=== PATIENT | female | born 1955 | race Caucasian/White ===

== ENCOUNTER → 2016-10-18 | Outpatient (CLI) | payer OTHER, MEDICARE ==
--- NOTE | 2016-10-18 14:19 | REPMRS ---
Patient History The patient states she had a clinical breast exam in 09/2016. Family history of breast cancer in 2 maternal aunts, colorectal cancer in 4 other maternal aunts at age 50 or over, and colorectal cancer in 2 maternal uncles at age 50 or over. Benign cyst aspiration of the left breast, 2015. Digital Woman Screen Mammo: October 18, 2016 - Exam #: [id number] Bilateral CC and MLO view(s) were taken. Technologist: Tania Verma, Technologist Prior study comparison: October 18, 2015, digital woman screen mammo performed at [facility]. September 29, 2014, digital woman screen mammo performed at [facility]. September 28, 2013, digital woman screen mammo performed at [facility]. FINDINGS: There are scattered fibroglandular densities. There has been no change in the appearance of the mammogram from the prior studies. There is a mild amount of residual fibroglandular tissue which is fairly symmetric. There is no interval development of dominant mass, architectural distortion, or clustered microcalcification suggestive of malignancy. There is a benign appearing intramammary node in the upper outer quadrant of the right breast. Scattered lymph nodes are seen in the axillae. No significant changes when compared with prior studies. ASSESSMENT: BI-RADS/ACR category 2 mammogram. Benign finding(s). Recommendation Routine screening mammogram in 1 year (for women over age 40). This mammogram was interpreted with the aid of an FDA-approved computer-aided dectection system. A. Negative x-ray reports should not delay biopsy if a dominant or clinically suspicious mass is present. B. Four to eight percent of cancers are not identified by mammography. C. Adenosis and dense breast may obscure an underlying neoplasm. Electronically Signed By: Rachid Jung MD 10/18/16 7820
== END ==
LOC: M WHC 13:07
PROVIDERS: ATTEND Nurse Practitioner Family
DX: Z12.31 Encounter for screening mammogram for malignant neoplasm of breast (principal); Z92.89 Personal history of other medical treatment

== ENCOUNTER → 2016-10-22 | Outpatient (CLI) | payer BC ==
--- NOTE | 2016-10-22 13:22 | REP ---
PELVIC ULTRASOUND: Real-time sonographic evaluation of the pelvis performed utilizing transabdominal and endovaginal technique. Bladder measures 6.8 x 8.8 x 5.0 cm. Patient has had a hysterectomy in 1994. Ovaries could not be seen. No mass or free fluid is seen in the pelvis. IMPRESSION: Negative pelvic ultrasound status post hysterectomy.
== END ==
LOC: M WHC 11:26
PROVIDERS: ATTEND Nurse Practitioner Family
DX: R10.31 Right lower quadrant pain (principal); Z90.710 Acquired absence of both cervix and uterus

== ENCOUNTER → 2017-11-04 | Outpatient (CLI) | payer MEDICARE, BC | LOC: M RAD 10:40 | DX: D24.1 Benign neoplasm of right breast (principal); N60.31 Fibrosclerosis of right breast | CPT/HCPCS: 77066 ==

== ENCOUNTER → 2017-12-24 | Outpatient (REF) | payer MEDICARE, BC | LOC: M LAB REF 09:16 | DX: C50.911 Malignant neoplasm of unspecified site of right female breast (principal) | CPT/HCPCS: 88305 ==

== ENCOUNTER → 2018-10-30 | Outpatient (CLI) | payer MEDICARE, BC | LOC: M WHC 10:50 | PROVIDERS: ATTEND Nurse Practitioner Family | DX: Z12.31 Encounter for screening mammogram for malignant neoplasm of breast (principal); Z53.8 Procedure and treatment not carried out for other reasons ==

== ENCOUNTER → 2020-01-11 | Outpatient (CLI) | payer MEDICARE, BC ==
--- NOTE | 2020-01-11 13:17 | REPMRS ---
Patient History The patient states she had a clinical breast exam in December 2019. Family history of breast cancer at age 50 or over in maternal aunt, colorectal cancer at age 50 or over in maternal aunt, colorectal cancer at age 50 or over in maternal aunt, colorectal cancer at age 50 or over in maternal aunt, colorectal cancer at age 50 or over in maternal aunt, colorectal cancer at age 50 or over in maternal uncle, colorectal cancer at age 50 or over in maternal uncle, breast cancer in maternal aunt. Benign core biopsy of the right breast, December 24, 2017. Benign cyst aspiration of the left breast, 2016. Benign lumpectomy of the left breast, 2016. 3D TOMOSYNTHESIS WAS PERFORMED. [facility] lifetime risk for breast cancer is 9.7%. VOLPARA DENSITY B. Digital Woman Screen Mammo: January 11, 2020 - Exam #: [id number] Bilateral CC and MLO view(s) were taken. Technologist: Viola Mayfield, Technologist Prior study comparison: November 05, 2018, digital mammo diagnostic bilateral, performed at [facility]. November 04, 2017, digital mammo diagnostic bilateral, performed at [facility]. FINDINGS: There are scattered fibroglandular densities. There has been no change in the appearance of the mammogram from the prior studies. There is a mild amount of residual fibroglandular tissue which is fairly symmetric. There is no interval development of dominant mass, architectural distortion, or clustered microcalcification suggestive of malignancy. Assessment: BI-RADS/ACR category 1 mammogram. Negative Mammogram. Recommendation Routine screening mammogram in 1 year (for women over age 40). This mammogram was interpreted with the aid of an FDA-approved computer-aided dectection system. Electronically Signed By: Wes Valencia MD 01/11/20 0523
== END ==
LOC: M WHC 11:13
PROVIDERS: ATTEND Nurse Practitioner Family
DX: Z01.419 Encounter for gynecological examination (general) (routine) without abnormal findings (principal); Z12.31 Encounter for screening mammogram for malignant neoplasm of breast; Z86.018 Personal history of other benign neoplasm
CPT/HCPCS: 77063; 77067; G0101

== ENCOUNTER 2020-09-08 12:34 | Emergency (ER) | payer MEDICARE, BC ==
[~2020-09-08] VITALS: Ht 157.5 cm; Wt 76.4 kg
--- OUTSIDE RECORDS SUMMARY | 2020-09-08 12:40 | CCD | Clinical Summary ---
Author Author RecoveredPersonRecord_000001 Lucy MD Organization Unknown Address [address] [place] [address] Phone Unavailable Care Team Providers Care [employer] Name Role Phone Stacie GRANADOS, Dr. Tarun Kong MD Unavailable [phone] Jacqueline, Nurse Practitioner, Jennifer Unavailable Unava ilable Social History Code Name Start Date Stop Date Never Smoker 07/11/2011 Sex: Female Problems SNOMED Problem Status Date Discovered Last Modifie d Date Other fatigue Active 07/07/2020 07/07/2020 Other chest pain Active 07/06/2020 07/06/2020 Familial hypercholesterolemia Active 06/14/2020 07/06/2020 Chronic rhinitis Active 06/26/2020 06/26/2020 Gastro-esophageal reflux disease without esophagitis A ctive 05/17/2009 06/26/2020 Nonalcoholic steatohepatitis (ARIAS) Active 06/2506/26/2020 Fatty (change of) liver, not elsewhere classified Reso lved 08/04/2017 06/25/2020 Obstructive sleep apnea, CPAP complaint Active 1 09/17/2014 06/26/2020 Mild intermittent asthma with (acute) exacerbation Act laura 07/15/2007 06/26/2020 Type 2 diabetes mellitus without complications Active 07/15/2007 06/26/2020 Migraine with aura, not intractable, without sta tus migrainosus Active 09/04/2016 03/09/2020 Low back pain Active 02/01/2020 02/01/2020 Body mass index (BMI) 32.0-32.9, adult Active 12/08/2019 Right upper quadrant pain Active 11/09/2018 [id number] Syncope Active 01/20/2018 01/20/2018 Liver steatosis, stage 2 Active 08/04/201702/2018 Body Mass Index 33.0-33.9, adult Active 07/07/20 17 07/07/2017 [id number] Migraine with aura, without mention of intractable migraine without mention of status migrainosus Active 09/04/2016 09/04/2016 [id number] Obstructive sleep apnea, CPAP compliant Active 1 09/17/2014 10/20/2017 [id number] Obstructive sleep apnea (adult) (pediatric) Active 07/17/2015 10/20/2017 Chronic maxillary sinusitis Active 06/13/2014 Nervousness Active 11/15/2013 Family history of colon cancer Active 04/19/2013 Vitamin B12 deficiency Active 11/02/2012 Fibrocystic disease of breasts Active 07/11/2011 Vitamin D deficiency Active 07/23/2010 [id number] Type II diabetes Active 07/15/2007 04/27/2018 [id number] Asthma Active 07/15/2007 04/27/2018 GERD Active 05/17/2009 04/27/2018 13632375 Hypercholesterolemia Active 11/21/2009 018 57172025 Meniere's disease, NOS Active 07/15/200704/27 Medications Brand Strength Dose/Route/Frequency RxNorm Code Date Started Date Discontinued Status Vitamin E 400 unit oral capsule Take 1 capsule(s) by mouth daily 933038 07/15/2007 Current MVI* pill 1 po qd 0 07/15/2007 Current Vitamin B6/Vitamin B12/Folic Acid/Calcium Carbonate 75mg/12m cg/1mg/200mg Tablet Take 1 tablet(s) by mouth daily 0 07/15/2007 Current alcohol swabs* swabs as directed 0 07/18/2009 C urrent Vitamin D3 1,000 unit (25 mcg) oral tablet 2 tabs po qd 783160 01/2011 Current meclizine 25 mg oral tablet 1 po TID prn 492214 08/23/2009 Current Vitamin B-12 100 mcg oral tablet Take 1 tablet(s) by mouth daily 9595 11/02/2012 Current Biotin* No Entry No Entry 0 05/28/2016 Current Endur-C with khurram hips No Entry No Entry 0 05/28/2016 Current ipratropium-albuteroL 0.5 mg-3 mg(2.5 mg base)/3 m L Inhalation Solution for Nebulization INHALE THE CONTENTS OF ONE VIAL VIA NEBU LIZER EVERY FOUR HOURS NEEDED [id number] 07/15/2007 Current Xopenex 1.25 mg/3 mL Inhalation Solution for Neb ulization INHALE ONE VIAL VIA NEBULIZER THREE TIMES A DAY (EVERY SIX TO EIGHT HOURS APART) (JOANNA) 584019 07/15/2007 Current Noritate 1 % Topical Cream Apply thin film to affected area carey ly 314412 07/15/2007 Current triamcinolone acetonide 55 mcg Intranasal Aerosol, Alba 1 s pray(s) in each nostril daily 6704369 07/15/2007 Current EPINEPHrine 0.3 mg/0.3 mL injection Auto-Injector IN JECT DIRECTED NEEDED WITH NEXT BEE STING 7015635 10/20/2017 Current Mylanta Double Strength 400mg/400mg/40mg Chewable Tablet Chew 1 tablet(s) prn 0 07/15/2007 Current Proventil HFA 90 mcg/actuation Inhalation HFA Aerosol Inhaler Inhale 2 puff(s) by mouth q 4 to 6 hr 738424 07/15/2007 Current triamterene-hydrochlorothiazid 37.5-25 mg oral capsule TAKE ONE CAPSULE BY MOUTH DAILY 875394 07/15/2007 Current Clarinex 5 mg oral tablet Take 1 tablet(s) by mouth daily 191407 1 09/15/2006 Current Farxiga 10 mg oral tablet Take 1 tablet(s) by mouth daily 0830040 02/13/2016 Current OneTouch Ultra Blue Test Strip No Entry TEST THREE TIMES A DAY 0 10/21/2014 Current Crestor 10 mg oral tablet Take 1 tablet(s) by mouth daily 767117 07/15/2007 Current Advair Diskus 500-50 mcg/dose Inhalation Blister, With Inhalation Device Inhale 1 puff(s) bid 979976 07/15/2007 Current metFORMIN 500 mg oral tablet TAKE ONE TABLET THREE TIMES A DAY 8 93076 04/17/2010 Current Differin 0.1 % Topical Cream Apply thin film to a ffected area daily at nighttime 616137 05/17/2009 Current miscellaneous medical supply miscellaneous Miscellaneous Neb kit for nebulizer machine daily 0 06/26/2020 06/27/2020 Stopped omeprazole 40 mg oral capsule,delayed release (ente antelmo coated) take 1 capsule (40 mg) by oral route 1 times per day before a meal 2002082903/09/2020 Current Astelin 137 mcg (0.1 %) Intranasal Aerosol, Alba 1 spray qd 64698 76 07/15/2007 Current Singulair 10 mg oral tablet 1 po qd 025432 07/15/2007 Current miscellaneous medical supply miscellaneous Miscellaneous Neb kit for nebulizer machine daily 0 06/26/2020 06/27/2020 Stopped miscellaneous medical supply miscellaneous Miscellaneous Neb kit for nebulizer machine daily 0 06/26/2020 Current * No Code - miscellaneous medical supply miscellaneous Miscellaneous * No Code - miscellaneous medical supply miscellaneous Miscellaneous Allergies Date Identified Type Cause Reaction Severity Status Code System Co de 07/15/2007 Allergy to substance Sulfas Low Active 07/15/2007 Allergy to substance Penicillins Low Active 07/15/2007 Allergy to substance Macrolides Low Active 07/15/2007 Allergy to substance Codeine Low Active RXNORM 2670 07/15/2007 Allergy to substance Ceclor Low Active RXNORM 087607 07/15/2007 Allergy to substance Hycomine Low Active 07/15/2007 Allergy to substance Doxycycline Low Active RXN ORM 3640 07/15/2007 Allergy to substance Vioxx Low Active RXNORM 354111 07/15/2007 Allergy to substance Vicodin Low Active RXNORM 392713 07/15/2007 Allergy to substance Aspirin Low Active RXNORM 1191 07/11/2011 Allergy to substance Valium Low Active RXNORM 730535 Procedures Code System Code Description Date Ordered Status CPT 46716 Ultrasound, abdominal, real time with image documentation; complete 06/26/2020 completed CPT 3074F Most recent systolic blood pressure < 130 mm Hg (DM) (HTN) 06/26/2020 completed CPT 3078F Most recent diastolic blood pres sure <80 mm Hg (HTN)1 (DM)4 06/26/2020 completed Immunizations Date Vaccine Status CVX 12/08/2019 Influenza, injectable, MDCK, quadrivalent, prese rvative Completed 186 11/25/2012 Td adult Completed 09 06/12/2015 Afluria Completed 141 06/19/2017 Afluria Completed 141 06/15/2018 Fluarix Quadrivalent pf Completed 150 06/03/2007 Flulaval Completed 141 05/24/2008 Flulaval Completed 141 05/24/2014 Flulaval Completed 141 06/10/2012 Fluvirin (4 + years dose) Completed 141 06/06/2010 Influenza Virus Vaccine, unspecified formulation Completed 88 05/30/2009 PNEUMOVAX 23 (Pneumococcal PPV23) Completed 33 03/11/2014 PNEUMOVAX 23 (Pneumococcal PPV23) Completed 33 11/22/2012 Adacel (Tdap) Completed 115 Vital Signs Date PulseOx Height Weight BMI Temp Respiration Heart Rate Blood P ressure IO2C 07/07/2020 97% 157.48cm 79.88kg 32.21kg/m2 36.11Cel 96/min 124/ 74mm[Hg] 06/26/2020 98% 157.48cm 80.29kg 32.38kg/m2 36.17Cel 100/min 118 /68mm[Hg] Assessment * E78.01 Familial hypercholesterolemia * R07.89 Other chest pain * R53.83 Other fatigue Plan of Treatment * Familial hypercholesterolemia* Orders: 39046 - Office/outpatient visit; established patient, level 4 * Other chest pain* Orders: 05321 - Fibrin degradation products, D-dimer; quantitative * Other fatigue* Orders: 77368 - Thyroid stimulating hormone (TSH) Referrals No referral reasons listed. Functional Status No Functional Status Listed Mental Status No Mental Status Listed Goals No Goals listed. Health Concerns No Health Concerns listed. Health Status Evaluations/Outcomes No Evaluations/Outcomes listed. Interventions No Interventions listed. Lab Test & Results Date Performed Test Result Status 06/26/2020 CANCELLED TEST: Hemoglobin (Hgb) A1c 7.2 UNK 06/26/2020 HgbA1c: Hemoglobin (Hgb) A1c 7.2 UNK 07/05/2020 COMPLETE BLOOD COUNT: LWBC 7.00 x10E3/uL compl eted 07/05/2020 COMPLETE BLOOD COUNT: LRBC 4.78 x10E6/uL compl eted 07/05/2020 COMPLETE BLOOD COUNT: LHGB 14.5 g/dL compl eted 07/05/2020 COMPLETE BLOOD COUNT: LHCT 43.7 % compl eted 07/05/2020 COMPLETE BLOOD COUNT: LMCV 91.4 fL compl eted 07/05/2020 COMPLETE BLOOD COUNT: LMCH 30.3 pg compl eted 07/05/2020 COMPLETE BLOOD COUNT: LMCHC 33.2 g/dL comp leted 07/05/2020 COMPLETE BLOOD COUNT: LRDW 12.2 % compl eted 07/05/2020 COMPLETE BLOOD COUNT: LPLT 310 x10E3/uL compl eted 07/05/2020 COMPLETE BLOOD COUNT: LMPV 8.9 fl compl eted 07/05/2020 COMPLETE BLOOD COUNT: ADRIANA% 68.6 % comp leted 07/05/2020 COMPLETE BLOOD COUNT: FAY% 21.9 % comp leted 07/05/2020 COMPLETE BLOOD COUNT: LMONO% 6.6 % com pleted 07/05/2020 COMPLETE BLOOD COUNT: LEOSIN% 1.4 % co mpleted 07/05/2020 COMPLETE BLOOD COUNT: LBASO% 0.4 % com pleted 07/05/2020 COMPLETE BLOOD COUNT: LIG% 1.1 % compl eted 07/05/2020 COMPLETE BLOOD COUNT: ADRIANA# 4.80 x10E3/uL comp leted 07/05/2020 COMPLETE BLOOD COUNT: FAY# 1.53 x10E3/uL comp leted 07/05/2020 COMPLETE BLOOD COUNT: LMONO# 0.46 x10E3/uL com pleted 07/05/2020 COMPLETE BLOOD COUNT: LEOSIN# 0.10 x10E3/uL co mpleted 07/05/2020 COMPLETE BLOOD COUNT: LBASO# 0.03 x10E3/uL com pleted 07/05/2020 COMPLETE BLOOD COUNT: LIG# 0.08 x10E3/uL compl eted 07/05/2020 COMPLETE BLOOD COUNT: LANRBC% 0 % co mpleted 07/05/2020 CHEST SINGLE VIEW: Radiology Report Exam Number: [id number] completed 07/05/2020 CHEST SINGLE VIEW: Radiology Report completed 07/05/2020 CHEST SINGLE VIEW: Radiology Report ATE OF EXAMINATION: 07/05/2020 14:14 EST completed 07/05/2020 CHEST SINGLE VIEW: Radiology Report completed 07/05/2020 CHEST SINGLE VIEW: Radiology Report CHEST SINGLE VIEW completed 07/05/2020 CHEST SINGLE VIEW: Radiology Report completed 07/05/2020 CHEST SINGLE VIEW: Radiology Report HISTORY: Janie st pain completed 07/05/2020 CHEST SINGLE VIEW: Radiology Report completed 07/05/2020 CHEST SINGLE VIEW: Radiology Report TECH NIQUE: Single frontal radiograph of chest completed 07/05/2020 CHEST SINGLE VIEW: Radiology Report completed 07/05/2020 CHEST SINGLE VIEW: Radiology Report COMPARISON: 03/25/2014 completed 07/05/2020 CHEST SINGLE VIEW: Radiology Report completed 07/05/2020 CHEST SINGLE VIEW: Radiology Report FINDINGS: completed 07/05/2020 CHEST SINGLE VIEW: Radiology Report completed 07/05/2020 CHEST SINGLE VIEW: Radiology Report No e vidence of focal consolidation, pneumothorax or large pleural completed 07/05/2020 CHEST SINGLE VIEW: Radiology Report effu trevor. Lungs are clear. Mediastinal structures are unremarkable. No completed 07/05/2020 CHEST SINGLE VIEW: Radiology Report aggressive o sseous lesions. completed 07/05/2020 CHEST SINGLE VIEW: Radiology Report completed 07/05/2020 CHEST SINGLE VIEW: Radiology Report IMPRESSION: completed 07/05/2020 CHEST SINGLE VIEW: Radiology Report completed 07/05/2020 CHEST SINGLE VIEW: Radiology Report No focal con solidation. completed 07/05/2020 CHEST SINGLE VIEW: Radiology Report completed 07/05/2020 CHEST SINGLE VIEW: Radiology Report Elec tronically signed in PS360 by: John Santos M.D. 07/05/2020 completed 07/05/2020 CHEST SINGLE VIEW: Radiology Report 14:49 EST completed 07/05/2020 CHEST SINGLE VIEW: Radiology Report completed 07/05/2020 CHEST SINGLE VIEW: Radiology Report completed 07/05/2020 CHEST SINGLE VIEW: Radiology Report Reported By: - Nilda SANTOS M.D. completed 07/05/2020 CHEST SINGLE VIEW: Radiology Report Signed By: Nilda SANTOS M.D. completed 07/05/2020 CHEST SINGLE VIEW: Radiology Report completed 07/05/2020 COMPREHENSIVE METABOLIC PROF: LGLU 168 mg/dL completed 07/05/2020 COMPREHENSIVE METABOLIC PROF: LBUN 16 mg/dL completed 07/05/2020 COMPREHENSIVE METABOLIC PROF: LCRE 0.444 mg/dL completed 07/05/2020 COMPREHENSIVE METABOLIC PROF: LGFR > 60 mL/min completed 07/05/2020 COMPREHENSIVE METABOLIC PROF: LCL 105 mmol/L completed 07/05/2020 COMPREHENSIVE METABOLIC PROF: RECYCLING TECHNICIAN 139 mmol/L completed 07/05/2020 COMPREHENSIVE METABOLIC PROF: LK 3.5 mmol/L completed 07/05/2020 COMPREHENSIVE METABOLIC PROF: LTCO2 28 mmol/L completed 07/05/2020 COMPREHENSIVE METABOLIC PROF: LAG 9.5 completed 07/05/2020 COMPREHENSIVE METABOLIC PROF: LCA 8.8 mg/dL completed 07/05/2020 COMPREHENSIVE METABOLIC PROF: LALP 65 U/L completed 07/05/2020 COMPREHENSIVE METABOLIC PROF: LTP 7.8 g/dL completed 07/05/2020 COMPREHENSIVE METABOLIC PROF: LALB 4.2 g/dL completed 07/05/2020 COMPREHENSIVE METABOLIC PROF: LGL 3.6 g/dL completed 07/05/2020 COMPREHENSIVE METABOLIC PROF: LA/G 1.2 completed 07/05/2020 COMPREHENSIVE METABOLIC PROF: LTBILI 0.4 mg/dL completed 07/05/2020 COMPREHENSIVE METABOLIC PROF: LALTI 39 U/L completed 07/05/2020 COMPREHENSIVE METABOLIC PROF: LAST 20 U/L completed 07/05/2020 TROPONIN I: LTROPI < 0.015 ng/mL completed 07/05/2020 TROPONIN I: LTROPI < 0.015 ng/mL completed 07/07/2020 D-DIMER: LDDIMER < 0.19 mg/L completed 07/07/2020 ULTRASENSITVE TSH: LTSH 2.33 uIU/mL complete d Test Code Code System Panel Description Date Ordered Note 70319 CPT Thyroid stimulating hormone (TSH) 020 Signed off by Dilan Quinones on 07-07-2020 04732 CPT Fibrin degradation products, D-dimer; sagrario ntitative 07/07/2020 Signed off by Dilan Quinones on 07-07-2020 39075 CPT Hemoglobin; glycosylated (A1C) 06/26/2020 Signed off by Dilan Quinones on 06-26-2020 Encounter Diagnosis * Familial hypercholesterolemia this is an ER follow upshe awoke ith sharp left anterior chest pain, hurt to pre ss on her chestlasted 6 hours or sowent to ER [facility] , work up neg for cardiacpai n has not recurredshe did not have calf pain but has had DVT in pastexam is NI t hink this was costochondritis, or pleuritis, will do a D dimer to be sureshe wou ld like a TSH as wellif D Dimer pos will do CTA lungs D dimer is neg 1415 hours Patient to be evaluated for familial hypercholesterolemia. She cannot recall wh en the diagnosis of hypercholesterolemia was made. Current treatment includes C restor and diet. Compliance with treatment has been good; she takes her medicat ion as directed, maintains her low cholesterol diet, and follows up as directed. She denies experiencing any hypercholesterolemia related symptoms. Most recen t lab tests include LDL: 89 (mg/dL) (03/09/2020), HDL: 42 (mg/dL) (03/09/2020) , Total Cholesterol: 149 (mg/dL) (03/09/2020), Triglycerides: 188 (mg/dL) (). * Other chest pain Other chest pain details; the discomfort is located primarily in the left anteri or chest. There is no radiation. The pain initially began two days ago. Typic ally, individual episodes of chest pain 6 hours. She characterizes the pain as moderate to severe in intensity and sharp. It seems to be worse with deep breat adrian. She has not found anything that alleviates the pain. She denies associat ed clammy sensation, cough, numbness, tingling, a sense of impending doom, nause a, vomiting, rapid heart beat, palpitations, dyspnea, diaphoresis, heartburn, be lching and fever. * Other fatigue
--- OUTSIDE RECORDS SUMMARY | 2020-09-08 12:40 | CCD ---
Continuity of Care Document (CCD) Created on: 06/22/2020 ThadLucy mendoza External Reference #: [id number] : [id number] Sex: Female Author Lucy Koroma M.D. Organization Unknown Address [address], [address], [place] [address] Phone [phone] Problems Active Problems Provider Date Moderate persistent asthma Onset: 2018 Allergic rhinitis caused by mold Onset: 10/06/2018 Note: On IT. 4+ reaction to mold spores on intradermal test completed in 2013. Allergic rhinitis due to animal hair and dander Onset: 10/06/2018 Note: On IT. 4+ positive reaction to cat dander on intradermal test completed in 2013. Allergic rhinitis due to house dust mite Onset: 10/06/2018 Note: On IT. 4+ reaction to dust mites o n intradermal test completed in 2013. Allergic rhinitis due to pollen Onset: 0 10/06/2018 Note: On IT. 4+ reaction to ragweed poll en with a 3+ reaction to various grass pollens on scratch test and a 3+ reaction to five weed mix on intradermal test completed in 2013. Immunodeficiency disorder Onset: 014 Allergic rhinitis Onset: Social History Type Date Description Comments Sex Unknown Tobacco Use Reviewed: 06/22/20 Patient has never smoked Smoking Status Reviewed: 06/22/20 Patient has never smoked Allergies, Adverse Reactions, Alerts Active Allergies Reaction Severity Comments Date Biaxin anaphylaxis 03/13/2019 Ceclor anaphylaxis 03/13/2019 Amoxicillin anaphylaxis 03/13/2019 Codeine Sulfate anaphylaxis 03/13/2019 Azithromycin anaphylaxis 03/13/2019 Aspirin stomach issues 03/13/2019 Rofecoxib Anaphylaxis 05/17/2019 Midazolam Facial swelling 05/17/2019 Sulfa Drugs Facial swelling 05/17/2019 Valium Facial swelling 06/22/2020 Medications Active Medications SIG Qnty Indications Ordering Provide r Date Singulair 10mg Tablets take 1 tablet (10 mg) by oral route once daily in the evening for 30 days 30tabs Yobani Troncoso M.D. 04/20/2018 Dyazide 37.5-25mg Capsules take 1 capsule by oral route once daily Unknown Epipen 2-Devonte 0.3mg/0 .3ML Solution Auto-Inject inject 0.3 milliliter (0.3 mg) by intram uscular route once as needed for anaphylaxis Unknown Crestor 10mg Tablets take 1 tablet (10 mg) by oral route once daily Unknown Differin 0.1% Cream apply to the affected area(s) by topical route once daily at bedtime U nknown Noritate 1% Cream apply a thin layer to the affected area(s) by topical route once daily Unknown Meclizine HCL 25mg Tablets take 1 tablet (25 mg) by oral route 3 times per day as needed Unknown Metformin HCL 500mg Tablets take 1 tablet (500 mg) by oral route 3 times per day with morning and evening meals Unknown Ipratropium [place]/Albuterol Sulfate 0.5-2.5(3)mg/3ML Solution inhale 3 milliliters by nebulization route as needed Unknown Farxiga 5mg Tablets take 1 tablet (5 mg) by oral route once daily in the morning Unknown Levalbuterol HCL 1.25mg/3ML Nebuli zer Take 3ml via nebulizer every 4 hours as needed Unknow n Advair Diskus 500-50mcg/Dose Aerosol Unknown Clarinex 5mg Tablets Take 1 tablet once daily Unknown Azelastine HCL (Nasal) 137mcg/[place] Solution 1 spray each nostril every day every night Unknown Nasacort Allergy 24HR 55mcg/Act Ae rosol administer 2 sprays per nostril once daily. Unkn own Medications Administered in Office Medication SIG Qnty Indications Ordering Provider Date Allergy Injection 2 Or More Injection Yobani Troncoso M.D. 06/02/2020 Allergy Injection 2 Or More Injection Yobani Troncoso M.D. 05/12/2020 Allergy Injection 2 Or More Injection GRACE Butler 04/19/2020 Allergy Injection 2 Or More Injection Yobani Troncoso M.D. 04/19/2020 Allergy Injection 2 Or More Injection Yobani Troncoso M.D. 03/30/2020 Allergy Injection 2 Or More Injection Yobani Troncoso M.D. 03/06/2020 Allergy Injection 2 Or More Injection Yobani Troncoso M.D. 02/15/2020 Allergy Injection 2 Or More Injection Yobani Troncoso M.D. 01/18/2020 Allergy Injection 2 Or More Injection Yobani Troncoso M.D. 12/23/2019 Allergy Injection 2 Or More Injection Yobani Troncoso M.D. 12/01/2019 Allergy Injection 2 Or More Injection Yobani Troncoso M.D. 11/10/2019 Allergy Injection 2 Or More Injection Yobani Troncoso M.D. 10/21/2019 Allergy Injection 2 Or More Injection Yobani Troncoso M.D. 09/30/2019 Allergy Injection 2 Or More Injection Yobani Troncoso M.D. 09/10/2019 Allergy Injection 2 Or More Injection Yobani Troncoso M.D. 08/19/2019 Allergy Injection 2 Or More Injection Yobani Troncoso M.D. 07/27/2019 Allergy Injection 2 Or More Injection Yobani Troncoso M.D. 07/06/2019 Allergy Injection 2 Or More Injection Yobani Troncoso M.D. 06/15/2019 Allergy Injection 2 Or More Injection Yobani Troncoso M.D. 05/26/2019 Allergy Injection 2 Or More Injection Yobani Troncoso M.D. 05/06/2019 Allergy Injection 2 Or More Injection KENROY Forrest 04/15/2019 Allergy Injection 2 Or More Injection Yobani Troncoso M.D. 04/15/2019 Allergy Injection 2 Or More Injection Yobani Troncoso M.D. 03/25/2019 Immunizations Description No Information Available Vital Signs Date Vital Result Comment 06/22/2020 3:11pm Weight 176.12 lb Height 62 inches 5'2" Heart Rate 87 /min Respiratory Rate 16 /min BP Systolic 117 mmHg BP Diastolic 74 mmHg BMI (Body Mass Index) 32.2 kg/m2 05/17/2019 2:33pm Weight 176.25 lb Height 62 inches 5'2" Heart Rate 99 /min Respiratory Rate 18 /min BP Systolic 113 mmHg BP Diastolic 67 mmHg BMI (Body Mass Index) 32.2 kg/m2 Results Description No Information Available Procedures Date Code Description Status 06/02/2020 55681 Allergy Injection 2 Or More Comp leted 05/18/2020 12418 Allergy Antigens Single Or Multi ple Completed 05/12/2020 52297 Allergy Injection 2 Or More Comp leted 04/19/2020 90793 Allergy Injection 2 Or More Comp leted 04/19/2020 63820 Allergy Injection 2 Or More Comp leted 03/30/2020 98388 Allergy Injection 2 Or More Comp leted 03/06/2020 06765 Allergy Injection 2 Or More Comp leted 02/15/2020 49817 Allergy Injection 2 Or More Comp leted 01/18/2020 14544 Allergy Injection 2 Or More Comp leted 12/23/2019 04246 Allergy Injection 2 Or More Comp leted Medical Devices Description No Information Available Encounters Type Date Location Provider Dx Diagnosis Office Visit 06/22/2020 3:00p Main Office Yobani Troncoso M.D. J30.1 Allergic rhinitis due to pollen J30.81 Allergic rhinitis due to ani mal (cat) (dog) hair and dander J30.89 Other allergic rhinitis J45.40 Moderate persistent asthma, uncomplicated Assessments Date Code Description Provider 06/22/2020 J30.1 Allergic rhinitis due to pollen Yobani Troncoso M.D. 06/22/2020 J30.81 Allergic rhinitis due to animal (cat) hair and dander Yobani Troncoso M.D. 06/22/2020 J30.89 Allergic rhinitis due to dust mi m[place] and mold spores. Yobani Troncoso M.D. 06/22/2020 J45.40 Moderate persistent asthma, unco mplicated Yobani Troncoso M.D. Plan of Treatment Future Appointment(s):* 06/21/2021 1:30 pm - Yobani Troncoso M.D. at Main Office * 06/23/2020 8:50 am - Allergy Injection at Main Office 06/22/2020 - Yobani Troncoso M.D.* J30.1 Allergic rhinitis due to pollen* Recommendations:* Effective allergen avoidance measures reviewed and recommended. The patient should stay on immunotherapy as per protocol. She is not a candidate to stop IT because of significant increase in symptoms after discontinuation in the past. Risks and benefits associated with allergy injections were reviewed. She should continue taking Nasacort nasal spray every night. The spray should be used on a consistent, daily basis to be effective. The patient should continue using azelastine nasal spray twice daily on days her symptoms are worse. She should use oral antihistamine prn itching and sneezing and on days she gets her allergy injections. * J30.81 Allergic rhinitis due to animal (cat) hair and dander* Recommendations: * Effective allergy avoidance measures reviewed and recommended. See additional recommendations above. * J30.89 Allergic rhinitis due to dust mites and mold spores.* Recommendations: * Effective allergy avoidance measures were reviewed and recommended. See additional recommendations above. * J45.40 Moderate persistent asthma, uncomplicated* Recommendations:* The patient should stay on current asthma regimen as directed. Should follow up with Pulmonology as planned. * All * Follow up:* 12 months. Sooner if needed. Functional Status Description No Information Available Mental Status Description No Information Available Referrals Description No Information Available
--- OUTSIDE RECORDS SUMMARY | 2020-09-08 12:40 | CCD | Continuity of Care Document ---
Author Author Lucy PHAM M.D. Organization Unknown Address [address], [address], [place] [address] Phone [phone] Problems Active Problems Provider Date Moderate persistent [...] Immunodeficiency disorder Onset: 014 Allergic rhinitis Onset: Obstructive sleep apnea syndrome Yobani Pham M.D. O nset: 06/22/2020 Social History Type Date Description Comments Sex [...] the evening for 30 days 30tabs Yobani Pham M.D. 04/20/2018 Dyazide 37.5-25mg Capsules take 1 [...] with morning and evening meals Unknown Ipratropium [place]/Albuterol Sulfate 0.5-2.5(3)mg/3ML Solution inhale 3 milliliters by nebulization route as needed Unknown Farxiga 5mg Tablets take 1 tablet (5 mg) by oral route once daily in the morning Unknown Levalbuterol HCL 1.25mg/3ML Nebuli zer Take 3ml via nebulizer every 4 hours as needed Unknow n Advair Diskus 500-50mcg/Dose Aerosol Unknown Clarinex 5mg Tablets Take 1 tablet once daily Unknown Azelastine HCL (Nasal) 137mcg/[place] Solution 1 spray each nostril every day every night Unknown Nasacort Allergy 24HR 55mcg/Act Ae rosol administer 2 sprays per nostril once daily. Unkn own Medications Administered in Office Medication SIG Qnty Indications Ordering Provider Date Allergy Injection 2 Or More Injection Yobani Pham M.D. 07/12/2020 Allergy Injection 2 Or More Injection Yobani Pham M.D. 06/23/2020 Allergy Injection 2 Or More Injection Yobani Pham M.D. 06/02/2020 Allergy Injection 2 Or More Injection Masoud Hayden.DOj 05/12/2020 Allergy Injection 2 Or More Injection GRACE Butler 04/19/2020 Allergy Injection 2 Or More Injection Chandler HaydenDOj 04/19/2020 Allergy Injection 2 Or More Injection Masoud Hayden.DOj 03/30/2020 Allergy Injection 2 Or More Injection Yobani Pham M.D. 03/06/2020 Allergy Injection 2 Or More Injection Yobani Pham M.D. 02/15/2020 Allergy Injection 2 Or More Injection Yobani Pham M.D. 01/18/2020 Allergy Injection 2 Or More Injection Yobani Pham M.D. 12/23/2019 Allergy Injection 2 Or More Injection Yobani Pham M.D. 12/01/2019 Allergy Injection 2 Or More Injection Masoud Hayden.DOj 11/10/2019 Allergy Injection 2 Or More Injection Yobani Pham M.D. 10/21/2019 Allergy Injection 2 Or More Injection Masoud Hayden.DOj 09/30/2019 Allergy Injection 2 Or More Injection Masoud Hayden.DOj 09/10/2019 Allergy Injection 2 Or More Injection Yobani Pham M.D. 08/19/2019 Allergy Injection 2 Or More Injection Masoud Hayden.DOj 07/27/2019 Allergy Injection 2 Or More Injection Masoud Hayden.DOj 07/06/2019 Allergy Injection 2 Or More Injection Masoud Hayden.DOj 06/15/2019 Allergy Injection 2 Or More Injection Masoud Hayden.DOj 05/26/2019 Allergy Injection 2 Or More Injection Masoud Hayden.DOj 05/06/2019 Allergy Injection 2 Or More Injection KENROY Forrest 04/15/2019 Allergy Injection 2 Or More Injection Yobanijason Pham M.D. 04/15/2019 Allergy Injection 2 Or More Injection Yobani Pham M.D. 03/25/2019 Immunizations Description No Information Available [...] Information Available Procedures Date Code Description Status 07/12/2020 10657 Allergy Injection 2 Or More Comp leted 06/23/2020 78908 Allergy Injection 2 Or More Comp leted 06/02/2020 50515 Allergy Injection 2 Or More Comp leted 05/18/2020 29908 Allergy Antigens Single Or Multi ple Completed 05/12/2020 22684 Allergy Injection 2 Or More Comp leted 04/19/2020 72688 Allergy Injection 2 Or More Comp leted 04/19/2020 67126 Allergy Injection 2 Or More Comp leted 03/30/2020 68231 Allergy Injection 2 Or More Comp leted 03/06/2020 47177 Allergy Injection 2 Or More Comp leted 02/15/2020 18252 Allergy Injection 2 Or More Comp leted 01/18/2020 29467 Allergy Injection 2 Or More Comp leted Medical Devices Description No Information Available Encounters Type Date Location Provider Dx Diagnosis Office Visit 06/22/2020 3:00p Main Office Yobani Pham M.D. J30.1 Allergic rhinitis due to pollen J30.81 Allergic rhinitis due to ani mal (cat) (dog) hair and dander J30.89 Other allergic rhinitis J45.40 Moderate persistent asthma, uncomplicated G47.33 Obstructive sleep apnea (salo lt) (pediatric) Assessments Date Code Description Provider 07/12/2020 J30.1 Allergic rhinitis due to pollen Yobani Pham M.D. 07/12/2020 J30.81 Allergic rhinitis due to animal (cat) (dog) hair and dander Yobani Pham M.D. 07/12/2020 J30.89 Other allergic rhinitis Yobani Pham M.D. Plan of Treatment Future Appointment(s):* 08/02/2020 9:10 am - Allergy Injection at Main Office * 06/21/2021 1:30 pm - Yobani Pham M.D. at Main Office 06/22/2020 - Yobani Pham M.D.* J30.1 Allergic rhinitis due to pollen* [...] days her symptoms are worse. She should continue taking Singulair daily as directed. She should use oral antihistamine prn itching and sneezing and on days she gets her allergy injections. The risks and benefits associated with these medications were reviewed and discussed with patient in office today. * J30.81 Allergic rhinitis due to animal (cat) hair and dander* Recommendations: * Effective allergy avoidance measures reviewed and recommended. See additional recommendations above. * J30.89 Allergic rhinitis due to dust mites and mold spores.* Recommendations: * Effective allergy avoidance measures were reviewed and recommended. See additional recommendations above. * J45.40 Moderate persistent asthma, uncomplicated* Recommendations:* Continue on present regimen as recommended by pulmonology. Follow-up with their office as scheduled. * G47.33 Obstructive sleep apnea (adult)* Recommendations:* Continue on present regimen as recommended by pulmonology. Follow-up with their office as scheduled. * All * Follow up:* 12 months. Sooner if needed. Functional Status Description No Information Available Mental Status Description No Information Available Referrals Description No Information Available
--- OUTSIDE RECORDS SUMMARY | 2020-09-08 12:40 | CCD | Clinical Summary ---
Author Author RecoveredPersonRecord_[id number] Lucy MD Organization Unknown Address [address] [place] [address] Phone Unavailable Care Team Providers Care Quality Control Operator Name Role Phone Stacie GRANADOS, Dr. Tarun Kong MD Unavailable [phone] Penny Goetz Unavailable Unavailable Social History Code Name Start Date Stop Date Never Smoker 07/11/2011 Sex: Female Problems SNOMED Problem Status Date Discovered Last Modifie d Date Bronchitis, not specified as acute or chronic Active 08/15/2020 08/15/2020 Unspecified abdominal pain Active 08/15/2020 0 08/15/2020 Type 2 diabetes mellitus without complications Active 07/15/2007 07/30/2020 COVID-19 Resolved 07/26/2020 07/26/2020 Other fatigue Active 07/07/2020 07/07/2020 Other chest pain Active 07/06/2020 07/06/2020 Familial hypercholesterolemia Active 06/14/2020 07/06/2020 Chronic rhinitis Active 06/26/2020 06/26/2020 Gastro-esophageal reflux disease without esophagitis A ctive 05/17/2009 06/26/2020 Nonalcoholic steatohepatitis (ARIAS) Active 06/2506/26/2020 Obstructive sleep apnea, CPAP complaint Active 1 09/17/2014 06/26/2020 Mild intermittent asthma with (acute) exacerbation Act laura 07/15/2007 06/26/2020 Migraine with aura, not intractable, without sta tus migrainosus Active 09/04/2016 03/09/2020 Low back pain Active 02/01/2020 02/01/2020 Body mass index (BMI) 32.0-32.9, adult Active 12/08/2019 Right upper quadrant pain Active 11/09/2018 248422167 Syncope Active 01/20/2018 01/20/2018 Liver steatosis, stage 2 Active 08/04/201702/2018 Body Mass Index 33.0-33.9, adult Active 07/07/20 17 07/07/2017 5135803 Migraine with aura, without mention of intractable migraine without mention of status migrainosus Active 09/04/2016 09/04/2016 [id number] Obstructive sleep apnea, CPAP compliant Active 1 09/17/2014 10/20/2017 [id number] Obstructive sleep apnea (adult) (pediatric) Active 07/17/2015 10/20/2017 Chronic maxillary sinusitis Active 06/13/2014 Nervousness Active 11/15/2013 Family history of colon cancer Active 04/19/2013 Vitamin B12 deficiency Active 11/02/2012 Fibrocystic disease of breasts Active 07/11/2011 Vitamin D deficiency Active 07/23/2010 83844429 Type II diabetes Active 07/15/2007 04/27/2018 253752406 Asthma Active 07/15/2007 04/27/2018 GERD Active 05/17/2009 04/27/2018 95430563 Hypercholesterolemia Active 11/21/2009 018 27466146 Meniere's disease, NOS Active 07/15/200704/27 Medications Brand Strength Dose/Route/Frequency RxNorm Code Date Started Date Discontinued Status Vitamin E 400 unit oral capsule Take 1 capsule(s) by mouth daily 388501 07/15/2007 Current MVI* pill 1 po qd 0 07/15/2007 Current Vitamin B6/Vitamin B12/Folic Acid/Calcium Carbonate 75mg/12m cg/1mg/200mg Tablet Take 1 tablet(s) by mouth daily 0 07/15/2007 Current alcohol swabs* swabs as directed 0 07/18/2009 C urrent Vitamin D3 1,000 unit (25 mcg) oral tablet 2 tabs po qd 572603 01/2011 Current meclizine 25 mg oral tablet 1 po TID prn 657170 08/23/2009 Current Vitamin B-12 100 mcg oral tablet Take 1 tablet(s) by mouth daily 30 9595 11/02/2012 Current Biotin* No Entry No Entry 0 05/28/2016 Current Endur-C with khurram hips No Entry No Entry 0 05/28/2016 Current ipratropium-albuteroL 0.5 mg-3 mg(2.5 mg base)/3 m L Inhalation Solution for Nebulization INHALE THE CONTENTS OF ONE VIAL VIA NEBU LIZER EVERY FOUR HOURS NEEDED 1427927 07/15/2007 Current triamcinolone acetonide 55 mcg Intranasal Aerosol, [place] 1 s pray(s) in each nostril daily 1267432 07/15/2007 Current Mylanta Double Strength 400mg/400mg/40mg Chewable Tablet Chew 1 tablet(s) prn 0 07/15/2007 Current Proventil HFA 90 mcg/actuation Inhalation HFA Aerosol Inhaler Inhale 2 puff(s) by mouth q 4 to 6 hr 575492 07/15/2007 Current Clarinex 5 mg oral tablet Take 1 tablet(s) by mouth daily 606580 1 09/15/2006 Current OneTouch Ultra Blue Test Strip No Entry TEST THREE TIMES A DAY 0 10/21/2014 Current Crestor 10 mg oral tablet Take 1 tablet(s) by mouth daily 921246 07/15/2007 Current Advair Diskus 500-50 mcg/dose Inhalation Blister, With Inhalation Device Inhale 1 puff(s) bid 319831 07/15/2007 Current metFORMIN 500 mg oral tablet TAKE ONE TABLET THREE TIMES A DAY 8 16438 04/17/2010 Current Differin 0.1 % Topical Cream Apply thin film to a ffected area daily at nighttime 042929 05/17/2009 Current omeprazole 40 mg oral capsule,delayed release (ente antelmo coated) take 1 capsule (40 mg) by oral route 1 times per day before a meal 489857 03/09/2020 Current Astelin 137 mcg (0.1 %) Intranasal Aerosol, [place] 1 spray qd 09388 76 07/15/2007 Current Singulair 10 mg oral tablet 1 po qd 415637 07/15/2007 Current miscellaneous medical supply miscellaneous Miscellaneous Neb kit for nebulizer machine daily 0 06/26/2020 Current EPINEPHrine 0.3 mg/0.3 mL injection Auto-Injector IN JECT DIRECTED NEEDED WITH NEXT BEE STING 9567721 10/20/2017 Current Farxiga 10 mg oral tablet Take 1 tablet(s) by mouth daily 2969882 02/13/2016 Current triamterene-hydrochlorothiazid 37.5-25 mg oral capsule TAKE ONE CAPSULE BY MOUTH DAILY 080106 07/15/2007 Current Xopenex 1.25 mg/3 mL Inhalation Solution for Neb ulization INHALE ONE VIAL VIA NEBULIZER THREE TIMES A DAY (EVERY SIX TO EIGHT HOURS APART) (JOANNA) 481379 07/15/2007 Current Noritate 1 % Topical Cream Apply thin film to affected area carey ly 123307 07/15/2007 Current predniSONE 20 mg oral tablet take 2 tablets (40 m g) by oral route once daily for 5 days 929136 07/26/2020 Current ciprofloxacin HCl 500 mg oral tablet take 1 tablet (500 m g) by oral route 2 times per day 039594 08/15/2020 Current Allergies Date Identified Type Cause Reaction Severity Status Code System Co de 07/15/2007 Allergy to substance Sulfas Low Active 07/15/2007 Allergy to substance Penicillins Low Active 07/15/2007 Allergy to substance Macrolides Low Active 07/15/2007 Allergy to substance Codeine Low Active RXNORM 2670 07/15/2007 Allergy to substance Ceclor Low Active RXNORM 463941 07/15/2007 Allergy to substance Hycomine Low Active 07/15/2007 Allergy to substance Doxycycline Low Active RXN ORM 3640 07/15/2007 Allergy to substance Vioxx Low Active RXNORM 531465 07/15/2007 Allergy to substance Vicodin Low Active RXNORM 786014 07/15/2007 Allergy to substance Aspirin Low Active RXNORM 1191 07/11/2011 Allergy to substance Valium Low Active RXNORM 851825 Procedures / Labs No procedures listed. Immunizations Date Vaccine Status CVX 12/08/2019 Influenza, [...] Respiration Heart Rate Blood P ressure IO2C 08/15/2020 97% 157.48cm 76.2kg 30.73kg/m2 36.39Cel 99/min 122/5 4mm[Hg] Assessment * R10.9 Unspecified abdominal pain * J40 Bronchitis, not specified as acute or chronic Plan of Treatment * Unspecified abdominal pain* Orders: [id number] - Established patient outpatient visit, 20-29 minutes 69932 - Urinalysis, automated, with microscopy 91552 - Culture, bacterial; with isolation and presumptive identification of eac h isolate, urine * Bronchitis, not specified as acute or chronic* Prescriptions: [New Rx] ciprofloxacin HCl 500 mg oral tablet [take 1 tablet (500 mg) by oral ro [place] 2 times per day], #14 (fourteen) tablets, Refills: 0 (zero) Referrals No referral reasons listed. Functional Status No Functional Status Listed Mental Status No Mental Status Listed Goals No Goals listed. Health Concerns No Health Concerns listed. Health Status Evaluations/Outcomes No Evaluations/Outcomes listed. Interventions No Interventions listed. Lab Results No lab results listed. Encounter Diagnosis * Unspecified abdominal pain 1 week of LBP both flanks no dysuria, no blood , no NVDcoughing a lot , especial ly after a duoneb, yellow phlegmexam reveals tender muscles to low back, I doubt this is renal, this is muscular from coughing so muchwill have her continue duo nebs and will do cipro for bronchitis ( no other choices with her allergies) jorge l send urine for completeness * Bronchitis, not specified as acute or chronic
--- OUTSIDE RECORDS SUMMARY | 2020-09-08 12:40 | CCD | Continuity of Care Document ---
Author Lucy Koroma M.D. Organization Unknown Address [address], [address], [place] [address] Phone [phone] Problems Active Problems Provider Date Moderate persistent [...] rhinitis Onset: Obstructive sleep apnea syndrome Yobani Troncoso M.D. O nset: 06/22/2020 Social History Type [...] with morning and evening meals Unknown Ipratropium [place]/Albuterol Sulfate 0.5-2.5(3)mg/3ML Solution inhale 3 milliliters by nebulization route as needed Unknown Farxiga 5mg Tablets take 1 tablet (5 mg) by oral route once daily in the morning Unknown Levalbuterol HCL 1.25mg/3ML Nebuli zer Take 3ml via nebulizer every 4 hours as needed Unknow n Advair Diskus 500-50mcg/Dose Aerosol Unknown Clarinex 5mg Tablets Take 1 tablet once daily Unknown Azelastine HCL (Nasal) 137mcg/[place] Solution 1 spray each nostril every day every night Unknown Nasacort Allergy 24HR 55mcg/Act Ae rosol administer 2 sprays per nostril once daily. Unkn own Medications Administered in Office Medication SIG Qnty Indications Ordering Provider Date Allergy Injection 2 Or More Injection Yobani Troncoso M.D. 08/01/2020 Allergy Injection 2 Or More Injection Yobani Troncoso M.D. 07/12/2020 Allergy Injection 2 Or More Injection Yobani Troncoso M.D. 06/23/2020 Allergy Injection 2 Or More [...] 09/10/2019 Allergy Injection 2 Or More Injection Chandler HaydenDOj 08/19/2019 Allergy Injection 2 Or More Injection [...] Information Available Procedures Date Code Description Status 08/01/2020 45364 Allergy Injection 2 Or More Comp leted 07/12/2020 56035 Allergy Injection 2 Or More Comp leted 06/23/2020 44803 Allergy Injection 2 Or More Comp leted 06/02/2020 72112 Allergy Injection 2 Or More Comp leted 05/18/2020 88500 Allergy Antigens Single Or Multi ple Completed 05/12/2020 77904 Allergy Injection 2 Or More Comp leted 04/19/2020 44173 Allergy Injection 2 Or More Comp leted 04/19/2020 75693 Allergy Injection 2 Or More Comp leted 03/30/2020 48519 Allergy Injection 2 Or More Comp leted 03/06/2020 07483 Allergy Injection 2 Or More Comp leted 02/15/2020 80738 Allergy Injection 2 Or More Comp leted [...] lt) (pediatric) Assessments Date Code Description Provider 08/01/2020 J30.1 Allergic rhinitis due to pollen Yobani Troncoso M.D. 08/01/2020 J30.81 Allergic rhinitis due to animal (cat) (dog) hair and dander Yobani Troncoso M.D. 08/01/2020 J30.89 Other allergic rhinitis Yobani Troncoso M.D. Plan of Treatment Future Appointment(s):* 08/22/2020 9:40 am - Allergy Injection at Main Office * 06/21/2021 1:30 pm - Yobani Troncoso M.D. at Main Office 06/22/2020 - Yobani Troncoso [...]
--- OUTSIDE RECORDS SUMMARY | 2020-09-08 12:40 | CCD | Clinical Summary ---
Author Author RecoveredPersonRecord_000001 Lucy MD Organization Unknown Address [address] [facility] [address] [place] [address] Phone Unavailable Care Team Providers Care Student Financial Aid Manager Name Role Phone Mimi ShermanA. Unavailable Tori Campo MA Unavailable Unavailable Social History Code Name Start Date Stop Date Never Smoker 07/11/2011 Sex: Female Problems SNOMED Problem Status Date Discovered Last Modifie d Date Type 2 diabetes mellitus without complications Active 07/15/2007 07/30/2020 COVID-19 Active 07/26/2020 07/26/2020 Other fatigue Active 07/07/2020 07/07/2020 [...] 12/08/2019 Right upper quadrant pain Active 11/09/2018 [id number] Syncope Active 01/20/2018 01/20/2018 Liver steatosis, stage 2 Active 08/04/201702/2018 Body Mass Index 33.0-33.9, adult Active 07/07/20 17 07/07/2017 6084739 Migraine with aura, without mention of intractable migraine without mention of status migrainosus Active 09/04/2016 09/04/2016 [id number] Obstructive sleep apnea, CPAP compliant Active 1 09/17/2014 10/20/2017 [id number] Obstructive sleep apnea (adult) (pediatric) Active 07/17/2015 10/20/2017 Chronic maxillary sinusitis Active 06/13/2014 Nervousness Active 11/15/2013 Family history of colon cancer Active 04/19/2013 Vitamin B12 deficiency Active 11/02/2012 Fibrocystic disease of breasts Active 07/11/2011 Vitamin D deficiency Active 07/23/2010 84635457 Type II diabetes Active 07/15/2007 04/27/2018 [id number] Asthma Active 07/15/2007 04/27/2018 GERD Active 05/17/2009 04/27/2018 36445875 Hypercholesterolemia Active 11/21/2009 018 09416444 Meniere's disease, NOS Active 07/15/200704/27 Medications Brand Strength Dose/Route/Frequency RxNorm Code Date Started Date Discontinued Status Vitamin E 400 unit oral capsule Take 1 capsule(s) by mouth daily 297010 07/15/2007 Current MVI* pill 1 po qd 0 07/15/2007 Current Vitamin B6/Vitamin B12/Folic Acid/Calcium Carbonate 75mg/12m cg/1mg/200mg Tablet Take 1 tablet(s) by mouth daily 0 07/15/2007 Current alcohol swabs* swabs as directed 0 07/18/2009 C urrent Vitamin D3 1,000 unit (25 mcg) oral tablet 2 tabs po qd 344305 01/2011 Current meclizine 25 mg oral tablet 1 po TID prn 980428 08/23/2009 Current Vitamin B-12 100 mcg oral tablet Take 1 tablet(s) by mouth daily 30 9595 11/02/2012 Current Biotin* No Entry No Entry 0 05/28/2016 Current Endur-C with khurram hips No Entry No Entry 0 05/28/2016 Current ipratropium-albuteroL 0.5 mg-3 mg(2.5 mg base)/3 m L Inhalation Solution for Nebulization INHALE THE CONTENTS OF ONE VIAL VIA NEBU LIZER EVERY FOUR HOURS NEEDED [id number] 07/15/2007 Current triamcinolone acetonide 55 mcg Intranasal Aerosol, [place] 1 s pray(s) in each nostril daily 1535900 07/15/2007 Current Mylanta Double Strength 400mg/400mg/40mg Chewable Tablet Chew 1 tablet(s) prn 0 07/15/2007 Current Proventil HFA 90 mcg/actuation Inhalation HFA Aerosol Inhaler Inhale 2 puff(s) by mouth q 4 to 6 hr 488009 07/15/2007 Current Clarinex 5 mg oral tablet Take 1 tablet(s) by mouth daily 848959 1 09/15/2006 Current SPARQCode Ultra Blue Test Strip No Entry TEST THREE TIMES A DAY 0 10/21/2014 Current Crestor 10 mg oral tablet Take 1 tablet(s) by mouth daily 700163 07/15/2007 Current Advair Diskus 500-50 mcg/dose Inhalation Blister, With Inhalation Device Inhale 1 puff(s) bid 458614 07/15/2007 Current metFORMIN 500 mg oral tablet TAKE ONE TABLET THREE TIMES A DAY 8 34365 04/17/2010 Current Differin 0.1 % Topical Cream Apply thin film to a ffected area daily at nighttime 852037 05/17/2009 Current omeprazole 40 mg oral capsule,delayed release (ente antelmo coated) take 1 capsule (40 mg) by oral route 1 times per day before a meal 2002082903/09/2020 Current Astelin 137 mcg (0.1 %) Intranasal Aerosol, [place] 1 spray qd 30591 76 07/15/2007 Current Singulair 10 mg oral tablet 1 po qd 463827 07/15/2007 Current miscellaneous medical supply miscellaneous Miscellaneous Neb kit for nebulizer machine daily 0 06/26/2020 Current EPINEPHrine 0.3 mg/0.3 mL injection Auto-Injector IN JECT DIRECTED NEEDED WITH NEXT BEE STING 1875823 10/20/2017 Current Farxiga 10 mg oral tablet Take 1 tablet(s) by mouth daily 6071575 02/13/2016 Current triamterene-hydrochlorothiazid 37.5-25 mg oral capsule TAKE ONE CAPSULE BY MOUTH DAILY 396665 07/15/2007 Current Xopenex 1.25 mg/3 mL Inhalation Solution for Neb ulization INHALE ONE VIAL VIA NEBULIZER THREE TIMES A DAY (EVERY SIX TO EIGHT HOURS APART) (JOANNA) 214155 07/15/2007 Current Noritate 1 % Topical Cream Apply thin film to affected area carey ly 685357 07/15/2007 Current predniSONE 20 mg oral tablet take 2 tablets (40 m g) by oral route once daily for 5 days 648725 07/26/2020 Current Allergies Date Identified Type Cause Reaction Severity Status Code System Co de 07/15/2007 Allergy to substance Sulfas Low Active 07/15/2007 Allergy to substance Penicillins Low Active 07/15/2007 Allergy to substance Macrolides Low Active 07/15/2007 Allergy to substance Codeine Low Active RXNORM 2670 07/15/2007 Allergy to substance Ceclor Low Active RXNORM 134993 07/15/2007 Allergy to substance Hycomine Low Active 07/15/2007 Allergy to substance Doxycycline Low Active RXN ORM 3640 07/15/2007 Allergy to substance Vioxx Low Active RXNORM 722313 07/15/2007 Allergy to substance Vicodin Low Active RXNORM 336811 07/15/2007 Allergy to substance Aspirin Low Active RXNORM 1191 07/11/2011 Allergy to substance Valium Low Active RXNORM 021222 Procedures / Labs No procedures listed. Immunizations [...] Respiration Heart Rate Blood P ressure IO2C 07/26/2020 95% 157.48cm 75.75kg 30.54kg/m2 37.22Cel 112/min 130 /68mm[Hg] Assessment * U07.1 COVID-19 * E11.9 Type 2 diabetes mellitus without complications Plan of Treatment * COVID-19* Prescriptions: [New Rx] predniSONE 20 mg oral tablet [take 2 tablets (40 mg) by oral route once daily for 5 days ], #10 (ten) tablets, Refills: 0 (zero) * Orders: 77325 - Established patient outpatient visit, 20-29 minutes * Type 2 diabetes mellitus without complications Referrals No referral reasons listed. Functional Status No Functional Status Listed Mental Status No Mental Status Listed Goals No Goals listed. Health Concerns No Health Concerns listed. Health Status Evaluations/Outcomes No Evaluations/Outcomes listed. Interventions No Interventions listed. Lab Results No lab results listed. Encounter Diagnosis * COVID-19 Patient diagnosed with COVID in ER recentlyHas been usingher nebulizer however s till feels she is having a hard time getting deep breath inNo further feverCough is non-productiveOn exam no signs of secondary bacterial infection Discussed op tions and will do a short course of prednisone to reduce inflammation and encour aged continued use of nebulizerWe did discussed the fact that the steroid would likely increase her sugars therefore she was given sample of novolog flex pen an d shown how to use the device advised if sugars were over 250 to give 5 units * Type 2 diabetes mellitus without complications
--- OUTSIDE RECORDS SUMMARY | 2020-09-08 12:40 | CCD | Clinical Summary ---
Author Author RecoveredPersonRecord_000001 Lucy MD Organization Unknown Address [address] [place] [address] Phone Unavailable Care Team Providers Care Television Agent Name Role Phone Stacie GRANADOS, Dr. Tarun Kong MD Unavailable [phone] Estephanie Elaine LPN Unavailable Unavailable Social History Code Name Start Date Stop Date Never Smoker 07/11/2011 Sex: Female Problems SNOMED Problem Status Date Discovered Last Modifie d Date Chronic rhinitis Active 06/26/2020 06/26/2020 Gastro-esophageal reflux disease without esophagitis A ctive 05/17/2009 06/26/2020 Nonalcoholic steatohepatitis (ARIAS) Active 06/2506/26/2020 Fatty (change of) liver, not elsewhere classified Reso lved 08/04/2017 06/25/2020 Obstructive sleep apnea, CPAP complaint Active 1 09/17/2014 06/26/2020 Mild intermittent asthma with (acute) exacerbation Act laura 07/15/2007 06/26/2020 Type 2 diabetes mellitus without complications Active 07/15/2007 06/26/2020 Familial hypercholesterolemia Active 06/14/2020 06/14/2020 Migraine with aura, not intractable, without sta tus migrainosus Active 09/04/2016 03/09/2020 Pure hypercholesterolemia, unspecified Resolved 03/09/2020 Low back pain Active 02/01/2020 02/01/2020 Body mass index (BMI) 32.0-32.9, adult Active 12/08/2019 Right upper quadrant pain Active 11/09/2018 215872816 Syncope Active 01/20/2018 01/20/2018 Liver steatosis, stage 2 Active 08/04/201702/2018 Body Mass Index 33.0-33.9, adult Active 07/07/20 17 07/07/2017 6878364 Migraine with aura, without mention of intractable migraine without mention of status migrainosus Active 09/04/2016 09/04/2016 50704420 Obstructive sleep apnea, CPAP compliant Active 1 09/17/2014 10/20/2017 92219144 Obstructive sleep apnea (adult) (pediatric) Active 07/17/2015 10/20/2017 Chronic maxillary sinusitis Active 06/13/2014 Nervousness Active 11/15/2013 Family history of colon cancer Active 04/19/2013 Vitamin B12 deficiency Active 11/02/2012 Fibrocystic disease of breasts Active 07/11/2011 Vitamin D deficiency Active 07/23/2010 25492727 Type II diabetes Active 07/15/2007 04/27/2018 760162638 Asthma Active 07/15/2007 04/27/2018 GERD Active 05/17/2009 04/27/2018 40589674 Hypercholesterolemia Active 11/21/2009 018 21476573 Meniere's disease, NOS Active 07/15/200704/27 Medications Brand Strength Dose/Route/Frequency RxNorm Code Date Started Date Discontinued Status Vitamin E 400 unit oral capsule Take 1 capsule(s) by mouth daily 709844 07/15/2007 Current MVI* pill 1 po qd 0 07/15/2007 Current Vitamin B6/Vitamin B12/Folic Acid/Calcium Carbonate 75mg/12m cg/1mg/200mg Tablet Take 1 tablet(s) by mouth daily 0 07/15/2007 Current alcohol swabs* swabs as directed 0 07/18/2009 C urrent Vitamin D3 1,000 unit (25 mcg) oral tablet 2 tabs po qd 542849 01/2011 Current meclizine 25 mg oral tablet 1 po TID prn 536263 08/23/2009 Current Vitamin B-12 100 mcg oral tablet Take 1 tablet(s) by mouth daily 30 9595 11/02/2012 Current Biotin* No Entry No Entry 0 05/28/2016 Current Endur-C with khurram hips No Entry No Entry 0 05/28/2016 Current ipratropium-albuteroL 0.5 mg-3 mg(2.5 mg base)/3 m L Inhalation Solution for Nebulization INHALE THE CONTENTS OF ONE VIAL VIA InkiveU LIZER EVERY FOUR HOURS NEEDED 6465599 07/15/2007 Current Xopenex 1.25 mg/3 mL Inhalation Solution for Neb ulization INHALE ONE VIAL VIA NEBULIZER THREE TIMES A DAY (EVERY SIX TO EIGHT HOURS APART) (JOANNA) 581750 07/15/2007 Current Noritate 1 % Topical Cream Apply thin film to affected area carey ly 689083 07/15/2007 Current triamcinolone acetonide 55 mcg Intranasal Aerosol, [place] 1 s pray(s) in each nostril daily 6716416 07/15/2007 Current EPINEPHrine 0.3 mg/0.3 mL injection Auto-Injector IN JECT DIRECTED NEEDED WITH NEXT BEE STING 7185627 10/20/2017 Current Mylanta Double Strength 400mg/400mg/40mg Chewable Tablet Chew 1 tablet(s) prn 0 07/15/2007 Current Proventil HFA 90 mcg/actuation Inhalation HFA Aerosol Inhaler Inhale 2 puff(s) by mouth q 4 to 6 hr 316392 07/15/2007 Current triamterene-hydrochlorothiazid 37.5-25 mg oral capsule TAKE ONE CAPSULE BY MOUTH DAILY 311959 07/15/2007 Current Clarinex 5 mg oral tablet Take 1 tablet(s) by mouth daily 705574 1 09/15/2006 Current Farxiga 10 mg oral tablet Take 1 tablet(s) by mouth daily 9088639 02/13/2016 Current OneTouch Ultra Blue Test Strip No Entry TEST THREE TIMES A DAY 0 10/21/2014 Current Crestor 10 mg oral tablet Take 1 tablet(s) by mouth daily 816889 07/15/2007 Current Advair Diskus 500-50 mcg/dose Inhalation Blister, With Inhalation Device Inhale 1 puff(s) bid 730691 07/15/2007 Current metFORMIN 500 mg oral tablet TAKE ONE TABLET THREE TIMES A DAY 8 37737 04/17/2010 Current Differin 0.1 % Topical Cream Apply thin film to a ffected area daily at nighttime 788318 05/17/2009 Current miscellaneous medical supply miscellaneous Miscellaneous for nebulizer machine daily 0 06/26/2020 Current omeprazole 40 mg oral capsule,delayed release (ente antelmo coated) take 1 capsule (40 mg) by oral route 1 times per day before a meal 2002082903/09/2020 Current Astelin 137 mcg (0.1 %) Intranasal Aerosol, [place] 1 spray qd 54012 76 07/15/2007 Current Singulair 10 mg oral tablet 1 po qd 214444 07/15/2007 Current Allergies Date Identified Type Cause Reaction Severity Status Code System Co de 07/15/2007 Allergy to substance Sulfas Low Active 07/15/2007 Allergy to substance Penicillins Low Active 07/15/2007 Allergy to substance Macrolides Low Active 07/15/2007 Allergy to substance Codeine Low Active RXNORM 2670 07/15/2007 Allergy to substance Ceclor Low Active RXNORM 344357 07/15/2007 Allergy to substance Hycomine Low Active 07/15/2007 Allergy to substance Doxycycline Low Active RXN ORM 3640 07/15/2007 Allergy to substance Vioxx Low Active RXNORM 650108 07/15/2007 Allergy to substance Vicodin Low Active RXNORM 238017 07/15/2007 Allergy to substance Aspirin Low Active RXNORM 1191 07/11/2011 Allergy to substance Valium Low Active RXNORM 897822 Procedures Code System Code Description Date Ordered Status CPT 96981 Ultrasound, abdominal, real time with image documentation; [...] Respiration Heart Rate Blood P ressure IO2C 06/26/2020 98% 157.48cm 80.29kg 32.38kg/m2 36.17Cel 100/min 118 /68mm[Hg] Assessment * E11.9 Type 2 diabetes mellitus without complications * J45.21 Mild intermittent asthma with (acute) exacerbation * G47.33 Obstructive sleep apnea, CPAP complaint * K75.81 Nonalcoholic steatohepatitis (ARIAS) * K21.9 Gastro-esophageal reflux disease without esophagitis * J31.0 Chronic rhinitis Plan of Treatment * Type 2 diabetes mellitus without complications* Orders: 70083 - Office/outpatient visit; established patient, level 4 77903 - Hemoglobin; glycosylated (A1C) * Mild intermittent asthma with (acute) exacerbation * Obstructive sleep apnea, CPAP complaint * Nonalcoholic steatohepatitis (ARIAS)* Orders: 25122 - Ultrasound, abdominal, real time with image documentation; complete * Gastro-esophageal reflux disease without esophagitis* Prescriptions: [Refilled] omeprazole 40 mg oral capsule,delayed release (enteric coated) [take 1 capsule (40 mg) by oral route 1 times per day before a meal], #90 (ninety) cap sules, Refills: 1 (one) * Chronic rhinitis* Prescriptions: [Refilled] Astelin 137 mcg (0.1 %) Intranasal Aerosol, [place] [1 spray qd], #1 (o ne) each, Refills: 3 (three) [Refilled] Singulair 10 mg oral tablet [1 po qd], #90 (ninety) tablets, Refills : 1 (one) Referrals No referral reasons listed. Functional Status No Functional Status Listed Mental Status No Mental Status Listed Goals No Goals listed. Health Concerns No Health Concerns listed. Health Status Evaluations/Outcomes No Evaluations/Outcomes listed. Interventions No Interventions listed. Lab Test & Results Date Performed Test Result Status 06/26/2020 CANCELLED TEST: Hemoglobin (Hgb) A1c 7.2 UNK 06/26/2020 HgbA1c: Hemoglobin (Hgb) A1c 7.2 K Test Code Code System Panel Description Date Ordered Note 88223 CPT Hemoglobin; glycosylated (A1C) 06/26/2020 Signed off by Dilan Quinones on 06-26-2020 Encounter Diagnosis * Type 2 diabetes mellitus without complications here for 3 month follow upco [facility] [place] Hga1c is 7.2 compared to 7.2 last ch karen on metformin, farxiga, so no change in meds annual labs are UTD 02/2020insura nce wanted to switch from nexium to omeprazole, we did this and it is well joselin ated, refill todayshe is CPAP complianthas ARIAS confirmed by biopsy 07/2017. [facility] trans jugularwas following with Dr Mills we will update ultrasound has fluid b ehind left ear drum, continue nasacort, astelin and singulair,follow up 3 month s Ms. Oneil presents with type 2 diabetes mellitus without complications. Speci fically, this is type 2, non-insulin requiring diabetes without complications. Compliance with treatment has been good; she takes her medication as directed an d follows up as directed. Patient's diabetes was first diagnosed 3 years ago. She denies experiencing any diabetes related symptoms. Depression screen is per formed and is negative. Tobacco screen: Non-smoker. Current meds include an or al hypoglycemic ( Glucophage ( 500mg bid ) and farxiga ) and lipid lowering agen t ( Crestor ). Not applicable She reports home blood glucose readings have been fairly good, with average fasting glucoses running in the 120-150 mg/dL range. Most recent lab results include HgbA1c: 7.2 (03/09/2020), 7.2 (06/26/2020), L DL: 89 (mg/dL) (03/09/2020), HDL: 42 (mg/dL) (03/09/2020), Triglycerides: 188 (mg/dL) (03/09/2020), Microalbumin/Creat Ratio: 13.0 (mg/g CR) (03/09/2020). Her most recent systolic blood pressure was < 130 mmHg. The last diastolic blood pressure was < 80 mmHg. In regard to preventative care, she performs foot self- exams daily and Her last ophthalmology exam was in 12/2017 and the results were normal by Dr. CHRISTINE. . * Mild intermittent asthma with (acute) exacerbation With regard to the mild intermittent asthma with (acute) exacerbation, she has a sthma which was first diagnosed in adulthood. The frequency of daytime attacks averages once per year. The frequency of nocturnal attacks averages once per ye ar. She is currently at baseline, and not having an exacerbation. Her current asthma medication includes albuterol MDI and nebulized albuterol, Singulair, an d Advair Diskus. . Current asthma symptoms include exercise limitation. She d enies orthopnea, sputum production or wheezing. She is NOT exposed to cigarette smoke and does not smoke. * Obstructive sleep apnea, CPAP complaint * Nonalcoholic steatohepatitis (ARIAS) * Gastro-esophageal reflux disease without esophagitis Gastro-esophageal reflux disease without esophagitis details; the location of th e discomfort is primarily substernal and epigastric. She describes the pain as burning. this has been a chronic, recurrent problem for several years. Symptom s are improved with a proton-pump inhibitor ( Prilosec ). * Chronic rhinitis Concerning chronic rhinitis, this has been a problem for the past several years. The pattern of symptoms is described as perennial, with virtually year-round s ymptoms. Her primary symptoms include chest congestion, bilateral ear stuffines s, facial pressure, nasal congestion, post-nasal drip and clear rhinorrhea. Sh e denies fever, headache or sneezing. She has already tried an antihistamine, n urban decongestant spray, and steroid nasal spray. Medical history is pertinent for allergic rhinitis, asthma, and frequent sinusitis.
--- OUTSIDE RECORDS SUMMARY | 2020-09-08 12:40 | CCD | Continuity of Care Document ---
Author Author Lucy PHAM M.D. Organization Unknown Address [address], [place] [address] Phone [phone] Problems Active Problems Provider Date Moderate persistent [...] with morning and evening meals Unknown Ipratropium [place]/Albuterol Sulfate 0.5-2.5(3)mg/3ML Solution inhale 3 milliliters by nebulization route as needed Unknown Farxiga 5mg Tablets take 1 tablet (5 mg) by oral route once daily in the morning Unknown Levalbuterol HCL 1.25mg/3ML Nebuli zer Take 3ml via nebulizer every 4 hours as needed Unknow n Advair Diskus 500-50mcg/Dose Aerosol Unknown Clarinex 5mg Tablets Take 1 tablet once daily Unknown Azelastine HCL (Nasal) 137mcg/[place] Solution 1 spray each nostril every day every night Unknown Nasacort Allergy 24HR 55mcg/Act Ae rosol administer 2 sprays per nostril once daily. Unkn own Medications Administered in Office Medication SIG Qnty Indications Ordering Provider Date Allergy Injection 2 Or More Injection Yobani Pham M.D. 06/02/2020 Allergy Injection 2 Or More Injection Yobani Pham M.D. 05/12/2020 Allergy Injection 2 Or More Injection GRACE Butler 04/19/2020 Allergy Injection 2 Or More Injection Yobani Pham M.D. 04/19/2020 Allergy Injection 2 Or More Injection Yobani Pham M.D. 03/30/2020 Allergy Injection 2 Or More Injection Yobani Pham M.D. 03/06/2020 Allergy Injection 2 Or More Injection Yobani Pham M.D. 02/15/2020 Allergy Injection 2 Or More Injection Yobani Pham M.D. 01/18/2020 Allergy Injection 2 Or More Injection Yobani Pham M.D. 12/23/2019 Allergy Injection 2 Or More Injection Yobani Pham M.D. 12/01/2019 Allergy Injection 2 Or More Injection Yobani Pham M.D. 11/10/2019 Allergy Injection 2 Or More Injection Yobani Pham M.D. 10/21/2019 Allergy Injection 2 Or More Injection Yobani Pham M.D. 09/30/2019 Allergy Injection 2 Or More Injection Yobani Pham M.D. 09/10/2019 Allergy Injection 2 Or More Injection Yobani Pham M.D. 08/19/2019 Allergy Injection 2 Or More Injection Yobani Pham M.D. 07/27/2019 Allergy Injection 2 Or More Injection Yobani Pham M.D. 07/06/2019 Allergy Injection 2 Or More Injection Yobani Pham M.D. 06/15/2019 Allergy Injection 2 Or More Injection Yobani Pham M.D. 05/26/2019 Allergy Injection 2 Or More Injection Yobani Pham M.D. 05/06/2019 Allergy Injection 2 Or More Injection KENROY Forrest 04/15/2019 Allergy Injection 2 Or More Injection Yobani Pham M.D. 04/15/2019 Allergy Injection 2 Or [...] Available Procedures Date Code Description Status 06/02/2020 15148 Allergy Injection 2 Or More Comp leted 05/18/2020 24081 Allergy Antigens Single Or Multi ple Completed 05/12/2020 25303 Allergy Injection 2 Or More Comp leted 04/19/2020 30072 Allergy Injection 2 Or More Comp leted 04/19/2020 79639 Allergy Injection 2 Or More Comp leted 03/30/2020 98931 Allergy Injection 2 Or More Comp leted 03/06/2020 85503 Allergy Injection 2 Or More Comp leted 02/15/2020 02751 Allergy Injection 2 Or More Comp leted 01/18/2020 84946 Allergy Injection 2 Or More Comp leted [...] lt) (pediatric) Assessments Date Code Description Provider 06/22/2020 J30.1 Allergic rhinitis due to pollen Yobani Pham M.D. 06/22/2020 J30.81 Allergic rhinitis due to animal (cat) hair and dander Yobani Pham M.D. 06/22/2020 J30.89 Allergic rhinitis due to dust mi [place] and mold spores. Yobani Pham M.D. 06/22/2020 J45.40 Moderate persistent asthma, unco mplicated Yobani Pham M.D. 06/22/2020 G47.33 Obstructive sleep apnea (adult) Yobani Chrostowski, M.D. Plan of Treatment Future Appointment(s):* 06/21/2021 1:30 pm - Yobani Pham M.D. [...]
--- OUTSIDE RECORDS SUMMARY | 2020-09-08 12:40 | CCD | Continuity of Care Document ---
Author Author Lucy PHAM M.D. Organization Unknown Address [address], [address], [place] [address] Phone [phone] Problems Active Problems Provider Date Moderate persistent [...] with morning and evening meals Unknown Ipratropium [place]/Albuterol Sulfate 0.5-2.5(3)mg/3ML Solution inhale 3 milliliters by nebulization route as needed Unknown Farxiga 5mg Tablets take 1 tablet (5 mg) by oral route once daily in the morning Unknown Levalbuterol HCL 1.25mg/3ML Nebuli zer Take 3ml via nebulizer every 4 hours as needed Unknow n Advair Diskus 500-50mcg/Dose Aerosol Unknown Clarinex 5mg Tablets Take 1 tablet once daily Unknown Azelastine HCL (Nasal) 137mcg/[place] Solution 1 spray each nostril every day [...] Information Available Procedures Date Code Description Status 06/23/2020 36638 Allergy Injection 2 Or More Comp leted 06/02/2020 44288 Allergy Injection 2 Or More Comp leted 05/18/2020 91096 Allergy Antigens Single Or Multi ple Completed 05/12/2020 45955 Allergy Injection 2 Or More Comp leted 04/19/2020 66082 Allergy Injection 2 Or More Comp leted 04/19/2020 75899 Allergy Injection 2 Or More Comp leted 03/30/2020 62141 Allergy Injection 2 Or More Comp leted 03/06/2020 72738 Allergy Injection 2 Or More Comp leted 02/15/2020 92415 Allergy Injection 2 Or More Comp leted 01/18/2020 01140 Allergy Injection 2 Or More Comp leted [...] lt) (pediatric) Assessments Date Code Description Provider 06/23/2020 J30.1 Allergic rhinitis due to pollen Yobani Pham M.D. 06/23/2020 J30.81 Allergic rhinitis due to animal (cat) (dog) hair and dander Yobani Pham M.D. 06/23/2020 J30.89 Other allergic rhinitis Yobani Pham M.D. Plan of Treatment Future Appointment(s):* 07/12/2020 9:30 am - Allergy Injection at Main Office [...]
--- OUTSIDE RECORDS SUMMARY | 2020-09-08 12:41 | CCD ---
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 Operator Name Role Phone Ishmael Bojorquez MD Unavailable Unavailable Ishmael Bojorquez MD Unavailable Unavailable Ishmael Bojorquez MD Unavailable Unavailable Ishmael Bojorquez MD Unavailable Unavailable Ishmael Bojorquez MD Unavailable Unavailable Ishmael Bojorquez MD Unavailable Unavailable Ishmael Bojorquez MD Unavailable Unavailable Ishmael Bojorquez MD Unavailable Unavailable Tarun Quinones MD Unavailable Unavailable Tarun Quinones MD Unavailable Unavailable Tarun Quinones MD Unavailable Unavailable Tarun Quinones MD Unavailable Unavailable Tarun Quinones MD Unavailable Unavailable Tarun Quinones MD Unavailable Unavailable Tarun Quinones MD Unavailable Unavailable Tarun Quinones MD Unavailable Unavailable Tarun Quinones MD Unavailable Unavailable Tarun Quinones MD Unavailable Unavailable Tarun Quinones MD Unavailable Unavailable Tarun Quinones MD Unavailable Unavailable Tarun Quinones MD Unavailable Unavailable Tarun Quinones MD Unavailable Unavailable Tarun Quinones MD Unavailable Unavailable Tarun Quinones MD Unavailable Unavailable Tarun Quinones MD Unavailable Unavailable Tarun Quinones MD Unavailable Unavailable Tarun Quinones MD Unavailable Unavailable Tarun Quinones MD Unavailable Unavailable Tarun Quinones MD Unavailable Unavailable Tarun Quinones MD Unavailable Unavailable Tarun Quinones MD Unavailable Unavailable Tarun Quinones MD Unavailable Unavailable Tarun Quinones MD Unavailable Unavailable Tarun Quinones MD Unavailable Unavailable Tarun Quniones MD Unavailable Unavailable Tarun Quinones MD Unavailable Unavailable Tarun Quinones MD Unavailable Unavailable Tarun Quinones MD Unavailable Unavailable Tarun Quinones MD Unavailable Unavailable Tarun Quinones MD Unavailable Unavailable Tarun Quinones MD Unavailable Unavailable Tarun Quinones MD Unavailable Unavailable Tarun Quinones MD Unavailable Unavailable Tarun Quinones MD Unavailable Unavailable Tarun Quinones MD Unavailable Unavailable Tarun Quinones MD Unavailable Unavailable Tarun Quinones MD Unavailable Unavailable Tarun Quinones MD Unavailable Unavailable Tarun Quinones MD Unavailable Unavailable Tarun Quinones MD Unavailable Unavailable Tarun Quinones MD Unavailable Unavailable Tarun Quinones MD Unavailable Unavailable Tarun Quinones MD Unavailable Unavailable Tarun Quinones MD Unavailable Unavailable Tarun Quinones MD Unavailable Unavailable Tarun Quinones MD Unavailable Unavailable Tarun Quinones MD Unavailable Unavailable Tarun Quinones MD Unavailable Unavailable Tarun Quinones MD Unavailable Unavailable Tarun Quinones MD Unavailable Unavailable Tarun Quinones MD Unavailable Unavailable Tarun Quinones MD Unavailable Unavailable Tarun Quinones MD Unavailable Unavailable Tarun Quinones MD Unavailable Unavailable Tarun Quinones MD Unavailable Unavailable Tarun Quinones MD Unavailable Unavailable Tarun Quinones MD Unavailable Unavailable Tarun Quinones MD Unavailable Unavailable Tarun Quinones MD Unavailable Unavailable Tarun Quinones MD Unavailable Unavailable Tarun Quinones MD Unavailable Unavailable Tarun Quinones MD Unavailable Unavailable Tarun Quinones MD Unavailable Unavailable Tarun Quinones MD Unavailable Unavailable Tarun Quinones MD Unavailable Unavailable Tarun Quinones MD Unavailable Unavailable Tarun Quinones MD Unavailable Unavailable Tarun Quinones MD Unavailable Unavailable Tarun Quinones MD Unavailable Unavailable Tarun Quinones MD Unavailable Unavailable Tarun Quinones MD Unavailable Unavailable Tarun Quinones MD Unavailable Unavailable Tarun Quinones MD Unavailable Unavailable Tarun Quinones MD Unavailable Unavailable Carmenza Mendez MD Unavailable Unavailable Carmenza Mendez MD Unavailable Unavailable YULIET, KINA PA Unavailable Unavailable YULIET, KINA PA Unavailable Unavailable YULIET, KINA PA Unavailable Unavailable YULIET, KINA PA Unavailable Unavailable YULIET, KINA PA Unavailable Unavailable YULIET, KINA PA Unavailable Unavailable YULIET, KINA PA Unavailable Unavailable YULIET, KINA PA Unavailable Unavailable YULIET, KINA PA Unavailable Unavailable YULIET, KINA PA Unavailable Unavailable CHROSTIRINEO PATEL MD Unavailable Unavailable CHROSTIRINEO PATEL MD Unavailable Unavailable CHROSTIRINEO PATEL MD Unavailable Unavailable CHROSTOWSKIIRINEO MD Unavailable Unavailable CHROSTIRINEO PATEL MD Unavailable Unavailable CHROSTOWSKIIRINEO MD Unavailable Unavailable CHROSTIRINEO PATEL MD Unavailable Unavailable CHROSTOWSKIIRINEO MD Unavailable Unavailable CHROSTOWSKIIRINEO MD Unavailable Unavailable CHROSTOWSKIIRINEO MD Unavailable Unavailable CHROSTOWSKIIRINEO MD Unavailable Unavailable CHROSTOWSKIIRINEO MD Unavailable Unavailable CHROSTOWSKIIRINEO MD Unavailable Unavailable CHROSTOWSKIIRINEO MD Unavailable Unavailable CHROSTOWSKIIRINEO MD Unavailable Unavailable CHROSTOWSKIIRINEO MD Unavailable Unavailable CHROSTOWSKIIRINEO MD Unavailable Unavailable CHROSTOWSKIIRINEO MD Unavailable Unavailable CHROSTOWSKIIRINEO MD Unavailable Unavailable CHROSTOWSKIIRINEO MD Unavailable Unavailable CHROSTOWSKIIRINEO MD Unavailable Unavailable CHROSTOWSKIIRINEO MD Unavailable Unavailable CHROSTOWSKIIRINEO MD Unavailable Unavailable CHROSTOWSKIIRINEO MD Unavailable Unavailable CHROSTOWSKIIRINEO MD Unavailable Unavailable CHROSTOWSKIIRINEO MD Unavailable Unavailable CHROSTOWSKIIRINEO MD Unavailable Unavailable CHROSTOWSKIIRINEO MD Unavailable Unavailable CHROSTOWSKIIRINEO MD Unavailable Unavailable CHROSTOWSKIFELICITAIRINEO MD Unavailable Unavailable CHROSTOWSKIIRINEO MD Unavailable Unavailable CHROSTOWSKIIRINEO MD Unavailable Unavailable CHROSTOWSKIIRINEO MD Unavailable Unavailable CHROSTOWSKIMERCEDESZ MD Unavailable Unavailable CHRIRIENO RAINEY MD Unavailable Unavailable CHRIRINEO RAINEY MD Unavailable Unavailable CHRIRINEO RAINEY MD Unavailable Unavailable CHROSTIRINEO PATEL MD Unavailable Unavailable CHRIRINEO RAINEY MD Unavailable Unavailable CHRIRINEO RAINEY MD Unavailable Unavailable Young, S Mauricio MS-DOUBLE REAMER OPERATOR Unavailable Unavailable Young, S Mauricio MS-DOUBLE REAMER OPERATOR Unavailable Unavailable Young, S Mauricio MS-DOUBLE REAMER OPERATOR Unavailable Unavailable Young, S Mauricio MS-DOUBLE REAMER OPERATOR Unavailable Unavailable Young, S Mauricio MS-DOUBLE REAMER OPERATOR Unavailable Unavailable Young, S Mauricio MS-DOUBLE REAMER OPERATOR Unavailable Unavailable Young, S Mauricio MS-DOUBLE REAMER OPERATOR Unavailable Unavailable Young, S Mauricio MS-DOUBLE REAMER OPERATOR Unavailable Unavailable Young, S Mauricio MS-DOUBLE REAMER OPERATOR Unavailable Unavailable Young, S Mauricio MS-DOUBLE REAMER OPERATOR Unavailable Unavailable Young, S Mauricio MS-DOUBLE REAMER OPERATOR Unavailable Unavailable Young, S Mauricio MS-DOUBLE REAMER OPERATOR Unavailable Unavailable Young, S Mauricio MS-DOUBLE REAMER OPERATOR Unavailable Unavailable Young, S Mauricio MS-DOUBLE REAMER OPERATOR Unavailable Unavailable Young, S Mauricio MS-DOUBLE REAMER OPERATOR Unavailable Unavailable Young, S Mauricio MS-DOUBLE REAMER OPERATOR Unavailable Unavailable Young, S Mauricio MS-DOUBLE REAMER OPERATOR Unavailable Unavailable Young, S Mauricio MS-DOUBLE REAMER OPERATOR Unavailable Unavailable Young, S Mauricio MS-DOUBLE REAMER OPERATOR Unavailable Unavailable Young, S Mauricio MS-DOUBLE REAMER OPERATOR Unavailable Unavailable Young, S Mauricio MS-DOUBLE REAMER OPERATOR Unavailable Unavailable Young, S Mauricio MS-DOUBLE REAMER OPERATOR Unavailable Unavailable NOSTROM, LYLE CONSTRUCTION LABORER Unavailable Unavailable NOSTROM, LYLE CONSTRUCTION LABORER Unavailable Unavailable NOSTROM, LYLE CONSTRUCTION LABORER Unavailable Unavailable NOSTROM, LYLE CONSTRUCTION LABORER Unavailable Unavailable NOSTROM, LYLE CONSTRUCTION LABORER Unavailable Unavailable NOSTROM, LYLE CONSTRUCTION LABORER Unavailable Unavailable NOSTROM, LYLE CONSTRUCTION LABORER Unavailable Unavailable NOSTROM, LYLE CONSTRUCTION LABORER Unavailable Unavailable NOSTROM, LYLE CONSTRUCTION LABORER Unavailable Unavailable NOSTROM, LYLE CONSTRUCTION LABORER Unavailable Unavailable NOSTROM, LYLE CONSTRUCTION LABORER Unavailable Unavailable NOSTROM, LYLE CONSTRUCTION LABORER Unavailable Unavailable NOSTROM, LYLE CONSTRUCTION LABORER Unavailable Unavailable ANDRE BOJORQUEZ MD Unavailable Unavailable O'ARON, MARTIN OD Unavailable Unavailable O'ARON, MARTIN OD Unavailable Unavailable O'ARON, MARTIN OD Unavailable Unavailable O'ARON, MARTIN OD Unavailable Unavailable O'ARON, MARTIN OD Unavailable Unavailable O'ARON, MARTIN OD Unavailable Unavailable Jaclyn Mills MD Unavailable Unavailable Jaclyn Mills MD Unavailable Unavailable Jaclyn Mills MD Unavailable Unavailable Jaclyn Mills MD Unavailable Unavailable Jaclyn Mills MD Unavailable Unavailable Jaclyn Mills MD Unavailable Unavailable Kadhim, Sharmainemad Unavailable Unavailable Rubenim, Sharmainemasharif GRANADOS Unavailable Unavailable RubenimSharmainemasharif GRANADOS Unavailable Unavailable RubenimSharmainemasharif GRANADOS Unavailable Unavailable KadhimSharmainemasharif GRANADOS Unavailable Unavailable Kadhim, Ahmad Unavailable Unavailable Kadhim, Sharmainemad Unavailable Unavailable Kadhim, Sharmainemad Unavailable Unavailable RubenimSharmainemasharif GRANADOS Unavailable Unavailable RubenimSharmainemasharif GRANADOS Unavailable Unavailable Sharmaine Millsmasharif GRANADOS Unavailable Unavailable MichdhimSharmainemasharif GRANADOS Unavailable Unavailable Rubenim, Sharmainemasharif GRANADOS Unavailable Unavailable Gene, Sharmainemad Unavailable Unavailable Jaclyn Mills MD Unavailable Unavailable Tarun Quinones MD Unavailable Unavailable Tarun Quinones MD Unavailable Unavailable Tarun Quinones MD Unavailable Unavailable Tarun Quinones MD Unavailable Unavailable Tarun Quinones MD Unavailable Unavailable Tarun Quinones MD Unavailable Unavailable Tarun Quinones MD Unavailable Unavailable Tarun Quinones MD Unavailable Unavailable Tarun Quinones MD Unavailable Unavailable Tarun Quinones MD Unavailable Unavailable Tarun Quinones MD Unavailable Unavailable Tarun Quinones MD Unavailable Unavailable Tarun Quinones MD Unavailable Unavailable Tarun Quinones MD Unavailable Unavailable Tarun Quinones MD Unavailable Unavailable Tarun Quinones MD Unavailable Unavailable Tarun Quinones MD Unavailable Unavailable Tarun Quinones MD Unavailable Unavailable Tarun Quinones MD Unavailable Unavailable Tarun Quinones MD Unavailable Unavailable Tarun Quinones MD Unavailable Unavailable Tarun Quinones MD Unavailable Unavailable Tarun Quinones MD Unavailable Unavailable Tarun Quinones MD Unavailable Unavailable Tarun Quinones MD Unavailable Unavailable Tarun Quinones MD Unavailable Unavailable Tarun Quinones MD Unavailable Unavailable Tarun Quinones MD Unavailable Unavailable Tarun Quinones MD Unavailable Unavailable Tarun Quinones MD Unavailable Unavailable Tarun Quinones MD Unavailable Unavailable Tarun Quinones MD Unavailable Unavailable Tarun Quinones MD Unavailable Unavailable Tarun Quinones MD Unavailable Unavailable Tarun Quinones MD Unavailable Unavailable Tarun Quinones MD Unavailable Unavailable Tarun Quinones MD Unavailable Unavailable Tarun Quinones MD Unavailable Unavailable Tarun Quinones MD Unavailable Unavailable Tarun Quinones MD Unavailable Unavailable Tarun Quinones MD Unavailable Unavailable Tarun Quinones MD Unavailable Unavailable Tarun Quinones MD Unavailable Unavailable Tarun Quinones MD Unavailable Unavailable Tarun Quinones MD Unavailable Unavailable Tarun Quinones MD Unavailable Unavailable Tarun Quinones MD Unavailable Unavailable Tarun Quinones MD Unavailable Unavailable Tarun Quinones MD Unavailable Unavailable Tarun Quinones MD Unavailable Unavailable Tarun Quinones MD Unavailable Unavailable Tarun Quinones MD Unavailable Unavailable Tarun Quinones MD Unavailable Unavailable Tarun Quinones MD Unavailable Unavailable Tarun Quinones MD Unavailable Unavailable Tarun Quinones MD Unavailable Unavailable Tarun Quinones MD Unavailable Unavailable Tarun Quinones MD Unavailable Unavailable Tarun Quinones MD Unavailable Unavailable Tarun Quinones MD Unavailable Unavailable Tarun Quinones MD Unavailable Unavailable Tarun Quinones MD Unavailable Unavailable Tarun Quinones MD Unavailable Unavailable Tarun Quinones MD Unavailable Unavailable Tarun Quinones MD Unavailable Unavailable Tarun Quinones MD Unavailable Unavailable Tarun Quinones MD Unavailable Unavailable Tarun Quinones MD Unavailable Unavailable Tarun Quinones MD Unavailable Unavailable Tarun Quinones MD Unavailable Unavailable Tarun Quinones MD Unavailable Unavailable Tarun Quinones MD Unavailable Unavailable Tarun Quinones MD Unavailable Unavailable Tarun Quinones MD Unavailable Unavailable Tarun Quinones MD Unavailable Unavailable Tarun Quinones MD Unavailable Unavailable Ruiz King MD Unavailable Unavailable Ruiz King MD Unavailable Unavailable Ruiz King MD Unavailable Unavailable Carmenza Mendez MD Unavailable Unavailable Michael, Kip Kelsey CONSTRUCTION LABORER Unavailable Unavailable Michael, L Kelsey CONSTRUCTION LABORER Unavailable Unavailable Michael, L Kelsey CONSTRUCTION LABORER Unavailable Unavailable Michael L Kelsey CONSTRUCTION LABORER Unavailable Unavailable Michael, L Kelsey CONSTRUCTION LABORER Unavailable Unavailable Michael, L Kelsey CONSTRUCTION LABORER Unavailable Unavailable Michael, L Kelsey CONSTRUCTION LABORER Unavailable Unavailable Michael, L Kelsey CONSTRUCTION LABORER Unavailable Unavailable Michael, L Kelsey CONSTRUCTION LABORER Unavailable Unavailable Michael, L Kelsey CONSTRUCTION LABORER Unavailable Unavailable Michael, L Kelsey CONSTRUCTION LABORER Unavailable Unavailable Michael, L Kelsey CONSTRUCTION LABORER Unavailable Unavailable Michael, L Kelsey CONSTRUCTION LABORER Unavailable Unavailable Michael, L Kelsey CONSTRUCTION LABORER Unavailable Unavailable Michael, L Kelsey CONSTRUCTION LABORER Unavailable Unavailable Michael, L Kelsey CONSTRUCTION LABORER Unavailable Unavailable Michael, L Kelsey CONSTRUCTION LABORER Unavailable Unavailable Michael, L Kelsey CONSTRUCTION LABORER Unavailable Unavailable Michael, L Kelsey CONSTRUCTION LABORER Unavailable Unavailable Michael, L Kelsey CONSTRUCTION LABORER Unavailable Unavailable Michael, L Kelsey CONSTRUCTION LABORER Unavailable Unavailable Michael, L Kelsey CONSTRUCTION LABORER Unavailable Unavailable Re-disclosure Warning The records that you are about to access may contain information from federally-assisted alcohol or drug abuse programs. If such information is present, then the following federally mandated warning applies: This information has been disclosed to you from records protected by federal confidentiality rules (42 CFR part 2). The federal rules prohibit you from making any further disclosure of this information unless further disclosure is expressly permitted by the written consent of the person to whom it pertains or as otherwise permitted by 42 CFR part 2. A general authorization for the release of medical or other information is NOT sufficient for this purpose. The Federal rules restrict any use of the information to criminally investigate or prosecute any alcohol or drug abuse patient.The records that you are about to access may contain highly sensitive health information, the redisclosure of which is protected by Article 27-F of the [facility] Public Health law. If you continue you may have access to information: Regarding HIV / AIDS; Provided by facilities licensed or operated by the [facility] Office of Mental Health; or Provided by the [facility] Office for People With Developmental Disabilities. If such information is present, then the following [facility] mandated warning applies: This information has been disclosed to you from confidential records which are protected by state law. State law prohibits you from making any further disclosure of this information without the specific written consent of the person to whom it pertains, or as otherwise permitted by law. Any unauthorized further disclosure in violation of state law may result in a fine or intermediate sentence or both. A general authorization for the release of medical or other information is NOT sufficient authorization for further disc losure. Allergies and Adverse Reactions Type Description Substance Reaction Status Data Source(s ) Drug allergy Drug allergy Sulfa (Sulfonamide Antibiotics) Unknown Ronan ction [facility] Drug allergy Drug allergy rofecoxib (From Vioxx) Unknown Reaction [facility] Drug allergy Drug allergy acetaminophen (From Vicodin) Unknown Reacti on [facility] Drug allergy Drug allergy hydrocodone (From Vicodin) Unknown Reaction [facility] Family History Family Member Name Family Member Gender Family Member Status Date o f Status Description Data Source(s) Unknown Male Problem [facility] ([facility] () Unknown Female Problem [facility] ([facility]) Unknown Female Problem [facility] ([facility]) Unknown Female Problem [facility] ([facility]) Unknown Female Problem [facility] ([facility]) Unknown Female Problem [facility] ([facility]) Unknown Female Problem [facility] ([facility]) Unknown Female Problem [facility] ([facility], ) Encounters Encounter Providers Location Date Indications Data Source(s ) Outpatient Attender: KINA EDWARDS CPSCAORT-CPSLADER 11:19:00 AM [facility] - 09/04/2020 11:20:00 AM EST [facility] Patient discharged. Outpatient Attender: Dilan Quinones MD ER-LAB-PNP 08/15/2020 12:58:00 PM [facility] Emergency Attender: Vaughn King MD CPSCAORT-ED 10:17:00 AM EST - 07/13/2020 01:45:00 PM EST COUGH, HEADACHE, FEVER [facility] COUGH, HEADACHE, FEVER Patient discharged. Outpatient Attender: Dilan Quinones MD CPSCAORT-IMACN 07/10/2020 08:02:00 AM EST - 07/10/2020 08:03:00 AM EST NONALCOHOLIC STEATOHEPATITIS [facility] NONALCOHOLIC STEATOHEPATITIS Patient discharged. Outpatient Attender: Dilan Quinones MD ER-LAB 07/07/2020 12:0 4:00 PM [facility] Emergency Attender: Andre Bojorquez MDAttender: ANDRE BOJORQUEZ MD ER-ER 07/05/2020 01:46:00 PM EST - 07/05/2020 06:35:00 PM EST [facility]ital Patient discharged. Outpatient Attender: IRINEO PHAM MD Main Office 06/22/2020 02:00:00 PM EST [facility] ([facility] Outpatient Attender: Dilan Quinones MD ER-LAB-PNP 03/09/2020 05:50:00 PM EDT [facility] Outpatient Attender: MARTIN ECHAVARRIA OD CPSCAORT-CPSLAOPT 02:10:00 PM EDT - 03/01/2020 02:11:00 PM EDT [facility] Patient discharged. Emergency Attender: LYLE BENNETT CONSTRUCTION LABORER Attender: Leta Mendez MDAttender: Leta Mendez MD CPSCAORT-ED 01/21/2020 12:26:00 PM EDT - 01/21/2020 03:06:00 PM EDT BACK PAIN [facility] BACK PAIN Patient discharged. [facility] [address] [place] [id number] 11/01/2019 12:00:00 AM EDT eCW1 ([facility]) Outpatient Attender: Kelsey Rodriguez NP Main Office 08/31/2019 10:00:00 AM EST [facility] ([facility] Outpatient Attender: Dilan Quinones MD ER-LAB-PNP 07/09/2019 12:55:00 PM [facility] Outpatient Attender: Dilan Quinones MD ER-LAB-PNP 03/10/2019 12:50:00 PM [facility] Outpatient Attender: Jaclyn Mills MD ER-LAB 12/31/2018 09:31:00 A M [facility] Outpatient Attender: Mauricio Ortega MS-DOUBLE REAMER OPERATOR 12/16/2018 01:10:00 PM [facility] Outpatient Attender: Dilan Quinones MD ER-LAB-PNP 04/27/2018 12:59:00 PM [facility] Medications Medication Brand Name Start Date Product Form Dose Route Admi nistrative Instructions Pharmacy Instructions Status Indications Reaction Description Data Source(s) Allergy Injection 2 Or More 08/01/2020 12:00:00 AM EST completed [facility] ([facility] Medication administered onsite Allergy Injection 2 Or More 07/12/2020 12:00:00 AM EST completed [facility] ([facility] Medication administered onsite Allergy Injection 2 Or More 06/23/2020 12:00:00 AM EST completed [facility] ([facility] Medication administered onsite Allergy Injection 2 Or More 06/02/2020 12:00:00 AM EST completed [facility] ([facility] Medication administered onsite Allergy Injection 2 Or More 05/12/2020 12:00:00 AM EDT completed [facility] ([facility] Medication administered onsite Allergy Injection 2 Or More 04/19/2020 12:00:00 AM EDT completed [facility] ([facility] Medication administered onsite Allergy Injection 2 Or More 04/19/2020 12:00:00 AM EDT completed [facility] ([facility] Medication administered onsite Allergy Injection 2 Or More 03/30/2020 12:00:00 AM EDT completed [facility] ([facility] Medication administered onsite Allergy Injection 2 Or More 03/06/2020 12:00:00 AM EDT completed [facility] ([facility] Medication administered onsite Allergy Injection 2 Or More 02/15/2020 12:00:00 AM EDT completed [facility] ([facility] Medication administered onsite 2 ML Sodium Hyaluronate 10 MG/ML Prefilled Syringe [Euflexxa ] Euflexxa 02/14/2020 12:00:00 AM EDT active [facility] ([facility]) Allergy Injection 2 Or More 01/18/2020 12:00:00 AM EDT completed [facility] ([facility] Medication administered onsite Allergy Injection 2 Or More 12/23/2019 12:00:00 AM EDT completed [facility] ([facility] Medication administered onsite Allergy Injection 2 Or More 12/01/2019 12:00:00 AM EDT completed [facility] ([facility] Medication administered onsite 3.5-10,000-1 mg/mL-unit/mL-% 11/10/2019 12:00:00 AM EDT drop s,suspension 10 INSTILL 10 DROPS INTO THE AFFECTED EAR THREE TIMES A DAY INSTILL 10 DROPS INTO THE AFFECTED EAR THREE TIMES A DAY SOLD: 11/10/2019 [facility] Allergy Injection 2 Or More 11/10/2019 12:00:00 AM EDT completed [facility] ([facility]) Medication administered onsite Allergy Injection 2 Or More 10/21/2019 12:00:00 AM EDT completed [facility] ([facility] Medication administered onsite Allergy Injection 2 Or More 09/30/2019 12:00:00 AM EDT completed [facility] ([facility] Medication administered onsite Allergy Injection 2 Or More 09/10/2019 12:00:00 AM EST completed [facility] ([facility] Medication administered onsite Allergy Injection 2 Or More 08/19/2019 12:00:00 AM EST completed [facility] ([facility] Medication administered onsite Allergy Injection 2 Or More 07/27/2019 12:00:00 AM EST completed [facility] ([facility] Medication administered onsite Insurance Providers Payer name Policy type / Coverage type Policy ID Covered libertarian ID Covered libertarian's relationship to watson Policy [place] Plan Information MEDICARE [id number] SP [id number] [place] [phone] [id number] [place] [id number] Other [id number] MEDICARE [id number] Other [id number] BLUE CROSS [id number] HUS [id number] MCRB [id number] HUS [id number] MEDICARE [id number] S [id number] [place] [id number] Other [id number] MEDICARE [id number] Other [id number] A BLUE CROSS [id number] HUS [id number] BLUE CROSS [id number] HUS [id number] MEDICARE [id number] S [id number] [place] [id number] Self [id number] [employer]/Multipl[employer] Medigap Part B [id number] Family Depen dent [id number] [facility] [facility] Medigap Part B [id number] Self [id number] BS [place] Medigap Part B [id number] Family Depend ent [id number] [place] Primary [id number] Self [id number] [place] Primary [id number] Self [id number] [place] Medicare Primary [id number] Self [id number] [place] Primary [id number] Self [id number] [place] [id number] Other [id number] [facility] [id number] HUS [id number] [place] 302/307 [id number] HU2 [id number] MEDICARE [id number] SP [id number] [place] 302/307 [id number] HU2 [id number] MEDICARE [id number] SP [id number] ANSI-Medicare Part B [id number] ANSI-Commercial [id number] [facility] Plan Administra .[id number] Commercial Insurance Co. .[id number] BCBS .[id number] Blue Cross/Blue Shield .[id number] Medicare .[id number] Medicare Part B .[id number] MEDICARE [id number] SP [id number] A [place] Primary [id number] Self [id number] Medicare [facility] Medicare Primary [id number] Self [id number] Medicare [facility] Medicare Primary [id number] Self [id number] [place] Medicare Primary [id number] Self [id number] Medicare [facility] Medicare Primary [id number] Self [id number] Medicare [facility] Medicare Primary [id number] Self [id number] EXCELLUS BCBS B [id number] S [id number] MEDICARE C [id number] S [id number] A EXCELLUS BCBS B [id number] P [id number] BC BS [place] FEDERAL B [id number] P [id number] Medical Evaluation Specialit Medigap Part B [id number] Self [id number] [facility] Commercial [id number] Family Depend ent [id number] Medicare - [place] Medicare Primary [id number] Self [id number] [place] Commercial [id number] Family Depende nt [id number] [facility] [facility] HEATHCARE [id number] HU2 [id number] [place] Medigap Part B [id number] Self [id number] [place] Medicare Primary [id number] Self [id number] [facility] [place] Healthcare Health Maintenance Organization (HMO) [id number] Family Dependent [id number] [place] Medigap Part B [id number] Self [id number] [place] Medigap Part B [id number] Self [id number] [place] Medigap Part B [id number] Self [id number] [place] Medigap Part B [id number] Self [id number] [place] Medigap Part B [id number] Self [id number] EXCELLUS BCBS FEDERAL [id number] HU2 [id number] [employer] Medigap Part B Family Depen dent [place] Medigap Part B Self [facility] [place] [employer] Self [facility] O [id number] P [id number] Medicare [place]/N[place] Medicare Primary Self [facility] [place] Healthcare Health Maintenance Organization (HMO) Family Dependent [facility] [id number] [facility] [id number] [employer]IC W [id number] Empl [id number] [place] W [id number] [facility] [id number] [facility] P [id number] S [id number] A Problems, Conditions, and Diagnoses Code Display Name Description Problem Type Effective Dates Data Source(s) 09784573 Obstructive sleep apnea syndrome Obstructive sle ep apnea syndrome Problem 06/22/2020 12:00:00 AM EST [facility] ([facility] R10.9 Unspecified abdominal pain UNSPECIFIED ABDOMINAL PAIN Diagnosis 08/15/2020 12:58:00 PM [facility] R53.83 Other fatigue OTHER FATIGUE Diagnosis 07/07/2020 12:04:00 PM [facility] J45.909 Unspecified asthma, uncomplicated UNSPECIFIED THMA, UNCOMPLICATED Diagnosis 07/05/2020 01:46:00 PM [facility] R07.89 Other chest pain OTHER CHEST PAIN Diagnosis 07/05/2020 01 :46:00 PM [facility] R07.9 Chest pain, unspecified CHEST PAIN, UNSPECIFIED Diagno sis 07/05/2020 01:46:00 PM [facility] E78.00 PURE HYPERCHOLESTEROLEMIA, UNSPECIFIED P URE HYPERCHOLESTEROLEMIA, UNSPECIFIED Diagnosis 03/09/2020 05:50:00 PM EDT [facility] E11.9 Type 2 diabetes mellitus without complic ations TYPE 2 DIABETES MELLITUS WITHOUT COMPLIC Diagnosis 03/09/2020 05:50:00 PM EDT [facility] K21.9 Gastro-esophageal reflux disease without esophagitis GASTRO-ESOPHAGEAL REFLUX DISEASE WITHOUT ESOPHAGITIS Diagnosis 03/09/2020 05:50:00 PM ED [facility] E11.9 Type 2 diabetes mellitus without complic ations TYPE 2 DIABETES MELLITUS WITHOUT COMPLICATIONS Diagnosis 03/01/2020 02:10:00 PM EDT [facility] H52.13 Myopia, bilateral MYOPIA, BILATERAL Diagnosis 03/01/2020 02:10:00 PM EDT [facility] H16.223 Keratoconjunctivitis sicca, not specifie d as Sjogren's, bilateral KERATOCONJUNCT SICCA, NOT SPECIFIED SJOGREN'S, BILATERAL Diagnosis 03/01/2020 02:10:00 PM EDT [facility] H25.13 Age-related nuclear cataract, bilateral AGE-RELATED NUCLEAR CATARACT, BILATERAL Diagnosis 03/01/2020 02:10:00 PM EDT [facility] Surgeries/Procedures Procedure Description Date Indications Data Source(s) PROF BURNS ALLG IMMNTX X W/PRV ALLGIC XTRCS NJXS 2020 12:00:00 AM EST [facility] ([facility]) [facility] ALLG IMMNTX X W/PRV ALLGIC XTRCS NJXS 2019 12:00:00 AM EST [facility] ([facility]) [facility] ALLG IMMNTX X W/PRV ALLGIC XTRCS NJXS 2019 12:00:00 AM EST [facility] ([facility] ALL IMMNTX X W/PRV ALLGIC XTRCS NJXS 2019 12:00:00 AM EST [facility] ([facility]) PREPJ& ALLERGEN IMMUNOTHERAPY 1/DIGITAL PRINTER ANTIGEN 05/18/2020 12:00:00 AM EDT [facility] ([facility]) [facility] ALLG IMMNTX X W/PRV ALLGIC XTRCS NJXS 2019 12:00:00 AM EDT [facility] ([facility] ALL IMMNTX X W/PRV ALLGIC XTRCS NJXS 2019 12:00:00 AM EDT [facility] ([facility]) [facility] ALLG IMMNTX X W/PRV ALLGIC XTRCS NJXS 2019 12:00:00 AM EDT [facility] ([facility] ALLG IMMNTX X W/PRV ALLGIC XTRCS NJXS 2019 12:00:00 AM EDT [facility] ([facility] ALLG IMMNTX X W/PRV ALLGIC XTRCS NJXS 2019 12:00:00 AM EDT [facility] ([facility]) ARTHROCENTESIS ASPIR&/INJECTION MAJOR JT/BURSA 020 12:00:[facility] clinic visit for assessment and ma nagement of a patient Hospital Outpatient Clinic Visit 03/01/2020 12:00:00 AM EDT [facility] ARTHROCENTESIS ASPIR&/INJECTION MAJOR JT/BURSA 12:00:00 AM EDT [facility] ([facility]) PROF PEREZ ALLG IMMNTX X W/PRV ALLGIC XTRCS NJXS 2019 12:00:00 AM EDT [facility] ([facility]) ARTHROCENTESIS ASPIR&/INJECTION MAJOR JT/BURSA 12:00:00 AM EDT [facility] ([facility]) ARTHROCENTESIS ASPIR&/INJECTION MAJOR JT/BURSA 12:00:00 AM EDT [facility] ([facility]) PROF ANA HILLIARDG IMMNTX X W/PRV ALLGIC XTRCS NJXS 2019 12:00:00 AM EDT [facility] ([facility]) ARTHROCENTESIS ASPIR&/INJECTION MAJOR JT/BURSA 12:00:00 AM EDT [facility] ([facility]) ARTHROCENTESIS ASPIR&/INJECTION MAJOR JT/BURSA 020 12:00:00 AM EDT [facility] ([facility]) RADIOLOGIC EXAMINATION KNEE 3 VIEWS 01/03/2020 12:00:0 0 AM EDT [facility] ([facility]) RADIOLOGIC EXAMINATION KNEE 3 VIEWS 01/03/2020 12:00:0 0 AM EDT [facility] ([facility]) PROF ANA HILLIARDG IMMNTX X W/PRV ALLGIC XTRCS NJXS 2019 12:00:00 AM EDT [facility] ([facility] PROF PEREZ ALLG IMMNTX X W/PRV ALLGIC XTRCS NJXS 2019 12:00:00 AM EDT [facility] ([facility]) PREPJ& ALLERGEN IMMUNOTHERAPY 1/DIGITAL PRINTER ANTIGEN 12/01/2019 12:00:00 AM EDT [facility] ([facility] PROF [facility] ALLG IMMNTX X W/PRV ALLGIC XTRCS NJXS 2019 12:00:00 AM EDT [facility] ([facility] PROF [facility] ALLG IMMNTX X W/PRV ALLGIC XTRCS NJXS 2019 12:00:00 AM EDT [facility] ([facility] PROF [facility] ALLG IMMNTX X W/PRV ALLGIC XTRCS NJXS 2019 12:00:00 AM EDT [facility] ([facility] PROF [facility] ALLG IMMNTX X W/PRV ALLGIC XTRCS NJXS 2019 12:00:00 AM EST [facility] ([facility] PROF [facility] ALLG IMMNTX X W/PRV ALLGIC XTRCS NJXS 2019 12:00:00 AM EST [facility] ([facility]) PROF [facility] ALLG IMMNTX X W/PRV ALLGIC XTRCS NJXS 2019 12:00:00 AM EST [facility] ([facility]) Results ID Date Data Source [id number] 08/17/2020 11:22:00 AM EST [facility] Name Value Range Interpretation Code Description Data Arlin rce(s) Supporting Document(s) ORGANISM [facility] COLONY COUNT N [facility] ID Date Data Source [id number] 08/15/2020 01:20:00 PM EST [facility] Name Value Range Interpretation Code Description Data Arlin rce(s) Supporting Document(s) URINE COLOR Yellow N [facility] UAPR Clear N [facility] UGLU 3+ NEGATIVE N [facility] URINE BILIRUBIN Negative NEGATIVE N [facility] UKET Negative NEGATIVE [facility] USG 1.038 1.010-1.025 H [facility] UBLO Negative NEGATIVE [facility] UpH 5.0 5.0-8.0 N [facility] UPRO Negative Negative N [facility] UUB 0.2 mg/dL 0.2-1.0 N [facility] UNIT Negative Negative N [facility] ULEU Negative Negative N [facility] ID Date Data Source [id number] 07/13/2020 10:17:00 AM EST [facility] Name: YAIR MUSTAFA [facility] Rec #: [id number] : 1955 Age/Sex: 65F Date of Service: 07/13/20 DISPOSITION SUMMARY Discharge Summary [facility] Name:Yair Mustafa Emergency Department Age:65 yrs Sex:Female :1955 Arrival:07/13/2020 10:17 Departure Date07/13/2020 Departure Time13:45 Private MD:Dilan Quinones MD Outcome: Discharge Location: Home/Self Care Condition: Good Chief Complaint: Cough, Headache, Fever Diagnosis: - covid 19 Prescriptions: Follow up: Dilan Quinones MD Custom Notes: <span>As we have discussed I would like you to return if any sign of increased</span><span> <span>worsened breathing.</span></span><span>
</span><span>
</span><s dowling><span>You may expect some</span><span> increased temperatures</span><span> please use Tylenol or ibuprofen as needed.</span><span> You also may use the ibuprofen for the chest discom fort.</span></span><span>
</span><span><span>We also have discussed</span><span> there currently is a</span><span> trial study going on with</span><span> monoclonal antibodies</span><span>. I have asked the research department to phone you directly to discuss</span><span> this more thoroughly with you</span><span> as it may help improve</span><span> your symptoms with your COVID-19</span></span> Attending Physician: Vaughn King MD Private MD: Dilan Quinones MD Mid Level Provider: David Bernardo PA-C Followup Physician: Dilan Quinones MD Orders: Cbc With Auto Differential, COMMET, C-Reactive Protein,Wide Range, Troponin I, D-Dimer, Respiratory Panel w/COVID-19, Emergency Room EKG Order - Use EKG Work-Up /Quick Select, Cardiology EKG Interpretation - Choose Reason for Test, CXR Portable - Xray, ketorolac, CT Chest for PE with contrast (choose symptom) Discharge Instruction: Discharge Summary Sheet, COVID- 19, Medication Reconciliation, Fax Visit Summary for Dilan Quinones MD Name Value Range Interpretation Code Description Data Arlin rce(s) Supporting Document(s) ID Date Data Source [id number] 07/13/2020 10:17:00 AM [facility] Name: YAIR MUSTAFA [facility] Rec #: [id number] : 1955 Age/Sex: 65F Date of Service: 07/13/20 PHYSICIAN CHART Physician Documentation [facility] Name: Yair Mustafa Age: 65 yrs Sex: Female : 1955 Arrival Date: 07/13/2020 Time: 10:17 Bed EDRU-1 Private MD: Dilan Quinones E ED Physician Vaughn King Disposition: 07/13 13:59 Attestation: I discussed the plan of care with [facility] Provider and agree with what they have documented. HPI: 11:45 This 65 yrs old Female presents to ER via Walk-In mk with complaints of Cough, Headache, Fever. 11:45 The patient or guardian reports cough. Onset: The mk symptoms/episode began/occurred acutely. Severity of symptoms: At their worst the symptoms were moderate, in the emergency department the symptoms are unchanged. This is a 65-year-old asthmatic patient who comes into the emergency department today with chest discomfort, headache and harsh cough. She states that she feels that she has had a low-grade fever. Patient was seen at [facility] within the last week and diagnosed with costochondritis. She states that she did not have Covid testing at that time. She did have contact with her granddaughter who had what patient states was brief contact with a Covid positive patient. Child did not display symptoms.. Patient states that the discomfort in the chest is worse when she is coughing. Historical: - Allergies: Amoxicillin; Aspirin; Ceclor; Azithromycin; Doxycycline; Hycomine; Codeine; Vioxx; Vicodin; PENICILLINS; Erythromycin; SULFA (SULFONAMIDES); Valium; Versed; PROPOFOL; - Home Meds: 1. Xopenex 1.25 mg/3 mL Inhl nebu 3 mL as needed 2. Advair Diskus 500-50 mcg/dose Inhl dsdv 1 puff 2 times per day 3. DuoNeb 0.5 mg-3 mg(2.5 mg base)/3 mL Inhl nebu 3 mL as needed 4. Clarinex 5 mg Oral tab 1 tab once daily 5. Nexium 40 mg Oral cpDR 1 cap once daily 6. Dyazide 37.5-25 mg Oral cap 1 cap once daily 7. Astelin N/S - 1 spray each nostril daily 8. Nasacort 55 mcg Nasal spra 1 1 or 2 sprays 9. Singulair 10 mg Oral tab 1 tab once daily 10. Mylanta Double-Strength 400-400-40 mg/5 mL Oral susp 10 mL as needed 11. Epi-Pen 12. Crestor 10 mg Oral tab 1 tab once daily 13. biotin 2,500 mcg Oral tab 14. Noritate Metronidazole cream 1% applied daily 15. metformin 500 mg Oral tab 1 tab three times a day 16. Farxiga 5 mg Oral tab 1 tab once daily - PMHx: ASTHMA; Diabetes - NIDDM; Hypercholesterolemia; vertigo; - Med Reconciliation:: Green Alert: The patient's med list is complete to the best of the nurse's/provider's kno wledge. Medications reviewed, completed by nurse using patient's med list. - Immunization history: All immunizations are up to date. Flu vaccine is up to date. - Advance directive: There is no existing advanced directive. Information offered. - Family History:: mother has a history of cardiac disorder, is . Father has a history of cancer, is . - Social History: Smoking status (Tobacco): Patient states he/she has never smoked tobacco. Preferred Language: [place]anian. ROS: 11:47 Constitutional: Positive for fever, Negative for chills. mk Eyes: Negative for acute changes. Cardiovascular: Negative for acute changes. Respiratory: Positive for cough, shortness of breath. Neuro: Negative for acute changes. All other systems are negative. Exam: 11:47 Constitutional: The patient appears to have no acute mk distress, appears alert. 11:47 Constitutional: The patient Answers questions in complete sentences 11:47 Eyes: Pupils: equal, round, and reactive to light and accomodation, Extraocular movements: intact throughout. 11:47 Chest/axilla: Palpation: tenderness, that is moderate, that totally reproduces the patient's complaints, Over the sternum. 11:47 Cardiovascular: Exam negative for abnormalities. 11:47 Respiratory: the patient does not display signs of respiratory distress, Respirations: no acute changes, is not noted, Breath sounds: no acute changes, throughout. 11:47 Neuro: Orientation: to person, place & time. Vital Signs: 10:33 BP 141 / 82; Pulse 108; Resp 20; Temp 99.7(TE); Pulse Ox md1 95% on R/A; Weight 78.93 kg; Height 5 ft. 2 in. (157.48 cm); Pain 5/10; 11:33 Pulse 102; Resp 20; Temp 99.8(O); Pulse Ox 94% on R/A; rc5 12:30 BP 138 / 68; Pulse 111; Resp 20; Pulse Ox 97% on R/A; rc5 13:20 BP 128 / 66; Pulse 113; Resp 20; Temp 99.3(O); Pulse Ox 95% rc5 on R/A; 10:33 Body Mass Index 31.82 (78.93 kg, 157.48 cm) md1 MDM: 10:36 Patient medically screened. 13:26 Case presented to: Dr. Vaughn King. Data reviewed: vital signs, nurses notes. Counseling: I had a detailed discussion with the patient and/or guardian regarding: lab results, diagnosis, the need for outpatient follow up, to return to the emergency department if symptoms worsen or persist or if there are any questions or concerns that arise at home. ED course: This is a patient with known asthma. She came into the emergency department due to discomfort in the chest wall. She has been having this chest discomfort for just less than a week. Today she began having a slight fever and has had a harsh cough and congestion. She showed no signs of respiratory distress. He is able to speak in full sentence. Unfortunately she is positive for COVID-19. CT scan of the chest was negative for PE. . 07/13 11:09 Order name: Cbc With Auto Differential; Complete Time: 11:49mk 07/13 11:09 Order name: COMMET; Complete Time: 12:18 07/13 11:09 Order name: C- Reactive Protein,Wide Range; Complete Time: 12:18 07/13 11:09 Order name: Troponin I; Complete Time: 12:18 07/13 11:09 Order name: D-Dimer; Complete Time: 12:18 07/13 11:21 Order name: Respiratory Panel w/COVID-19; Complete Time: EDMS 12:27 07/13 11:09 Order name: Emergency Room EKG Order - Use EKG Work-Up /Quick Select; Complete Time: 11:17 07/13 11:09 Order name: Cardiology EKG Interpretation - Choose Reason mk for Test 07/13 11:09 Order name: CXR Portable - Xray 07/13 11:52 Order name: CT Chest for PE with contrast (choose symptom) Dispensed Medications: 11:33 Drug: ketorolac 30 mg [ketorolac 30 mg/mL (1 mL) injection rc5 solution (1 mL)] Route: IVP; Site: left antecubital; 12:00 Follow up: Response: Pain is decreased rc5 Disposition Summary: 07/13/20 13:35 Discharge Ordered Location: Home/Self Care Condition: Good Diagnosis - covid 19 Followup: mk - With: Dilan Quinones MD - [facility] n: - Reason: Recheck today's complaints, Continuance of care, If symptoms persist Discharge Instructions: - Discharge Summary Sheet - COVID-19 Forms: - Medication Reconciliation Signatures: Dispatcher [employer] EDDavid Bonilla PA-C PA-C mk MacKinnon, Justin, MD MD jam2 David Cramer RN RN md1 Kimi Jaramillo RN RN rc5 Name Value Range Interpretation Code Description Data Arlin rce(s) Supporting Document(s) ID Date Data Source [id number] 07/13/2020 10:17:00 AM [facility] Name: YAIR MUSTAFA [facility] Rec #: [id number] : 1955 Age/Sex: 65F Date of Service: 07/13/20 NURSE CHART Nurse's Notes [facility] Name: Yair Mustafa Age: 65 yrs Sex: Female : 1955 Arrival Date: 07/13/2020 Time: 10:[address] MD: Dilan Quinones E Diagnosis: covid 19 Presentation: 07/13 10:29 Transition of care: patient was not received from another md1 setting of care. Presenting complaint: Patient states - that she has a headache, a non productive cough and states a fever of 100.3 last night. States that granddaughter is on quarantine for covid exposure. Have you travelled in the last 30 days? No. Have you had contact with an individual with a confirmed diagnosis of Ebola or COVID-19? Yes, COVID-19: fever OR Cough OR SOB present. 10:29 Acuity: Urgent - 3 md1 10:29 Method Of Arrival: Walk-In md1 Triage Assessment: 10:31 Headache History: The patient has had previous headaches md1 and this one is similar to previous episodes. SEPSIS SCREEN: A Confirmed or Suspected Infection is Unknown, SIRS or Sepsis criteria is not present. Suicide Screening: Have you had thoughts of harming yourself or others? No. The patient appears to have some mild discomfort, The patient is cooperative. Patient states the pain is currently a 4 / 10 The patient reports his/her pain at its wor st was 10 out of 10 on a 1-10 pain scale. The patient complains of pain in head and chest. The patient states the pain began 2days ago. The quality of the pain is described as Sore. Neuro: Level of Consciousness is awake, alert, obeys commands, Patient is oriented to person, place and time. Patient reports headache, in entire. Respiratory: Airway is patent. Respiratory effort is even, Respiratory pattern is regular, Patient reports cough that is non-productive. GI: No deficits noted. Derm: No deficits noted. Historical: - Allergies: Amoxicillin; Aspirin; Ceclor; Azithromycin; Doxycycline; Hycomine; Codeine; Vioxx; Vicodin; PENICILLINS; Erythromycin; SULFA (SULFONAMIDES); Valium; Versed; PROPOFOL; - Home Meds: 1. Xopenex 1.25 mg/3 mL Inhl nebu 3 mL as needed 2. Advair Diskus 500-50 mcg/dose Inhl dsdv 1 puff 2 times per day 3. DuoNeb 0.5 mg-3 mg(2.5 mg base)/3 mL Inhl nebu 3 mL as needed 4. Clarinex 5 mg Oral tab 1 tab once daily 5. Nexium 40 mg Oral cpDR 1 cap once daily 6. Dyazide 37.5-25 mg Oral cap 1 cap once daily 7. Astelin N/S - 1 spray each nostril daily 8. Nasacort 55 mcg Nasal spra 1 1 or 2 sprays 9. Singulair 10 mg Oral tab 1 tab once daily 10. Mylanta Double-Strength 400-400-40 mg/5 mL Oral susp 10 mL as needed 11. Epi- Pen 12. Crestor 10 mg Oral tab 1 tab once daily 13. biotin 2,500 mcg Oral tab 14. Noritate Metronidazole cream 1% applied daily 15. metformin 500 mg Oral tab 1 tab three times a day 16. Farxiga 5 mg Oral tab 1 tab once daily - PMHx: ASTHMA; Diabetes - NIDDM; Hypercholesterolemia; vertigo; - Med Reconciliation:: Green Alert: The patient's med list is complete to the best of the nurse's/provider's knowledge. Medications reviewed, completed by nurse using patient's med list. - Immunization history: All immunizations are up to date. Flu vaccine is up to date. - Advance directive: There is no existing advanced directive. Information offered. - Family History:: mother has a history of cardiac disorder, is . Father has a history of cancer, is . - Social History: Smoking status (Tobacco): Patient states he/she has never smoked tobacco. Pre ferred Language: Tanzanian. Screenin:16 AUDIT 1. How often do you have a drink containing alcohol? rc5 Never (0 points). Drug Abuse Screening Test: 1. Have you used drugs other than those required for medical reasons? No (0 points), screen is complete, no risk. Abuse screen: Denies threats or abuse. Denies injuries from another. Nutritional screening: No deficits noted. Patient has no identifiable fall risk (Gordon Scale: 0 points). Assessment: 10:50 Patient states the pain is currently a 5 / 10 The patient rc5 complains of pain in head. The patient states the pain began 2days ago. The quality of the pain is described as aching, The pain is described as continuous. The patient appears to have some mild discomfort, The patient is cooperative, The patient reports that he/she has been feeling like he/she has had a fever, for 1-2 days, feeling ill, for 1-2 days. Respiratory: Airway is patent. Respiratory effort is even, unlabored, Respiratory pattern is regular, symmetrical, Breath sounds are clear bilaterally. Patient reports shortness of breath on exertion since 1 to 2 days cough that is dry, hacking, persistent. Vital Signs: 10:33 BP 141 / 82; Pulse 108; Resp 20; Temp 99.7(TE); Pulse Ox md1 95% on R/A; Weight 78.93 kg; Height 5 ft. 2 in. (157.48 cm); Pain 5/10; 11:33 Pulse 102; Resp 20; Temp 99.8(O); Pulse Ox 94% on R/A; rc5 12:30 BP 138 / 68; Pulse 111; Resp 20; Pulse Ox 97% on R/A; rc5 13:20 BP 128 / 66; Pulse 113; Resp 20; Temp 99.3(O); Pulse Ox 95% rc5 on R/A; 10:33 Body Mass Index 31.82 (78.93 kg, 157.48 cm) md1 ED Course: 10:18 Patient arrived in ED. mlr 10:29 Dilan Quinones MD is Private Physician. md1 10:31 Triage completed. md1 10:33 Arm band placed on left wrist. Patient has correct armband md1 on for positive identification. 10:34 Kimi Jaramillo RN is Primary Nurse. rc5 10:35 David Bernardo PA-C is PHCP. mk 10:35 Vaughn King MD is Attending Physician. mk 10:50 Patient has correct armband on for positive identification, rc5 Placed in gown, Bed in low position, Call light in reach, Side rails up X 1. Pulse on is on. NIBP on. 11:00 Labs drawn by ED staff. was sent per order to lab. First rc5 set of blood cultures drawn Second set of blood cultures drawn by vt An EKG was obtained and reviewed by David Bernardo PA-C A swab for the respiratory panel was collected by Kimi Jaramillo RN COVID-19 specimens collected by Kimi Jaramillo RN. Inserted saline lock: 20 gauge in left antecub ital area. 11:17 Radiology: a portable X-ray was completed at 11:17. rc5 11:17 CXR Portable - Xray Sent. rc5 11:17 Cardiology EKG Interpretation - Choose Reason for Test Sent.rc5 12:20 Radiology: The patient went to get his/her CT at 12:20. rc5 12:46 CT Chest for PE with contrast (choose symptom) Sent. rc5 13:20 No procedures ordered. Discontinued lock intact, bleeding rc5 controlled, pressure dressing applied, No redness/swelling at sit e. 13:34 Dilan Quinones MD is Referral Physician. luis Administered Medications: 11:33 Drug: ketorolac 30 mg [ketorolac 30 mg/mL (1 mL) injection rc5 solution (1 mL)] Route: IVP; Site: left antecubital; 12:00 Follow up: Response: Pain is decreased rc5 Outcome: 13:21 Patient verbalized understanding of disposition rc5 instructions. Patient has no functional deficits. 13:21 Patient discharged to home ambulatory. 13:21 Condition: stable 13:21 Discharge instructions given to patient, Patient was instructed on discharge instructions, follow up and referral plans, medication usage, self quarantine The patient demonstrated understanding of instructions, medications. 13:21 Vitals are Complete in accordance with Emergency Department Policy. 13:35 Discharge ordered by . luis 13:38 No prescriptions given. rc5 13:45 Patient left the ED. rc5 Signatures: David Bernardo PA-C PA-C mk Chartier, Michelle, RN RN md1 Kimi Jaramillo RN RN rc5 David Vaz [facility] Name Value Range Interpretation Code Description Data Arlin rce(s) Supporting Document(s) ID Date Data Source [id number] 07/13/2020 12:44:00 PM EST [facility] Name Value Range Interpretation Code Description Data Arlin rce(s) Supporting Document(s) Respiratory specimen severe acute respir atory syndrome coronavirus 2 (SARS-CoV-2) RNA [facility] This lab was ordered by [facility] Zaida eagle and reported by [facility]. ID Date Data Source [id number] 07/13/2020 11:59:00 AM [facility]man Exam Number: [id number] Reported By: - STEF TYLER MD Signed By: STEF TYLER MD Name Value Range Interpretation Code Description Data Arlin rce(s) Supporting Document(s) ID Date Data Source [id number] 07/17/2020 12:38:00 PM [facility] Name: YAIR MUSTAFA : 7 Age/Sex: 65F Ordering Provider: GRACE Walsh Med Rec #: [id number] Reg Status: [facility] ER Room #: Date of Service: 07/13/20 Report Number: [id number] cc:Dilan Quinones MD Send Report To: [id number] CT/CT Chest for PE with Contrast Reason for exam: SOB FINDINGS: Thoracic inlet appears normal. Heart and mediastinum within normal limits. No pleural or pericardial effusions. No evidence for any pulmonary emboli identified. The lung carty are clear. The upper abdomen demonstrates the spleen to be at the upper limits of normal with a length of 14 cm. No other significant findings. IMPRESSION: Spleen at the upper limits of normal in size. That is concerningfor portal hypertension. No other significant findings. While performing the above CT exam, the following dose reduction techniques wereused: *Automated exposure control *Adjustment of the mA and/or kV according to patient size *Use of iterative reconstruction technique CT Dose in mSv: 2.63 Contrast Agent in ml: Isovue 370 85 Method of Administration: Intraveneous REPORT SIGNATURE ON FILE Reported By: Diego Yates MD <Electronically signed by Geetha Yates MD> 07/18/20 1147 Dictation Date/Time: 07/17/20 1004 Transcribed Date/Time: 07/17/20 1238 Cylinder Die Machine Operator: PAMELA Name Value Range Interpretation Code Description Data Arlin rce(s) Supporting Document(s) ID Date Data Source [id number] 07/13/2020 12:19:00 PM [facility] First test? UNKNOWNEmployed in healthca re? UNKNOWNSymptomatic per CDC? UNKNOWNHospitalized? UNKNOWNICU? UNKNOWNResident in congregated care? ex intermediate, ARC UNKNOWN? UNKNOWNManual entry verified by Flory Olmedo 07/13/20 1218 Name Value Range Interpretation Code Description Data Arlin rce(s) Supporting Document(s) SARS-CoV-2 Not Detect [facility] Positive for detection of SARS-CoV-2. Po sitive results are indicative of active infection with SARS-CoV-2 but do not rule out bacterial infection or co- infection with other viruses. Testing was performed using the BlockSpringe real-time nested multiplexed PCR Respiratory Panel 2.1 This test has not been FDA cleared or approved. This test has been authorized by FDA under an (Emergency Use Authorization) EUA for use by authorized laboratories. This test is only authorized for the duration of the declaration that circumstances exist justifying the authorization of emergency use of in vitro diagnostic tests for detection and/or diagnosis of SARS-CoV-2. Fact sheets for this EUA assay can be found at the following links: General: https://www.cdc.gov/COVID19 Healthcare Professionals: https://www.cdc.gov/coronavirus/2019-nCoV/guidance-hcp.html THIS IS A STATE REPORTABLE COMMUNICABLE DISEASE. Results called 07/13/20 1218, read back information to LAB.[facility] Methodology: Multiplexed PCR ID Date Data Source [id number] 07/17/2020 12:26:00 PM [facility] Name: YAIR MUSTAFA : 7 Age/Sex: 65F Ordering Provider: GRACE Walsh Med Rec #: [id number] Reg Status: [facility] ER Room #: Date of Service: 07/13/20 Report Number: [id number] cc:Dilan Quinones MD Send Report To: [id number] XRP/XR Chest Xray Portable Reason for exam: COUGH, PAIN FINDINGS: The cardiac and mediastinal silhouettes appear normal and the lungs are clear. The bones and soft tissues are normal. The upper abdomen is unremarkable. IMPRESSION: No acute disease identifiable. Fluoroscopy time in seconds: Number of Exposures: Time Portable Image Performed: 1120 Contrast Agent in ml: Method of Administration: REPORT SIGNATURE ON FILE Reported By: Diego Yates MD <Electronically signed by Geetha Yates MD> 07/18/20 1147 Dictation Date/Time: 07/17/20 1004 Transcribed Date/Time: 07/17/20 1226 Cylinder Die Machine Operator: PAMELA Name Value Range Interpretation Code Description Data Arlin rce(s) Supporting Document(s) ID Date Data Source [id number] 07/17/2020 10:04:00 AM [facility] Name: YAIR MUSTAFA : 7 Age/Sex: 65F Ordering Provider: GRACE Walsh Med Rec #: [id number] Reg Status:[facility] Room #: Date of Service: 07/13/20 Report Number: [id number] cc: Dilan Quinones MD; GRACE Walsh Send Report To: Reason for exam: PLEURITIC PAIN SINUS TACHYCARDIA NONSPECIFIC ST & T-WAVE ABNORMALITY ABNORMAL RHYTHM ECG Physician Jacquard Card Cutter: Dr. Adolfo Vizcarra M.D. ECG HEART RATE: 105 /min ECG RR INTERVAL: 569 ms ECG P DURATION: 109 ms ECG QRS DURATION: 92 ms ECG [place] INTERVAL: 130 ms ECG QT INTERVAL: 337 ms ECG QTC INTERVAL: 415 ms Q-T dispersion: ms ECG P AXIS: 51 deg ECG QRS AXIS: -5 deg ECG T AXIS: 28 deg REPORT SIGNATURE ON FILE 07/17/20 1004 Reported By: Adolfo Vizcarra MD <<Signature on File>> Exam Date/Time: 07/13/20 1044 Order #: [id number] Dictation Date/Time: 07/17/20 1004 Transcribed Date/Time: 07/17/20 1004 Cylinder Die Machine Operator: RIVAS Name Value Range Interpretation Code Description Data Arlin rce(s) Supporting Document(s) ID Date Data Source [id number] 07/13/2020 11:49:00 AM [facility] Value Range Interpretation Code Description Data Arlin rce(s) Supporting Document(s) D-Dimer Quant 1160 ng/mLFEU <500 PH [facility] DAVID BERNARDO read back critical informa tion 07/13/20 1147 LAB.DAVSA Positive for D-Dimer. DVT/PE or DIC may be present. D-Dimer is an exclusionary test and is used in conjunction with a clinical pretest probability (PTP) assessment model to exclude DVT and PE. Consider further diagnostic studies to confirm diagnosis. ID Date Data Source [id number] 07/13/2020 11:48:00 AM [facility] Value Range Interpretation Code Description Data Arlin rce(s) Supporting Document(s) Troponin I 0.000-0.045 Normal (applies to non-numeric resu lts) [facility] ID Date Data Source [id number] 07/13/2020 11:48:00 AM [facility] Value Range Interpretation Code Description Data Arlin rce(s) Supporting Document(s) C-Reactive Protein,Wide Range <3.00 Above high normal [facility] ID Date Data Source [id number] 07/13/2020 11:48:00 AM [facility] Value Range Interpretation Code Description Data Arlin rce(s) Supporting Document(s) Sodium 141 mmol/L 137-145 Normal (applies to non-numeric resul ts) [facility] Potassium 3.5-5.1 Normal (applies to non-numeric resul ts) [facility] Chloride 105 mmol/L 98-112 Normal (applies to non-numeric resul ts) [facility] Carbon Dioxide CO2 22.0-33.0 Normal (applies to non-numer ic results) [facility] Anion Gap 4.0-11.0 Normal (applies to non-numeric resul ts) [facility] BUN 15 mg/dL 7-17 Normal (applies to non-numeric resul ts) [facility] Creatinine 0.70-1.20 Below low normal [facility] GFR >60 Normal (applies to non-numeric results) [facility] Result based on MDRD formula. Glucose Level 164 mg/dL 74-99 Above high normal [facility] The reference range is only applicable w hen fasting. Calcium-Uncorrected 8.4-10.2 Normal (applies to non-nume antelmo results) [facility] Corrected Calcium 8.4-10.2 Normal (applies to non-numeri c results) [facility] Bilirubin,Total 0.2-1.3 Normal (applies to non-numeric results) [facility] SGOT(AST) 50 U/L 14-36 Above high normal [facility] SGPT(ALT) 55 U/L 9-52 Above high normal [facility] Alkaline Phosphatase 71 U/L 38-126 Normal (applies to non-num maureen results) [facility] can increase Alkaline Phosp le vels up to 2 times the normal adult value. Normal values for children and adolescents are 2 to 3 times the normal adult value. Total Protein 6.3-8.2 Normal (applies to non-numeric re sults) [facility] Albumin 3.5-5.0 Normal (applies to non-numeric resul ts) [facility] ID Date Data Source [id number] 07/13/2020 11:30:00 AM EST [facility] Name Value Range Interpretation Code Description Data Arlin rce(s) Supporting Document(s) White Blood Count 4.8-10.8 Normal (applies to non-numeri c results) [facility] Red Blood Count 3.68-5.22 Normal (applies to non-numeric results) [facility] Hemoglobin 11.2-15.7 Normal (applies to non-numeric resul ts) [facility] Hematocrit 34.1-44.9 Normal (applies to non-numeric resul ts) [facility] Mean Corpuscular Volume 81-99 Normal (applies to non- numeric results) [facility] Mean Corpuscular Hemoglobin 27.0-33.0 Normal (appli es to non-numeric results) [facility] Mean Corpuscular HGB Conc 32.0-36.0 Normal (applies to no n-numeric results) [facility] Red Cell Distribution Width 11.5-14.5 Normal (appli es to non-numeric results) [facility] Platelet Count 248 X10 3/uL 130-450 Normal (applies to non-numeric results) [facility] Mean Platelet Volume 9.5-12.7 Below low normal [facility] Imm Grans% (AUTO) 1 % 0-2 Normal (applies to non-numeri c results) [facility] Neutrophils % (AUTO) 76 % 40-75 Above high normal [facility] Lymphocytes % (AUTO) 11 % 21-46 Below low normal [facility] Monocytes % (AUTO) 10 % 5-12 Normal (applies to non-numer ic results) [facility] Eosinophils % (AUTO) 2 % 1-5 Normal (applies to non-num maureen results) [facility] Basophils % (AUTO) 0 % 0-1 Normal (applies to non-numer ic results) [facility] Imm Grans# (AUTO) 0.0-0.5 Normal (applies to non-numeri c results) [facility] Neutrophils # (AUTO) 1.5-8.1 Normal (applies to non-num maureen results) [facility] Lymphocytes # (AUTO) 1.0-3.1 Below low normal [facility] Monocytes # (AUTO) 0.2-1.3 Normal (applies to non-numer ic results) [facility] Eosinophils# (AUTO) 0.0-0.5 Normal (applies to non-nume antelmo results) [facility] Basophils # (AUTO) 0.0-0.1 Normal (applies to non-numer ic results) [facility] ID Date Data Source [id number] 07/10/2020 10:09:00 AM EST [facility] Name: YAIR MUSTAFA : 7 Age/Sex: 65F Ordering Provider: Dilan Quinones MD Med Rec #: [id number] Reg Status: DEP REF Room #: Date of Service: 07/10/20 Report Number: [id number] cc:Dilan Quinones MD Send Report To: [id number] US/US Abdomen Complete Reason for exam: NON ALCOHOLIC STEATOHEPATITIS FINDINGS: Liver: Fatty infiltration is identified. Prominent in size measuring 18.4 cm. Gallbladder: Appears unremarkable without evidence of cholelithiasis, pericholecystic fluid, or gallbladder wall thickening. Gallbladder wall is normal at 2.1 mm. CBD: Normal at 6 mm. Kidneys: Right measures 13.3 x 5.0 x 5.2 cm. Left measures 10.4 x 5.0 x 4.3 cm. No hydronephrosis or nephrolithiasis is identified. Spleen: Within normal limits measuring 11.5 cm. Pancreas: Visualized portions appear unremarkable. Aorta: Visualize d portions appear unremarkable. IVC: Within normal limits. IMPRESSION: Fatty infiltration of the liver. Examination otherwise unremarkable. REPORT DICTATED BY DIEGO CARMICHAEL, REVIEWED AND SIGNED BY DR. YATES. REPORT SIGNATURE ON FILE Reported By: Diego Yates MD <Electronically signed by Geetha Yates MD> 07/11/2018 Dictation Date/Time: 07/10/20 0814 Transcribed Date/Time: 07/10/20 1009 Cylinder Die Machine Operator: CARINE Name Value Range Interpretation Code Description Data Arlin rce(s) Supporting Document(s) ID Date Data Source [id number] 07/07/2020 01:59:00 PM EST [facility] Name Value Range Interpretation Code Description Data Arlin rce(s) Supporting Document(s) USTSH 2.33 uIU/mL 0.270-4.200 [facility] ID Date Data Source [id number] 07/07/2020 01:59:00 PM EST [facility] Name Value Range Interpretation Code Description Data Arlin rce(s) Supporting Document(s) D-DIMER < 0.19 mg/L [facility] CUT OFF VALUE = 0.5 mg/L The negative pr edictive value for DVT or PE is at 98% whenthe result is below the cut off. ID Date Data Source [id number] 07/05/2020 06:22:00 PM EST [facility] Name Value Range Interpretation Code Description Data Arlin rce(s) Supporting Document(s) TROPI < 0.015 ng/mL 0.000-0.079 [facility] Data Source [id number] 07/05/2020 03:01:00 PM EST [facility] Exam Number: [id number] OF EXAMINATION : 07/05/2020 14:14 ESTCHEST SINGLE VIEWHISTORY: Chest painTECHNIQUE: Single frontal radiograph of chestCOMPARISON: 03/25/2014FINDINGS:No evidence of focal consolidation, pneumothorax or large pleuraleffusion. Lungs are clear. Mediastinal structures are unremarkable. Noaggressive osseous lesions.IMPRESSION:No focal consolidation.Electronically signed in PS360 by: John De La Torre M.D. 07/05/202014:49 EST Reported By: Petr DE LA TORRE M.D. Signed By: Nilda DE LA TORRE M.D. Name Value Range Interpretation Code Description Data Arlin rce(s) Supporting Document(s) ID Date Data Source [id number] 07/05/2020 03:14:00 PM EST [facility] Name Value Range Interpretation Code Description Data Arlin rce(s) Supporting Document(s) TROPI < 0.015 ng/mL 0.000-0.079 [facility] Date Data Source [id number] 07/05/2020 03:14:00 PM EST [facility] Name Value Range Interpretation Code Description Data Arlin rce(s) Supporting Document(s) GLU 168 mg/dL 70-110 [facility] Patients taking Sulfasalazine may have f alsely depressedGlucose levels. Patients taking Sulfapyridine may havefalsely elevated Glucose levels. Patients should be drawnfor Glucose before the initial administration of eitherdrug. BUN 16 mg/dL 7-23 [facility] CRE 0.444 mg/dL 0.500-1.300 [facility] GFR > 60 mL/min [facility] CHLORIDE 105 mmol/L 99-110 [facility] NA 139 mmol/L 136-147 [facility] POTASSIUM 3.5 mmol/L 3.5-5.1 [facility] TCO2 28 mmol/L 20-33 [facility] ANION GAP 9.5 10.0-20.0 [facility] CA 8.8 mg/dL 8.3-10.7 [facility] ALKALINE PHOS 65 U/L 45-117 [facility] TP 7.8 g/dL 6.0-7.8 [facility] ALB 4.2 g/dL 3.5-5.0 [facility] ESRD Dialysis patient Albumin reference range: 2.9-4.4 g/dL GL 3.6 g/dL 2.3-3.5 [facility] A/G 1.2 1.0-2.5 [facility] T. BILIRUBIN 0.4 mg/dL 0.1-1.1 [facility] [place] Total Bilirubin is n ot recommended forpatients undergoing treatment with eltrombopag (Promacta)due to the potential for falsely elevated results. ALTI 39 U/L 6-54 [facility] Patients taking Sulfasalazine and/or Sul fapyridine may havefalsely depressed ALT levels. Patients should be drawn forALT before the initial administration of either drug. AST 20 U/L 6-38 [facility] Patients taking Sulfasalazine and/or Sul fapyridine may havefalsely depressed AST levels. Patients should be drawn forAST before the initial administration of either drug. ID Date Data Source [id number] 07/05/2020 02:32:00 PM EST [facility] Name Value Range Interpretation Code Description Data Arlin rce(s) Supporting Document(s) WBC 7.00 x10E3/uL 4.0-10.5 [facility] RBC 4.78 x10E6/uL 4.20-5.40 [facility] Hemoglobin 14.5 g/dL 12.0-16.0 [facility] Hematocrit 43.7 % 37.0-47.0 [facility] MCV 91.4 fL 81.0-99.0 [facility] MCH 30.3 pg 27.0-31.0 [facility] MCHC 33.2 g/dL 32.7-35.6 [facility] RDW 12.2 % 11.5-14.0 [facility] Platelet count 310 x10E3/uL 150-450 [facility] ital MPV 8.9 fl 6.9-9.5 [facility] Neutrophils 68.6 % 34-64 [facility] Lymphocytes 21.9 % 25-45 [facility] Monocytes 6.6 % 1.7-10.6 [facility] Eosinophils 1.4 % 0.4-7.0 [facility] Basophils 0.4 % 0.1-2.0 [facility] Imm. Gran. 1.1 % 0.1-2.0 [facility] Abs. Neutro. 4.80 x10E3/uL 1.2-7.6 [facility] Abs. Lymph. 1.53 x10E3/uL 1.0-3.5 [facility] Abs. [place]. 0.46 x10E3/uL 0.1-1.0 [facility] Abs. Eosin. 0.10 x10E3/uL 0.1-0.7 [facility] Abs. Baso. 0.03 x10E3/uL 0.0-0.1 [facility] Abs. Imm. Gran. 0.08 x10E3/uL 0.0-0.1 [facility] spital ANRBC% 0 % 0 [facility] ID Date Data Source [id number] 07/05/2020 06:35:00 PM EST [facility]: [facility]air MustafaAge: 65 yrsSex: FemaleDOB: 1955MRN: [id number] Date: 07/05/2020Time: 13:46Account#: [id number] MD: Cesario QuinonesDiagnosis: Chest pain, unspecifiedPresentation:06/1613:52 Presenting complaint: Patient states: chest pain that started this tlmmonring, woke her up and has been continuous. Coronavirus Screening:Have you traveled internationally or had contact with someone thathas traveled and has been ill in the past 3 weeks? no Have youtraveled to a location with widespread or ongoing COVID-19 communityspread or outside of [facility]? no Flu-like symptoms reported in thelast 14 days: no. Have you had close contact with confirmed orsuspected COVID-19 case? no Have you been diagnosed with COVID-19 inthe past 30 days? no Are you currently on quarantine by [facility]? no. Communicable Disease Screen: Negative for fever>/= 100degrees Fahrenheit. Communicable disease screen is negative. (-) rashor unusual skin lesion (-) travel/contact with traveler (-)respiratory symptoms.13:52 Acuity: Triage 3 tlm13:52 Method Of Arrival: Private Vehicle tlm13:53 Acuity Assignment: Triage 3 tlmTriage Assessment:13:55 General: Appears in no apparent distress, well nourished, well tlmgroomed, Behavior is cooperative. Sepsis Screening: (1)Signs/symptomsinfection No. Pain: Complains of pain in chest Quality of pain isdescribed as sharp, stabbing, Pain began suddenly. PSS-3 Now I'mgoing to ask you some questions that we ask everyone treated here, nomatter what problem they are here for. It is part of the hospital'spolicy and it helps us to make sure we are not missing anythingimportant. Over the past 2 weeks, have you felt down, depressed, orhopeless? No. Over the past 2 weeks, have had thoughts of killingyourself? No. In your lifetime, have you ever attempted to killyourself? No.Historical:- Allergies: Ceclor; Codeine; PENICILLINS; Zithromax; Doxycycline; Vioxx;vicoden;erythromycin; Aspirin; SULFA (SULFONAMIDES);- Home Meds:1. Xopenex 1.25 mg/3 mL Inhl nebu as needed2. Advair Diskus 500-50 mcg/dose Inhl dsdv 1 puff twice a day3. Proventil 90 mcg/actuation Inhl aero 2 puffs every 4 hours asneeded4. Clarinex 5 mg Oral tab at bedtime as needed5. Nexium 40 mg Oral cpDR 1 cap once daily6. Dyazide 37.5-25 mg Oral cap 1 cap once daily7. astelin nightly8. Nasacort 55 mcg Nasal spra 1 spray nightly9. Mylanta Double-Strength 400-400-40 mg/5 mL Oral susp as ovyyca64. epi-pen as wdyjca04. Crestor 10 mg oral tab vsbpfsi81. metformin 500 mg Oral tab 1 tab three times a day13. Farxiga 10 mg oral tab 1 tab once daily14. naturemade daily15. Vitamin D3 oral daily- PMHx: Asthma; Diabetes mellitus;- Immunization history: Flu vaccine is up to date.- Social history: Smoking status: Patient states was never smoker oftoSantech. ETOH status Denies use of ETOH.- Advance Directives:: None.Screenin:33 Abuse screen: Denies threats or abuse. Denies injuries from another. tf4Girldpytohi screening: No deficits noted. Offer of HIV testing:patient was previously offered screening. Fall Risk None identified.Assessment:16:00 General: Appears in no apparent distress, Behavior is cooperative, ku1tfeuwagt.16:00 Derm: No deficits noted. Neuro: Level of Consciousness is awake, aw7enigf, obeys commands. Respiratory: Airway is patent Respiratoryeffort is even, unlabored.Vital Signs:13:56 BP 143 / 79; Pulse 110; Resp 18; Temp 98.8; Pulse Ox 96% ; Weight tlm79.5 kg (R); Pain 8/10;17:21 BP 122 / 66 (auto/); Pulse 100 MON; ef117:25 Pulse 98 MON; Resp 17; Pulse Ox 94% ; ef117:26 BP 112 / 64 (auto/); Pulse 100 MON; ef117:31 BP 116 / 62 (auto/); Pulse 105 MON; ef117:31 Pulse 105 MON; Resp 13; Pulse Ox 95% ; ef117:36 BP 118 / 66 (auto/); Pulse 102 MON; ef117:36 Pulse 102 MON; Resp 16; Pulse Ox 95% ; ef117:40 Pulse 102 MON; Resp 17; Pulse Ox 96% ; ef118:28 BP 129 / 65 (auto/); Pulse 104; Resp 18; Temp 98; Pulse Ox 96% on R/A;ef1ED Course:13:46 Patient arrived in ED. tlm13:46 Cesario Quinones MD is Private Physician. tlm13:53 Triage completed. tlm13:56 Patient placed in exam room on stretcher. tlm14:01 Andre Bojorquez MD is Attending Physician. th414:20 Gauri Baires, JAMA is Primary Nurse. sw214:25 Labs drawn. (by ED staff). Inserted peripheral IV: 20 gauge in left gh0msxrgbkcbla area and blood collected.16:00 Patient has correct armband on for positive identification. Placed in yu3qmwx. Bed in low position. Call light in reach.16:00 Verbal reassurance given. Pillow given. ef118:24 Cesario Quinones MD is Referral Physician. th418:34 No Physician assisted procedures completed. Discontinued lock intact, id7zrgicokx controlled, pressure dressing applied, No redness/swellingat site.Administered Medications:14:29 Drug: Aspirin 162 mg [aspirin 81 mg chewable tablet (2 tabs)] Route: sw2PO;18:33 Follow up: Response: No adverse reaction ef114:29 Drug: Nitrostat 0.4 mg [Nitrostat 0.4 mg sublingual tablet (1 tabs)] ws4Xheol: Sublingual;18:33 Follow up: Response: No adverse reaction lc1Ijrfgfn:18:25 Discharge ordered by . th418:28 Disposition: Discharged to home ambulatory. ef118:28 Condition: stable.18:28 Discharge instructions given to patient, Instructed on dischargeinstructions, follow up and referral plans. Demonstratedunderstanding of instructions.18:28 Discharge Assessment: Patient verbalized understanding of dispositioninstructions. Patient has no functional deficits.18:35 Patient left the ED. am5Dmstqztmao:Patricia Ruano RN RN Andre Ferrara MD MD qb4OfginlAleisha Vasquez RN RN or5GevdGauri salazar, RN RN sw2 Name Value Range Interpretation Code Description Data Arlin rce(s) Supporting Document(s) ID Date Data Source [id number] 07/05/2020 06:35:00 PM EST [facility] Physician DocumentationClaxmalathi-Roxana Padron edical CenterName: Yair KeenangerAge: 65 yrsSex: FemaleDOB: 1955MRN: [id number] Date: 07/05/2020Time: 13:46Account#: [id number] MD: Maria Guadalupe Quinones Physician Andre BojorquezDisposition Summary:07/05/20 18:25Discharge OrderedLocation: Home Self Care ey1Zmpjtij: new be0Bjejzvop: have improved oz0Ruvndurlv: Improved mr1Ekvqsmqsc- Chest pain, unspecified ow9Iyzcmppo: th4- With: Cesario Quinones MD- When: 2 - 3 days- Reason: Recheck today's complaints, Continuance of careDischarge Instructions:- Discharge Summary Sheet th4- CHEST PAIN, NonCardiac hp3Zidsw:- Medication Reconciliation th4- Medication Reconciliation Form - 2nd Copy es4Kynnsxhykfq:06/1618:24 Critical Care: not applicable. th4HPI:14:14 This 65 yrs old White Female presents to ER via Private Vehicle with fv2zsixxquyqo of Chest Pain > 30 y/o.14:14 Patient comes the ER today complaining of chest pain. She states that th4she woke up with pain this morning. The pain is located in the leftanterior chest. She describes it as a pressure as well as sharp andburning at times. It has radiated to the left shoulder. She currentlyrates the pain as a 7 out of 10. She has never had this before.Denies any shortness of breath. She reports a little nausea but novomiting. No fever or recent illness. No recent injury or trauma. Noabdominal pain. Denies feeling weak or dizzy. She has had a littlediarrhea. She denies any other problems or any other complaints..Historical:- Allergies: Ceclor; Codeine; PENICILLINS; Zithromax; Doxycycline; Vioxx;vicoden;erythromycin; Aspirin; SULFA (SULFONAMIDES);- Home Meds:1. Xopenex 1.25 mg/3 mL Inhl nebu as needed2. Advair Diskus 500-50 mcg/dose Inhl dsdv 1 puff twice a day3. Proventil 90 mcg/actuation Inhl aero 2 puffs every 4 hours asneeded4. Clarinex 5 mg Oral tab at bedtime as needed5. Nexium 40 mg Oral cpDR 1 cap once daily6. Dyazide 37.5-25 mg Oral cap 1 cap once daily7. astelin nightly8. Nasacort 55 mcg Nasal spra 1 spray nightly9. Mylanta Double-Strength 400-400-40 mg/5 mL Oral susp as . epi-pen as icufsg58. Crestor 10 mg oral tab tctanzd96. metformin 500 mg Oral tab 1 tab three times a day13. Farxiga 10 mg oral tab 1 tab once daily14. naturemade daily15. Vitamin D3 oral daily- PMHx: Asthma; Diabetes mellitus;- Immunization history: Flu vaccine is up to date.- Social history: Smoking status: Patient states was never smoker Cognio. ETOH status Denies use of ETOH.- Advance Directives:: None.ROS:14:15 Constitutional: Negative for chills, fever. Eyes: Negative for acute us6cglzjkx. ENT: Negative for nasal discharge, rhinorrhea, sinuscongestion. Neck: Negative for acute changes. Cardiovascular:Positive for chest pain. Respiratory: Negative for shortness ofbreath. Abdomen/GI: Positive f or nausea, Negative for abdominal pain,vomiting, diarrhea. Abdomen/GI: Positive for diarrhea. Back: Negativefor acute changes. : Negative for urinary symptoms. MS/extremity:Negative for acute changes. Skin: Negative for rash. Neuro: Negativefor dizziness, headache, weakness. Hematologic/Lymphatic: Negativefor abnormal bleeding.Exam:14:16 Constitutional: This is a well developed, well nourished patient who th4is awake, alert, and in no acute distress. Head/Face: Normocephalic,atraumatic.14:16 Neck: External neck: is normal, ROM/movement: is normal, is supple.14:16 Chest/axilla: Palpation: is normal, no tenderness.14:16 Cardiovascular: Rate: normal, Rhythm: regular, Heart sounds: normal,normal S1and S2, no murmur, Edema: is not appreciated.14:16 Respiratory: the patient does not display signs of respiratorydistress, Respirations: normal, Breath sounds: are normal, clearthroughout.14:16 Abdomen/GI: Bowel sounds: normal, Palpation: abdomen is soft andnon-tender, in all quadrants.14:16 Back: pain, is absent, ROM is normal, CVA tenderness, is absent.14:16 Musculoskeletal/extremity: Extremities: no acute changes.14:16 Skin: Appearance: Color: normal in color, Temperature: warm,Moisture: dry.14:16 Neuro: Orientation: is normal, Mentation: is normal.14:16 Psych: Behavior/mood is pleasant, cooperative.Vital Signs:13:56 BP 143 / 79; Pulse 110; Resp 18; Temp 98.8; Pulse Ox 96% ; Weight tlm79.5 kg (R); Pain 8/10;17:21 BP 122 / 66 (auto/); Pulse 100 MON; ef117:25 Pulse 98 MON; Resp 17; Pulse Ox 94% ; ef117:26 BP 112 / 64 (auto/); Pulse 100 MON; ef117:31 BP 116 / 62 (auto/); Pulse 105 MON; ef117:31 Pulse 105 MON; Resp 13; Pulse Ox 95% ; ef117:36 BP 118 / 66 (auto/); Pulse 102 MON; ef117:36 Pulse 102 MON; Resp 16; Pulse Ox 95% ; ef117:40 Pulse 102 MON; Resp 17; Pulse Ox 96% ; ef118:28 BP 129 / 65 (auto/); Pulse 104; Resp 18; Temp 98; Pulse Ox 96% on R/A;ef1MDM:14:01 Patient medically screened. 414:34 ECG:. 418:25 The patient was given aspirin in the Emergency Department. The hh3lixzbbv was not given beta chris in the Emergency Department. Datareviewed: vital signs, nurses notes, lab test result(s), EKG,radiologic studies, plain films. Data interpreted: traffic monitor specialist:Interpretation: normal rate, normal rhythm. ED c ourse: Patientremained stable in the ER. Patient with atypical chest pain as above.Patient received aspirin and nitroglycerin with some improvement.EKG, chest x-ray, and lab work were all unremarkable. Patient with 2- troponins by 3 hours. This is unlikely cardiac. Patientreports a normal stress test a couple years ago. I am not sure whatis causing her pain but it does not appear to be anything concerningat this time. Acid reflux with esophageal spasm? Costochondritis?Patient was reassured. She will follow-up with her doctor. Wediscussed return precautions. Patient is well-appearing,well-hydrated, not ill or toxic in any way..06/1614:14 Order name: CBC with diff; Complete Time: 15::14 Order name: CMP; Complete Time: 15::14 Order name: Troponin-I; Complete Time: 15:4:14 Order name: Chest Single View; Complete Time: 15:4:14 Order name: EKG in Patient's Room 5:21 Order name: Troponin-I; Complete Time: 18:22 :14 Order name: Production Machine Operator; Complete Time: 14:30 4:14 Order name: EKG.; Complete Time: 14:4:14 Order name: Pulse Ox Continuous; Complete Time: :4:14 Order name: Saline Lock; Complete Time: 14:4:14 Order name: Vital Signs per Triage policy; Complete Time: 14:4:14 Order name: Weigh Patient in Kg; Complete Time: 14:ny4Jriiwntzr Medications:14:29 Drug: Aspirin 162 mg [aspirin 81 mg chewable tablet (2 tabs)] Route: sw2PO;18:33 Follow up: Response: No adverse reaction ef114:29 Drug: Nitrostat 0.4 mg [Nitrostat 0.4 mg sublingual tablet (1 tabs)] ov3Hkghg: Sublingual;18:33 Follow up: Response: No adverse reaction ef1EC:34 Rate is 117 beats/min. Rhythm is regular, Sinus tachycardia. Left fc8jjyd deviation noted. QRS is negative in lead aVF. [place] interval isnormal. QRS interval is normal. QT interval is normal. No Q waves. Twaves are Flattened in leads I, aVL, V4, V5, V6. ST Segment isdepressed in leads V2, V3, V4, V5, <1mm. Interpreted by me.Signatures:Dispatcher [employer] Patricia Dougherty RN RN tlmHowland, MD ROBERTA Garcia mf2Pmfb, JAMA Astorga RN lo1Rfoyoh, Aleisha YUN ef1 Name Value Range Interpretation Code Description Data [facility](s) Supporting Document(s) ID Date Data Source [id number] 03/09/2020 07:06:00 PM EDT [facility] Name Value Range Interpretation Code Description Data [facility](s) Supporting Document(s) ALBUMIN,URINE 13.7 mg/L 5-17 [facility] MICROALB/CREAT 13.0 mg/g CR 0-30 N [facility] ital CREAT. URINE 105.0 mg/dL [facility] ID Date Data Source [id number] 03/09/2020 07:02:00 PM EDT [facility] Name Value Range Interpretation Code Description Data [facility](s) Supporting Document(s) CHOL 149 mg/dL 100-200 [facility] TRIG 188 mg/dL 30-190 [facility] HDL 42 mg/dL 35-80 [facility] LDL DIRECT 89 mg/dL 0-100 [facility] VLDL 18 mg/dL 0-100 [facility] ID Date Data Source [id number] 03/09/2020 07:02:00 PM EDT [facility] Name Value Range Interpretation Code Description Data Arlin rce(s) Supporting Document(s) GLU 157 mg/dL 70-110 [facility] Patients taking Sulfasalazine may have f alsely depressedGlucose levels. Patients taking Sulfapyridine may havefalsely elevated Glucose levels. Patients should be drawnfor Glucose before the initial administration of eitherdrug. BUN 12 mg/dL 7-23 [facility] CRE 0.423 mg/dL 0.500-1.300 [facility] GFR > 60 mL/min [facility] CHLORIDE 104 mmol/L 99-110 [facility] NA 142 mmol/L 136-147 [facility] POTASSIUM 3.6 mmol/L 3.5-5.1 [facility] TCO2 29 mmol/L 20-33 [facility] ANION GAP 12.6 10.0-20.0 [facility] CA 9.0 mg/dL 8.3-10.7 [facility] ALKALINE PHOS 56 U/L 45-117 [facility] TP 7.0 g/dL 6.0-7.8 [facility] ALB 3.8 g/dL 3.5-5.0 [facility] ESRD Dialysis patient Albumin reference range: 2.9-4.4 g/dL GL 3.2 g/dL 2.3-3.5 [facility] A/G 1.2 1.0-2.5 [facility] T. BILIRUBIN 0.4 mg/dL 0.1-1.1 [facility] [place] Total Bilirubin is n ot recommended forpatients undergoing treatment with eltrombopag (Promacta)due to the potential for falsely elevated results. ALTI 34 U/L 6-54 [facility] Patients taking Sulfasalazine and/or Sul fapyridine may havefalsely depressed ALT levels. Patients should be drawn forALT before the initial administration of either drug. AST 22 U/L 6-38 [facility] Patients taking Sulfasalazine and/or Sul fapyridine may havefalsely depressed AST levels. Patients should be drawn forAST before the initial administration of either drug. ID Date Data Source [id number] 03/09/2020 06:48:00 PM EDT [facility] Name Value Range Interpretation Code Description Data Arlin rce(s) Supporting Document(s) WBC 6.89 x10E3/uL 4.0-10.5 [facility] RBC 4.32 x10E6/uL 4.20-5.40 [facility] Hemoglobin 13.2 g/dL 12.0-16.0 [facility] Hematocrit 40.7 % 37.0-47.0 [facility] MCV 94.2 fL 81.0-99.0 [facility] MCH 30.6 pg 27.0-31.0 [facility] MCHC 32.4 g/dL 32.7-35.6 [facility] RDW 12.3 % 11.5-14.0 [facility] Platelet count 306 x10E3/uL 150-450 [facility] ital MPV 9.6 fl 6.9-9.5 [facility] Neutrophils 59.8 % 34-64 [facility] Lymphocytes 29.3 % 25-45 [facility] Monocytes 7.3 % 1.7-10.6 [facility] Eosinophils 2.3 % 0.4-7.0 [facility] Basophils 0.3 % 0.1-2.0 [facility] Imm. Gran. 1.0 % 0.1-2.0 [facility] Abs. Neutro. 4.1 x10E3/uL 1.2-7.6 [facility] Lymph. 2.0 x10E3/uL 1.0-3.5 [facility] Abs. [place]. 0.5 x10E3/uL 0.1-1.0 [facility] Abs. Eosin. 0.2 x10E3/uL 0.1-0.7 N [facility] l Abs. Baso. 0.0 x10E3/uL 0.0-0.1 [facility] Abs. Imm. Gran. 0.1 x10E3/uL 0.0-0.1 [facility] pital ANRBC% 0 % 0 [facility] ID Date Data Source [id number] 01/21/2020 12:26:00 PM EDT [facility] Name: YAIR MUSTAFA [facility] Rec #: [id number] : 1955 Age/Sex: 64F Date of Service: 01/21/20 DISPOSITION SUMMARY Discharge Summary [facility] Name:Yair Glynnoeger [facility] Age:64 yrs Sex:Female :1955 Arrival:01/21/2020 12:26 Departure Date01/21/2020 Departure Time14:13 Private MD:Dilan Quinones MD Outcome: Discharge Location: Home/Self Care Condition: Good Chief Complaint: Back Pain Diagnosis: Acute Low Back Pain Prescriptions: Lidoderm 5 % Topical adhesive patch,medicated - apply 1 patch by TRANSDERMAL route once daily; 15 patch Follow up: Dilan Quinones MD Custom Notes: Attending Physician: Rudy Carbajal MD Private MD: Dilan Quinones MD Mid Level Provider: Lyle Bennett RNP Followup Physician: Dilan Quinones MD Orders: Cbc With Auto Differential, COMMET, UA., Collect Urine - Clean Catch, C-Reactive Protein,Wide Range, Lidocaine Discharge Instruction: Discharge Summary Sheet, Acute Back Pain, Adult, Medication Reconciliation, Fax Visit Summary for Dilan Quinones MD Name Value Range Interpretation Code Description Data Arlin rce(s) Supporting Document(s) ID Date Data Source [id number] 01/21/2020 12:26:00 PM EDT [facility] Name: YAIR MUSTAFA [facility] Rec #: [id number] : 1955 Age/Sex: 64F Date of Service: 01/21/20 PHYSICIAN CHART Physician Documentation [facility] Name: Yair Mustafa Age: 64 yrs Sex: Female : 1955 Arrival Date: 01/21/2020 Time: 12:26 Bed FT1 Private MD: Dilan Quinones E ED Physician Rudy Carbajal Disposition: 01/20 13:17 Attestation: Patient was seen by the [facility] aaq Provider. I was personally available in the department for consultation but did not see or discuss the patient with them. HPI: 12:48 This 64 yrs old Female presents to ER via Walk-In wn with complaints of Back Pain. 12:50 64 yo F presents for eval of low back pain. Pain started wn appx 2 days ago, She describes as burning sensation across lower back. Pain does not radiate. Worse if she twists or reaches. Denies trauma and doesn't recall injuring her back moving or twisting. No hx of chronic back pain, denies UA symptoms, hematuria, abdominal pain, n/v/d/f/c. No saddle paresthesia or difficulty walking. Denies urinary retention or incontinence. Patient has asthma, denies SOB. . Historical: - Allergies: Amoxicillin; Aspirin; Azithromycin; Ceclor; Codeine; Doxycycline; Erythromycin; Hycomine; PENICILLINS; PROPOFOL; SULFA (SULFONAMIDES); Valium; Versed; Vicodin; Vioxx; - PMHx: ASTHMA; vertigo; Diabetes - NIDDM; Hypercholesterolemia; - Immunization history: All immunizations are up to date. - Advance directive: There is no existing advanced directive. Information offered. - Family History:: mother : unknown medical history. Father : unknown medical history. - Social History: Smoking status (Tobacco): Patient states he/she has never smoked tobacco. Preferred Language: Tanzanian. ROS: 12:55 Constitutional: Negative for fever. Cardiovascular: wn Negative for chest pain. Respiratory: Negative for shortness of breath. Abdomen/GI: Negative for abdominal pain, nausea, vomiting. Back: See HPI. Exam: 12:55 Constitutional: This is a well developed, well nourished wn patient who is awake, alert, afebrile and in no acute distress. Cardiovascular: Regular rate and rhythm Respiratory: Easy respiratory effort, lungs are clear to auscultation Abdomen/GI: soft, non-tender throughout, no guarding or rebound tenderness. 12:55 Back: pain, that is moderate, of the low back area, normal spinal alignment noted, CVA tenderness, is absent, vertebral tenderness, is not appreciated, Patient able to walk/stand on toes/heels. Pain is not reproducible with p alpation. No rash noted. . Vital Signs: 12:33 BP 137 / 72; Pulse 99; Resp 16; Temp 96.7; Pulse Ox 99% on sj R/A; MDM: 12:36 Patient medically screened. 14:01 ED course: . 01/20 12:43 Order name: Cbc With Auto Differential; Complete Time: 13:55w 01/20 12:43 Order name: COMMET; Complete Time: 13:55 01/20 12:43 Order name: UA.; Complete Time: 13:55 01/20 12:43 Order name: Collect Urine - Clean Catch; Complete Time: wn 13:06 01/20 12:43 Order name: C-Reactive Protein,Wide Range; Complete Time: 13:55 Dispensed Medications: 14:12 Drug: Lidocaine 1 patches [lidocaine 5 % topical patch (1 jg3 patches)] Route: Topical; Site: affected area; 14:12 Follow up: Response: Medication administered at discharge. jg3 Disposition Summary: 01/21/20 14:01 Discharge Ordered Location: Home/Self Care wn Condition: Good wn Diagnosis - Acute Low Back Pain wn Followup: wn - With: Dilan Quinones MD - When: 1 week - Reason: Discharge Instructions: - Discharge Summary Sheet wn - Acute Back Pain, Adult wn Forms: - Medication Reconciliation wn Prescriptions: - Lidoderm 5 % Topical adhesive patch,medicated - apply 1 patch by TRANSDERMAL route once daily; 15 wn patch; Refills: 0, Product Selection Permitted Signatures: Dispatcher [employer] [facility]VA Lyle Bennett RNP RNP wn Kwame Lamb RN RN jg3 Rudy Carbajal MD MD aaq Name Value Range Interpretation Code Description Data Arlin rce(s) Supporting Document(s) ID Date Data Source [id number] 01/21/2020 12:26:00 PM EDT [facility] Name: YAIR MUSTAFA [facility] Rec #: [id number] : 1955 Age/Sex: 64F Date of Service: 01/21/20 NURSE CHART Nurse's Notes [facility] Name: Yair Mustafa Age: 64 yrs Sex: Female : 1955 Arrival Date: 01/21/2020 Time: 12:26 Bed FT1 [facility] MD: Dilan Quinones E Diagnosis: Acute Low Back Pain Presentation: 01/20 12:30 Transition of care: patient was not received from another setting of care. Presenting complaint: Patient states - She has had mid back pain that radiates to both hips. The pain started 2 days ago. Denies injury,shortness of breath,cough or exposure to anyone suick. Have you travelled in the last 30 days? Yes, Where have you travelled? [facility] for allergy injections. Have you had contact with an individual with a confirmed diagnosis of Ebola or COVID-19? No. 12:30 Method Of Arrival: Walk-In 12:30 Acuity: Semi- Urgent - 4 Triage Assessment: 12:32 Suicide Screening: Have you had thoughts of harming sj yourself or others? No. The patient appears to have some mild discomfort, The patient is cooperative. Patient states the pain is currently a 5 / 10 The patient complains of pain in mid back area. The quality of the pain is described as sharp, The pain is described as continuous. 13:01 SEPSIS SCREEN: A Confirmed or Suspected Infection is jg3 Unknown, their temperature is not <96.8 or >100.9, their heart rate is not >90, their RR is not >20, it is unknown if their WBC is <4 or >12, the patient does not have new or unexplained altered mental status. SIRS or Sepsis criteria is not present. Historical: - Allergies: Amoxicillin; Aspirin; Azithromycin; Ceclor; Codeine; Doxycycline; Erythromycin; Hycomine; PENICILLINS; PROPOFOL; SULFA (SULFONAMIDES); Valium; Versed; Vicodin; Vioxx; - PMHx: ASTHMA; vertigo; Diabetes - NIDDM; Hypercholesterolemia; - Immunization history: All immunizations are up to date. - Advance directive: There is no existing advanced directive. Information offered. - Family History:: mother : unknown medical history. Father : unknown medical history. - Social History: Smoking status (Tobacco): Patient states he/she has never smoked tobacco. Preferred Language: Tanzanian. Screenin:13 AUDIT 1. How often do you have a drink containing alcohol? jg3 Never (0 points). Drug Abuse Screening Test: 1. Have you used drugs other than those required for medical reasons? No (0 points), screen is complete, no risk. Abuse screen: Denies threats or abuse. Denies injuries from another. Nutritional screening: The patient is obese. Patient has no identifiable fall risk (Gordon Scale: 0 points). Assessment: 13:03 The patient appears to have some mild discomfort, The jg3 patient is cooperative. Vital Signs: 12:33 BP 137 / 72; Pulse 99; Resp 16; Temp 96.7; Pulse Ox 99% on sj R/A; ED Course: 12:27 Patient arrived in ED. kmo 12:32 Triage completed. sj 12:33 Dilan Quinones MD is Private Physician. sj 12:33 Arm band placed on right wrist. sj 12:34 [facility]. wn 12:34 Rudy Carbajal MD is Attending Physician. wn 12:34 Kwame Lamb, JAMA is Primary Nurse. wn 13:01 Patient has correct armband on for positive identification. jg3 Placed in gown. Call light in reach. Adult w/ patient. 13:01 Labs drawn by lab staff. jg3 13:05 Urine collected. Clean catch specimen. jg3 14:01 Bri Quinones MD is Referral Physician. wn 14:13 Radiology: None performed. jg3 14:13 No procedures ordered. jg3 Administered Medications: 14:12 Drug: Lidocaine 1 patches [lidocaine 5 % topic al patch (1 jg3 patches)] Route: Topical; Site: affected area; 14:12 Follow up: Response: Medication administered at discharge. jg3 Outcome: 14:01 Discharge ordered by . wn 14:13 Patient verbalized understanding of disposition jg3 instructions. Patient has no functional deficits. 14:13 Patient discharged to home ambulatory, with family. 14:13 Condition: good 14:13 Discharge instructions given to patient, Patient was instructed on discharge instructions, follow up and referral plans. medication usage, The patient demonstrated understanding of instructions, medications, Prescriptions given X 1. 14:13 Vitals are Complete in accordance with Emergency Department Policy. 14:13 Patient left the ED. jg3 Signatures: Lyle Bennett RNP DOOR PERSON Taylor Casillas RN RN Kwame Lamb, JAMA YUN j Flash Coello, Reg Reg kmo Name Value Range Interpretation Code Description Data Arlin rce(s) Supporting Document(s) ID Date Data Source [id number] 01/21/2020 01:29:00 PM EDT [facility] Name Value Range Interpretation Code Description Data [facility] rce(s) Supporting Document(s) Color,Urine Yellow Normal (applies to non-numeric resu lts) [facility] Clarity,Urine Clear Normal (applies to non-numeric re sults) [facility] Specific [place],Urine 1.001-1.030 Normal (applies to non- numeric results) [facility] PH,Urine 5.0-8.0 Normal (applies to non-numeric resul ts) [facility] Protein,Urine Negative Normal (applies to non-numeric re sults) [facility] Glucose,Urine (UA) Negative [facility] Ketones,Urine 40 mg/dL Negative [facility] Blood,Urine Negative Normal (applies to non-numeric resu lts) [facility] Bilirubin,Urine Negative Normal (applies to non-numeric results) [facility] Urobilinogen,Urine Norm 0.2-1 Normal (applies to non-numer ic results) [facility] Leukocyte Esterase,Urine Negative Normal (applies to non -numeric results) [facility] Nitrite,Urine Negative Normal (applies to non-numeric re sults) [facility] ID Date Data Source [id number] 01/21/2020 01:54:00 PM EDT [facility] Name Value Range Interpretation Code Description [facility] Supporting Document(s) White Blood Count 4.8-10.8 Normal (applies to non-numeri c results) [facility] Red Blood Count 3.68-5.22 Normal (applies to non-numeric results) [facility] Hemoglobin 11.2-15.7 Normal (applies to non-numeric resul ts) [facility] Hematocrit 34.1-44.9 Normal (applies to non-numeric resul ts) [facility] Mean Corpuscular Volume 81-99 Normal (applies to non- numeric results) [facility] Mean Corpuscular Hemoglobin 27.0-33.0 Normal (appli es to non-numeric results) [facility] Mean Corpuscular HGB Conc 32.0-36.0 Normal (applies to no n-numeric results) [facility] Red Cell Distribution Width 11.5-14.5 Normal (appli es to non-numeric results) [facility] Platelet Count 258 X10 3/uL 130-450 Normal (applies to non-numeric results) [facility] Mean Platelet Volume 9.5-12.7 Below low normal [facility] Imm Grans% (AUTO) 1 % 0-2 Normal (applies to non-numeri c results) [facility] Neutrophils % (AUTO) 75 % 40-75 Normal (applies to non-num maureen results) [facility] Lymphocytes % (AUTO) 16 % 21-46 Below low normal [facility] Monocytes % (AUTO) 7 % 5-12 Normal (applies to non-numer ic results) [facility] Eosinophils % (AUTO) 1 % 1-5 Normal (applies to non-num maureen results) [facility] Basophils % (AUTO) 1 % 0-1 Normal (applies to non-numer ic results) [facility] Imm Grans# (AUTO) 0.0-0.5 Normal (applies to non-numeri c results) [facility] Neutrophils # (AUTO) 1.5-8.1 Normal (applies to non-num maureen results) [facility] Lymphocytes # (AUTO) 1.0-3.1 Normal (applies to non-num maureen results) [facility] Monocytes # (AUTO) 0.2-1.3 Normal (applies to non-numer ic results) [facility] Eosinophils# (AUTO) 0.0-0.5 Normal (applies to non-nume antelmo results) [facility] Basophils # (AUTO) 0.0-0.1 Normal (applies to non-numer ic results) [facility] ID Date Data Source [id number] 01/21/2020 01:31:00 PM EDT [facility] Name Value Range Interpretation Code Description Data Arlin rce(s) Supporting Document(s) Sodium 139 mmol/L 137-145 Normal (applies to non-numeric resul ts) [facility] Potassium 3.5-5.1 Below low normal [facility] Chloride 105 mmol/L 98-112 Normal (applies to non-numeric resul ts) [facility] Carbon Dioxide CO2 22.0-33.0 Normal (applies to non-numer ic results) [facility] Anion Gap 4.0-11.0 Normal (applies to non-numeric resul ts) [facility] BUN 13 mg/dL 7-17 Normal (applies to non-numeric resul ts) [facility] Creatinine 0.70-1.20 Below low normal [facility] GFR >60 Normal (applies to non-numeric results) [facility] Result based on MDRD formula. Glucose Level 165 mg/dL 74-99 Above high normal [facility] The reference range is only applicable w hen fasting. Calcium-Uncorrected 8.4-10.2 Normal (applies to non-nume antelmo results) [facility] Corrected Calcium 8.4-10.2 Normal (applies to non-numeri c results) [facility] Bilirubin,Total 0.2-1.3 Normal (applies to non-numeric results) [facility] SGOT(AST) 18 U/L 14-36 Normal (applies to non-numeric resul ts) [facility] SGPT(ALT) 29 U/L 9-52 Normal (applies to non-numeric resul ts) [facility] Alkaline Phosphatase 57 U/L 38-126 Normal (applies to non-num maureen results) [facility] can increase Alkaline Phosp le vels up to 2 times the normal adult value. Normal values for children and adolescents are 2 to 3 times the normal adult value. Total Protein 6.3-8.2 Normal (applies to non-numeric re sults) [facility] Albumin 3.5-5.0 Normal (applies to non-numeric resul ts) [facility] ID Date Data Source [id number] 01/21/2020 01:31:00 PM EDT [facility] Name Value Range Interpretation Code Description Data Arlin rce(s) Supporting Document(s) C-Reactive Protein,Wide Range <3.00 Normal (applies t o non-numeric results) [facility] Procedure Social History Code Duration Value Status Description Data Source(s ) Smoking 06/22/2020 12:00:00 AM EST Patient has never smoked co mpleted Patient has never smoked [facility] ([facility] ) Vital Signs ID Date Data Source UNK Name Value Range Interpretation Code Description Data Source(s) Body mass index (BMI) [Ratio] 32.2 kg/m2 32.2 k g/m2 [facility] ([facility]) Diastolic blood pressure 74 mm[Hg] 74 mm[Hg] [facility] ([facility] Systolic blood pressure 117 mm[Hg] 117 mm[Hg] M [facility] ([facility]) Respiratory rate 16 /min 16 /min [facility] ( [facility]) Heart rate 87 /min 87 /min [facility] Body height 62 [in_i] 62 [in_i] [facility] 5'2" Body weight 176.12 [lb_av] 176.12 [lb_av] [facility] T ([facility]) Body mass index (BMI) [Ratio] 32.0 kg/m2 32.0 k g/m2 [facility] ([facility] Body weight 175.00 [lb_av] 175.00 [lb_av] [facility] ([facility] Body height 62 [in_i] 62 [in_i] [facility] 5'2" Oxygen saturation in Arterial blood by Pulse oximetry 96 % 96 % [facility] ([facility] Heart rate 87 /min 87 /min [facility] ([facility] Diastolic blood pressure 80 mm[Hg] 80 mm[Hg] [facility] ([facility] Systolic blood pressure 130 mm[Hg] 130 mm[Hg] M [facility] ([facility] ID Date Data Source [id number] 09/05/2020 01:33:00 AM [facility] Name Value Range Interpretation Code Description Data Source(s) Weight (Calculated Kilograms) 80.74 80.74 [facility] Height (Calculated Centimeters) 157.48 157. 48 [facility] Body Mass Index (BMI) 32.5 32.5 [facility] ID Date Data Source [id number] 07/14/2020 01:46:00 PM [facility] Name Value Range Interpretation Code Description Data Source(s) Weight (Calculated Kilograms) 80.74 80.74 [facility] Height (Calculated Centimeters) 157.48 157. 48 [facility] Body Mass Index (BMI) 32.5 32.5 [facility] Weight (Calculated Kilograms) 80.74 80.74 [facility] Height (Calculated Centimeters) 157.48 157. 48 [facility] Body Mass Index (BMI) 32.5 32.5 [facility] Weight (Calculated Kilograms) 80.74 80.74 [facility] Height (Calculated Centimeters) 157.48 157. 48 [facility] Body Mass Index (BMI) 32.5 32.5 [facility] ID Date Data Source [id number] 07/11/2020 12:38:00 AM [facility] Name Value Range Interpretation Code Description Data Source(s) Weight (Calculated Kilograms) 80.74 80.74 [facility] Height (Calculated Centimeters) 157.48 157. 48 [facility] Body Mass Index (BMI) 32.5 32.5 [facility] ID Date Data Source [id number] 03/28/2020 07:50:00 AM [facility] Name Value Range Interpretation Code Description Data Source(s) Weight (Calculated Kilograms) 80.74 80.74 [facility] Height (Calculated Centimeters) 157.48 157. 48 [facility] Body Mass Index (BMI) 32.5 32.5 [facility] ID Date Data Source [id number] 01/22/2020 02:14:00 PM [facility] Name Value Range Interpretation Code Description Data Source(s) Weight (Calculated Kilograms) 80.74 80.74 [facility] Height (Calculated Centimeters) 157.48 157. 48 [facility] Body Mass Index (BMI) 32.5 32.5 [facility] Weight (Calculated Kilograms) 80.74 80.74 [facility] Height (Calculated Centimeters) 157.48 157. 48 [facility] Body Mass Index (BMI) 32.5 32.5 [facility]
[2020-09-08] MEDS ORDERED: NS 1,000 ML IV ONE (13:15)
[2020-09-08 13:43] LABS: BASO % 0.4 % (0.0-1.0); EOS # 0.1 10^3/uL (0.0-0.5); EOS % 1.2 % (0.0-3.0); LYMPH # 1.8 10^3/uL (1.5-5.0); MEAN CORPUSCULAR HEMOGLOBIN 30.2 pg (27.0-33.0); MEAN CORPUSCULAR HGB CONC 32.6 g/dl (32.0-36.5); MEAN CORPUSCULAR VOLUME 92.9 fl (80.0-96.0); MONO # 0.5 10^3/uL (0.0-0.8); NEUTROPHILS # 5.2 10^3/uL (1.5-8.5); NEUTROPHILS % 67.9 % (36.0-66.0); PLATELET COUNT, AUTOMATED 315 10^3/uL (150-450); RED BLOOD COUNT 4.63 10^6/uL (4.00-5.40); WHITE BLOOD COUNT 7.7 10^3/uL (4.0-10.0)
--- OUTSIDE RECORDS SUMMARY | 2020-09-08 13:44 | CCD ---
Author Author [facility] Organization [facility] Address Unknown Phone Unavailable Care Team Providers Care Celebrity Chef Entrepreneur Media Personality Name Role Phone Ishmael Bojorquez MD Unavailable [...] Unavailable Tarun Quinones MD Unavailable Unavailable Tarun Quinonse MD Unavailable Unavailable Tarun Quinones MD Unavailable [...] MD Unavailable Unavailable CHROSTOWSKIMERCEDESZ MD Unavailable Unavailable CHRIRINEO RAINEY MD Unavailable Unavailable CHRIRINEO RAINEY MD Unavailable Unavailable CHRIRINEO RAINEY MD Unavailable Unavailable CHROSTIRINEO PATLE MD Unavailable Unavailable CHRIRINEO RAINEY MD Unavailable Unavailable CHRIRINEO RAINEY MD Unavailable Unavailable Young, S Mauricio MS-AIRPORT OPERATIONS DUTY MANAGER Unavailable Unavailable Young, S Mauricio MS-[employer]IRPORT OPERATIONS DUTY MANAGER Unavailable Unavailable Young, S Mauricio MS-[place]IRPORT OPERATIONS DUTY MANAGER Unavailable Unavailable Young, S Mauricio MS-AIRPORT OPERATIONS DUTY MANAGER Unavailable Unavailable Young, S Mauricio MS-AIRPORT OPERATIONS DUTY MANAGER Unavailable Unavailable Young, S Mauricio MS-AIRPORT OPERATIONS DUTY MANAGER Unavailable Unavailable Young, S Mauricio MS-AIRPORT OPERATIONS DUTY MANAGER Unavailable Unavailable Young, S Mauricio MS-AIRPORT OPERATIONS DUTY MANAGER Unavailable Unavailable Young, S Mauricio MS-AIRPORT OPERATIONS DUTY MANAGER Unavailable Unavailable Young, S Mauricio MS-AIRPORT OPERATIONS DUTY MANAGER Unavailable Unavailable Young, S Mauricio MS-AIRPORT OPERATIONS DUTY MANAGER Unavailable Unavailable Young, S Mauricio MS-AIRPORT OPERATIONS DUTY MANAGER Unavailable Unavailable Young, S Mauricio MS-AIRPORT OPERATIONS DUTY MANAGER Unavailable Unavailable Young, S Mauricio MS-AIRPORT OPERATIONS DUTY MANAGER Unavailable Unavailable Young, S Mauricio MS-AIRPORT OPERATIONS DUTY MANAGER Unavailable Unavailable Young, S Mauricio MS-AIRPORT OPERATIONS DUTY MANAGER Unavailable Unavailable Young, S Mauricio MS-AIRPORT OPERATIONS DUTY MANAGER Unavailable Unavailable Young, S Mauricio MS-AIRPORT OPERATIONS DUTY MANAGER Unavailable Unavailable Young, S Mauricio MS-AIRPORT OPERATIONS DUTY MANAGER Unavailable Unavailable Young, S Mauricio MS-AIRPORT OPERATIONS DUTY MANAGER Unavailable Unavailable Young, S Mauricio MS-AIRPORT OPERATIONS DUTY MANAGER Unavailable Unavailable Young, S Mauricio MS-[place]IRPORT OPERATIONS DUTY MANAGER Unavailable Unavailable NOSTROM, LYLE FUR BLOWER OPERATOR Unavailable Unavailable NOSTROM, LYLE FUR BLOWER OPERATOR Unavailable Unavailable NOSTROM, LYLE FUR BLOWER OPERATOR Unavailable Unavailable NOSTROM, LYLE FUR BLOWER OPERATOR Unavailable Unavailable NOSTROM, LYLE FUR BLOWER OPERATOR Unavailable Unavailable NOSTROM, LYLE FUR BLOWER OPERATOR Unavailable Unavailable NOSTROM, LYLE FUR BLOWER OPERATOR Unavailable Unavailable NOSTROM, LYLE FUR BLOWER OPERATOR Unavailable Unavailable NOSTROM, LYLE FUR BLOWER OPERATOR Unavailable Unavailable NOSTROM, LYLE FUR BLOWER OPERATOR Unavailable Unavailable NOSTROM, LYLE FUR BLOWER OPERATOR Unavailable Unavailable NOSTROM, LYLE FUR BLOWER OPERATOR Unavailable Unavailable NOSTROM, LYLE FUR BLOWER OPERATOR Unavailable Unavailable ANDRE BOJORQUEZ MD Unavailable Unavailable O'ARON, MARITN OD Unavailable Unavailable O'ARON, MARTIN OD Unavailable [...] Mendez MD Unavailable Unavailable Michael, Kip Kelsey FUR BLOWER OPERATOR Unavailable Unavailable Michael, L Kelsey FUR BLOWER OPERATOR Unavailable Unavailable Michael, L Kelsey FUR BLOWER OPERATOR Unavailable Unavailable Michael L Kelsey FUR BLOWER OPERATOR Unavailable Unavailable Michael, L Kelsey FUR BLOWER OPERATOR Unavailable Unavailable Michael, L Kelsey FUR BLOWER OPERATOR Unavailable Unavailable Michael, L Kelsey FUR BLOWER OPERATOR Unavailable Unavailable Michael, L Kelsey FUR BLOWER OPERATOR Unavailable Unavailable Michael, L Kelsey FUR BLOWER OPERATOR Unavailable Unavailable Michael, L Kelsey FUR BLOWER OPERATOR Unavailable Unavailable Michael, L Kelsey FUR BLOWER OPERATOR Unavailable Unavailable Michael, L Kelsey FUR BLOWER OPERATOR Unavailable Unavailable Michael, L Kelsey FUR BLOWER OPERATOR Unavailable Unavailable Michael, L Kelsey FUR BLOWER OPERATOR Unavailable Unavailable Michael, L Kelsey FUR BLOWER OPERATOR Unavailable Unavailable Michael, L Kelsey FUR BLOWER OPERATOR Unavailable Unavailable Michael, L Kelsey FUR BLOWER OPERATOR Unavailable Unavailable Michael, L Kelsey FUR BLOWER OPERATOR Unavailable Unavailable Michael, L Kelsey FUR BLOWER OPERATOR Unavailable Unavailable Michael, L Kelsey FUR BLOWER OPERATOR Unavailable Unavailable Michael, L Kelsey FUR BLOWER OPERATOR Unavailable Unavailable Michael, L Kelsey FUR BLOWER OPERATOR Unavailable Unavailable Re-disclosure Warning The records that [...] is protected by Article 27-F of the [facility] Public Health law. If you continue you may have access to information: Regarding HIV / AIDS; Provided by facilities licensed or operated by the [facility] Office of Mental Health; or Provided by the [facility] Office for People With Developmental Disabilities. If such information is present, then the following [facility] mandated warning applies: This information has [...] law may result in a fine or senior living sentence or both. A general authorization for the release of medical or other information is NOT sufficient authorization for further disc losure. Allergies and Adverse Reactions Type Description Substance Reaction Status Data Source(s ) Drug allergy Drug allergy Sulfa (Sulfonamide Antibiotics) Unknown [place] ction [facility] Drug allergy Drug allergy rofecoxib (From Vioxx) Unknown Reaction [facility] Drug allergy Drug allergy acetaminophen (From Vicodin) Unknown Reacti on [facility] Drug allergy Drug allergy hydrocodone (From Vicodin) Unknown Reaction [facility] Family History Family Member Name Family Member Gender Family Member Status Date o f Status Description Data Source(s) Unknown Male Problem [facility] ([facility] () Unknown Female Problem [facility] ([facility]) Unknown Female Problem [facility] ([facility]) Unknown Female Problem [facility] ([facility]) Unknown Female Problem [facility] ([facility]) Unknown Female Problem [facility] ([facility]) Unknown Female Problem [facility] ([facility]) Unknown Female Problem MED[facility] ([facility], ) Encounters Encounter Providers Location Date Indications Data Source(s ) Outpatient Attender: KINA EDWARDS CPSCAORT-CPSLADER 11:19:00 AM [facility] - 09/04/2020 11:20:00 AM EST [facility] Patient discharged. Outpatient Attender: Dilan Quionnes MD ER-LAB-PNP 08/15/2020 12:58:00 PM [facility] Emergency Attender: Vaughn King MD CPSCAORT-ED 10:17:00 AM EST - 07/13/2020 01:45:00 PM EST COUGH, HEADACHE, FEVER [facility] COUGH, HEADACHE, FEVER Patient discharged. Outpatient Attender: Dilan Quinones MD CPSCAORT-IMACN 07/10/2020 08:02:00 AM EST - 07/10/2020 08:03:00 AM EST NONALCOHOLIC STEATOHEPATITIS [facility] NONALCOHOLIC STEATOHEPATITIS Patient discharged. Outpatient Attender: Dilan Quinones MD ER-LAB 07/07/2020 12:0 4:00 PM [facility] Emergency Attender: Andre Bojorquez MDAttender: ANDRE BOJORQUEZ MD ER-ER 07/05/2020 01:46:00 PM EST - 07/05/2020 06:35:00 PM EST [facility] ospital Patient discharged. Outpatient Attender: IRINEO PHAM MD Main Office 06/22/2020 02:00:00 PM EST [facility] ([facility] Outpatient Attender: Dilan Quinones MD ER-LAB-PNP 03/09/2020 05:50:00 PM EDT [facility] Outpatient Attender: MARTIN ECHAVARRIA OD CPSCAORT-CPSLAOPT 02:10:00 PM EDT - 03/01/2020 02:11:00 PM EDT [facility] Patient discharged. Emergency Attender: LYLE BENNETT FUR BLOWER OPERATOR Attender: Leta Mendez MDAttender: Leta Mendez MD CPSCAORT-ED 01/21/2020 12:26:00 PM EDT - 01/21/2020 03:06:00 PM EDT BACK PAIN [facility] BACK PAIN Patient discharged. [facility] [address] [place] [phone] 11/01/2019 12:00:00 AM EDT eCW1 ([facility]) Outpatient Attender: Kelsey Rodriguez NP Main Office 08/31/2019 10:00:00 AM EST [facility] ([facility] Outpatient Attender: Dilan Quinones MD ER-LAB-PNP 07/09/2019 12:55:00 PM [facility] Outpatient Attender: Dilan Quinones MD ER-LAB-PNP 03/10/2019 12:50:00 PM [facility] Outpatient Attender: Jaclyn Mills MD ER-LAB 12/31/2018 09:31:00 A M [facility] Outpatient Attender: Mauricio Ortega MS-AIRPORT OPERATIONS DUTY MANAGER 12/16/2018 01:10:00 PM [facility] Outpatient Attender: Dilan Quinones MD ER-LAB-PNP 04/27/2018 12:59:00 PM [facility] Medications Medication Brand Name Start Date Product [...] to watson Policy Watson Plan Information MEDICARE [id number] SP [id number] [id number] [place] 302/307 [id number] HU2 [id number] [place]LLUS BCBS [place] [id number] Other [id number] MEDICARE [id number] Other [id number] Y11 BLUE CROSS [id number] HUS [id number] MCRB [id number] HUS [id number] Y11 MEDICARE [id number] S [id number] Y11 EXCELLUS BCBS [place] [id number] Other [id number] MEDICARE [id number] Other [id number] A BLUE CROSS [id number] HUS [id number] BLUE CROSS [id number] HUS [id number] MEDICARE [id number] S [id number] A [place] Primary [id number] Self [id number] Apa Partners/Multiplan Medigap Part B [id number] Family Depen dent [id number] [facility]/Resolve Medigap Part B [id number] Self [id number] BS [place] Medigap Part B [id number] Family Depend ent [id number] Medicare [place] Medicare Primary [id number] Self [id number] [place] Medicare Primary [id number] Self [id number] [place] Medicare Primary [id number] Self [id number] [place] Medicare Primary [id number] Self [id number] EXCELLUS BCBS [place] [id number] Other [id number] [facility] [id number] HUS [id number] [place] PPO 302/307 [id number] HU2 [id number] MEDICARE [id number] SP [id number] [id number] [place]BS [place] PPO 302/307 [id number] HU2 [id number] MEDICARE [id number] SP [id number] Y11 ANSI-Medicare Part B [id number] ANSI-Commercial [id number] Resolve Health Plan Administra .[id number] Commercial Insurance Co. .[id number] BCBS .[id number] Blue Cross/Blue Shield .[id number] Medicare .[id number] Medicare Part [id number] .[id number] MEDICARE [id number] SP [id number] A Medicare [place] Medicare Primary [id number] Self [id number] Medicare [facility] Medicare Primary [id number] Self [id number] Medicare [facility] Medicare Primary [id number] Self [id number] [place] Medicare Primary [id number] Self [id number] Medicare [facility] Medicare Primary [id number] Self [id number] Medicare [facility] Medicare Primary [id number] Self [id number] EXCELLUS BCBS B [id number] S [id number] MEDICARE C [id number] S [id number] A EXCELLUS BCBS B [id number] P [id number] BC BS [place] FEDERAL B [id number] P [id number] Medical Evaluation Specialit Medigap Part B [id number] Self [id number] [address] [facility] Commercial [id number] Family Depend ent [id number] Medicare - NGS Medicare Primary [id number] Self [id number] BS Of [place] Commercial [id number] Family Depende nt [id number] [facility] [place] HEATHCARE [id number] HU2 [id number] [place] Medigap Part B [id number] Self [id number] Medicare [place]/[facility] Medicare Primary [id number] Self [id number] [place] Healthcare Health Maintenance Organization (HMO) [id number] Family Dependent [id number] [place] Medigap Part B [id number] Self [id number] [place] Medigap Part B [id number] Self [id number] [place] Medigap Part B [id number] Self [id number] [place] Medigap Part B [id number] Self [id number] [place] Medigap Part B [id number] Self [id number] EXCELLUS BCBS FEDERAL [id number] HU2 [id number] Ap[employer] Partners/Multiplan Medigap Part B Family Depen dent Medicare [place] Medigap Part B Self [facility] [place]/[facility] Commercial Self [facility] O [id number] P [id number] Medicare [place]/NGS Medicare Primary Self [facility] [place] [facility] Health Maintenance Organization (HMO) Family Dependent [facility] [id number] [facility] [id number] WORKERS COMPENSATION GENERIC W [id number] Empl [id number] [place] W [id number] [facility] [id number] [facility] P [id number] S [id number] A Problems, Conditions, and Diagnoses Code Display Name Description Problem Type Effective Dates Data Source(s) 96872495 Obstructive sleep apnea syndrome Obstructive sle ep apnea syndrome Problem 06/22/2020 12:00:00 AM EST [facility] ([facility] R10.9 Unspecified abdominal pain UNSPECIFIED ABDOMINAL PAIN Diagnosis 08/15/2020 12:58:00 PM [facility] R53.83 Other fatigue OTHER FATIGUE Diagnosis 07/07/2020 12:04:00 PM [facility] J45.909 Unspecified asthma, uncomplicated UNSPECIFIED THMA, UNCOMPLICATED Diagnosis 07/05/2020 01:46:00 PM [facility] R07.89 Other chest pain OTHER CHEST PAIN Diagnosis 07/05/2020 01 :46:00 PM [facility] R07.9 Chest pain, unspecified CHEST PAIN, UNSPECIFIED Diagno sis 07/05/2020 01:46:00 PM [facility] E78.00 PURE HYPERCHOLESTEROLEMIA, UNSPECIFIED P URE HYPERCHOLESTEROLEMIA, UNSPECIFIED Diagnosis 03/09/2020 05:50:00 PM EDT [facility] E11.9 Type 2 diabetes mellitus without complic ations TYPE 2 DIABETES MELLITUS WITHOUT COMPLIC Diagnosis 03/09/2020 05:50:00 PM EDT [facility] K21.9 Gastro-esophageal reflux disease without esophagitis GASTRO-ESOPHAGEAL REFLUX DISEASE WITHOUT ESOPHAGITIS Diagnosis 03/09/2020 05:50:00 PM ED [facility] E11.9 Type 2 diabetes mellitus without complic ations TYPE 2 DIABETES MELLITUS WITHOUT COMPLICATIONS Diagnosis 03/01/2020 02:10:00 PM EDT [facility] H52.13 Myopia, bilateral MYOPIA, BILATERAL Diagnosis 03/01/2020 02:10:00 PM EDT [facility] H16.223 Keratoconjunctivitis sicca, not specifie d as Sjogren's, bilateral KERATOCONJUNCT SICCA, NOT SPECIFIED SJOGREN'S, BILATERAL Diagnosis 03/01/2020 02:10:00 PM EDT [facility] H25.13 Age-related nuclear cataract, bilateral AGE-RELATED NUCLEAR CATARACT, BILATERAL Diagnosis 03/01/2020 02:10:00 PM EDT [facility] Surgeries/Procedures Procedure Description Date Indications Data Source(s) PROF BURNS ALLG IMMNTX X W/PRV ALLGIC XTRCS NJXS 2020 12:00:00 AM EST [facility] ([facility] ALLG IMMNTX X W/PRV ALLGIC XTRCS NJXS 2019 12:00:00 AM EST [facility] ([facility] ALLG IMMNTX X W/PRV ALLGIC XTRCS NJXS 2019 12:00:00 AM EST [facility] ([facility] ALL IMMNTX X W/PRV ALLGIC XTRCS NJXS 2019 12:00:00 AM EST [facility] ([facility]) PREPJ& ALLERGEN IMMUNOTHERAPY 1/ASPHALT ROLLER OPERATOR ANTIGEN 05/18/2020 12:00:00 AM EDT [facility] ([facility] ALLG IMMNTX X W/PRV ALLGIC XTRCS NJXS 2019 12:00:00 AM EDT [facility] ([facility] ALL IMMNTX X W/PRV ALLGIC XTRCS NJXS 2019 12:00:00 AM EDT [facility] ([facility] ALLG IMMNTX X W/PRV ALLGIC XTRCS NJXS 2019 12:00:00 AM EDT [facility] ([facility] ALLG IMMNTX X W/PRV ALLGIC XTRCS NJXS 2019 12:00:00 AM EDT [facility] ([facility] ALLG IMMNTX X W/PRV ALLGIC XTRCS NJXS 2019 12:00:00 AM EDT [facility] ([facility]) ARTHROCENTESIS ASPIR&/INJECTION MAJOR JT/BURSA 020 12:00:00 AM EDT [facility] Hospital outpatient clinic visit for assessment and ma nagement of a patient Hospital Outpatient Clinic Visit 03/01/2020 12:00:00 AM EDT [facility] ARTHROCENTESIS ASPIR&/INJECTION MAJOR JT/BURSA 12:00:00 AM EDT [facility] ([facility]) PROF PEREZ ALLG IMMNTX X W/PRV ALLGIC XTRCS NJXS 2019 12:00:00 AM EDT [facility] ([facility]) ARTHROCENTESIS ASPIR&/INJECTION MAJOR JT/BURSA 12:00:00 AM EDT [facility] ([facility]) ARTHROCENTESIS ASPIR&/INJECTION MAJOR JT/BURSA 12:00:00 AM EDT [facility] ([facility]) PROF ANA HILLIARDG IMMNTX X W/PRV ALLGIC XTRCS NJXS 2019 12:00:00 AM EDT [facility] ([facility]) ARTHROCENTESIS ASPIR&/INJECTION MAJOR JT/BURSA 12:00:00 AM EDT [facility] ([facility]) ARTHROCENTESIS ASPIR&/INJECTION MAJOR JT/BURSA 020 12:00:00 AM EDT [facility] ([facility]) RADIOLOGIC EXAMINATION KNEE 3 VIEWS 01/03/2020 12:00:0 0 AM EDT [facility] ([facility]) RADIOLOGIC EXAMINATION KNEE 3 VIEWS 01/03/2020 12:00:0 0 AM EDT [facility] ([facility]) PROF ANA HILLIARDG IMMNTX X W/PRV ALLGIC XTRCS NJXS 2019 12:00:00 AM EDT [facility] ([facility]) PROF PEREZ ALLG IMMNTX X W/PRV ALLGIC XTRCS NJXS 2019 12:00:00 AM EDT [facility] ([facility]) PREPJ& ALLERGEN IMMUNOTHERAPY 1/ASPHALT ROLLER OPERATOR ANTIGEN 12/01/2019 12:00:00 AM EDT [facility] ([facility] PROF [facility] ALLG IMMNTX X W/PRV ALLGIC XTRCS NJXS 2019 12:00:00 AM EDT [facility] ([facility] PROF [facility] ALLG IMMNTX X W/PRV ALLGIC XTRCS NJXS 2019 12:00:00 AM EDT [facility] ([facility] PROF [facility] ALLG IMMNTX X W/PRV ALLGIC XTRCS NJXS 2019 12:00:00 AM EDT [facility] ([facility]) PROF [facility] ALLG IMMNTX X W/PRV ALLGIC XTRCS NJXS 2019 12:00:00 AM EST [facility] ([facility] PROF [facility] ALLG IMMNTX X W/PRV ALLGIC XTRCS NJXS 2019 12:00:00 AM EST [facility] ([facility] PROF [facility] ALLG IMMNTX X W/PRV ALLGIC XTRCS NJXS 2019 12:00:00 AM EST [facility] ([facility]) Results ID Date Data Source [id number] 08/17/2020 11:22:00 AM EST [facility] Name Value Range Interpretation Code Description Data Arlin rce(s) Supporting Document(s) ORGANISM [facility] COLONY COUNT N [facility] ID Date Data Source [id number] 08/15/2020 01:20:00 PM EST [facility] Name Value Range Interpretation Code Description Data Arlin rce(s) Supporting Document(s) URINE COLOR Yellow N [facility] UAPR Clear N [facility] UGLU 3+ NEGATIVE N [facility] URINE BILIRUBIN Negative NEGATIVE N [facility] UKET Negative NEGATIVE [facility] USG 1.038 1.010-1.025 H [facility] UBLO Negative NEGATIVE [facility] UpH 5.0 5.0-8.0 N [facility] UPRO Negative Negative N [facility] UUB 0.2 mg/dL 0.2-1.0 N [facility] UNIT Negative Negative N [facility] ULEU Negative Negative N [facility] ID Date Data Source [id number] 07/13/2020 10:17:00 AM EST [facility] Name: YAIR MUSTAFA [facility] Rec #: [id number] : 1955 Age/Sex: 65F Date of Service: 07/13/20 DISPOSITION SUMMARY Discharge Summary [facility] Name:Yair Mustafa Emergency Department Age:65 yrs Sex:Female [...] rce(s) Supporting Document(s) ID Date Data Source [id number] 07/13/2020 10:17:00 AM [facility] Name: YAIR MUSTAFA [facility] Rec #: [id number] : 1955 Age/Sex: 65F Date of Service: 07/13/20 PHYSICIAN CHART Physician Documentation [facility] Name: Yair Mustafa Age: 65 yrs Sex: Female : 1955 Arrival Date: 07/13/2020 Time: 10:17 Bed EDRU-1 Private MD: Dilan Quinones E ED Physician Vaughn King Disposition: 07/13 13:59 Attestation: I discussed the plan of care with [facility] Practice Provider and agree with what [...] a low-grade fever. Patient was seen at [facility] within the last week and diagnosed with [...] he/she has never smoked tobacco. Preferred Language: Estonian. ROS: 11:47 Constitutional: Positive for fever, Negative [...] mk - With: Dilan Quinones MD - [facility] n: - Reason: Recheck today's complaints, Continuance of care, If symptoms persist Discharge Instructions: - Discharge Summary Sheet - COVID-19 Forms: - Medication Reconciliation Signatures: Dispatcher [employer] EDDavid Bonilla PA-C PA-C mk MacKinnon, Justin, MD MD jam2 David Cramer RN RN md1 Kimi Jaramillo RN RN rc5 Name Value Range Interpretation Code Description Data Arlin rce(s) Supporting Document(s) ID Date Data Source [id number] 07/13/2020 10:17:00 AM [facility] Name: YAIR MUSTAFA [facility] Rec #: [id number] : 1955 Age/Sex: 65F Date of Service: 07/13/20 NURSE CHART Nurse's Notes [facility] Name: Yair Mustafa Age: 65 yrs Sex: Female : 1955 Arrival Date: 07/13/2020 Time: 10:[address] MD: Dilan Quinones E Diagnosis: covid [...] has never smoked tobacco. Pre ferred Language: Estonian. Screenin:16 AUDIT 1. How often do you [...] Second set of blood cultures drawn by ok An EKG was obtained and reviewed by [...] Kimi Jaramillo RN RN rc5 [facility] Name Value Range Interpretation Code Description Data Arlin rce(s) Supporting Document(s) ID Date Data Source [id number] 07/13/2020 12:44:00 PM EST [facility] Name Value Range Interpretation Code Description Data Arlin rce(s) Supporting Document(s) Respiratory specimen severe acute respir atory syndrome coronavirus 2 (SARS-CoV-2) RNA [facility] This lab was ordered by [facility] Zaida eagle and reported by [facility]. ID Date Data Source [id number] 07/13/2020 11:59:00 AM [facility] Exam Number: [id number] Reported By: - STEF TYLER MD Signed By: STEF TYLER MD Name Value Range Interpretation Code Description Data Arlin rce(s) Supporting Document(s) ID Date Data Source [id number] 07/17/2020 12:38:00 PM [facility] Name: YAIR MUSTAFA : 7 Age/Sex: 65F Ordering Provider: GRACE [facility] Rec #: [id number] Reg Status: [facility] ER Room #: Date of Service: 07/13/20 Report Number: [id number] cc:Dilan Quinones MD Send Report To: [id number] CT/CT Chest for PE with Contrast Reason [...] Date/Time: 07/17/20 1004 Transcribed Date/Time: 07/17/20 1238 Cattle Dipper: PAMELA Name Value Range Interpretation Code Description Data Arlin rce(s) Supporting Document(s) ID Date Data Source [id number] 07/13/2020 12:19:[address] [facility] First test? UNKNOWNEmployed in [facility] re? UNKNOWNSymptomatic per CDC? UNKNOWNHospitalized? UNKNOWNICU? UNKNOWNResident in congregated care? ex shelter, [facility] UNKNOWN? UNKNOWNManual entry verified by Flory Olmedo 07/13/20 1218 Name Value Range Interpretation Code Description Data Arlin rce(s) Supporting Document(s) SARS-CoV-2 Not Detect Ag[facility] Positive for detection of SARS-CoV-2. Po sitive results are indicative of active infection with SARS-CoV-2 but do not rule out bacterial infection or co- infection with other viruses. Testing was performed using the [employer] real-time nested multiplexed PCR Respiratory Panel 2.1 [...] Methodology: Multiplexed PCR ID Date Data Source [id number] 07/17/2020 12:26:00 PM [facility] Name: YAIR MUSTAFA : 7 Age/Sex: 65F Ordering Provider: GRACE Walsh Med Rec #: [id number] Reg Status: [facility] ER Room #: Date of Service: 07/13/20 Report Number: [id number] cc:Dilan Quinones MD Send Report To: [id number] XRP/XR Chest Xray Portable Reason for exam: [...] Date/Time: 07/17/20 1004 Transcribed Date/Time: 07/17/20 1226 Cattle Dipper: PAMELA Name Value Range Interpretation Code Description Data Arlin rce(s) Supporting Document(s) ID Date Data Source [id number] 07/17/2020 10:04:00 AM [facility] Name: YAIR MUSTAFA : 7 Age/Sex: 65F Ordering Provider: GRACE Walsh Med Rec #: [id number] Reg Status:[facility] Room #: Date of Service: 07/13/20 Report Number: [id number] cc: Dilan Quinones MD; GRACE Walsh Send Report To: Reason for exam: PLEURITIC PAIN SINUS TACHYCARDIA NONSPECIFIC ST & T-WAVE ABNORMALITY ABNORMAL RHYTHM ECG Physician Data Storage Specialist: Dr. Adolfo Vizcarra M.D. ECG HEART RATE: 105 /min ECG RR INTERVAL: 569 ms ECG P DURATION: 109 ms ECG QRS DURATION: 92 ms ECG NH INTERVAL: 130 ms ECG QT INTERVAL: 337 ms ECG QTC INTERVAL: 415 ms Q-T dispersion: ms ECG P AXIS: 51 deg ECG QRS AXIS: -5 deg ECG T AXIS: 28 deg REPORT SIGNATURE ON FILE 07/17/20 1004 Reported By: Adolfo Vizcarra MD <<Signature on File>> Exam Date/Time: 07/13/20 1044 Order #: [id number] Dictation Date/Time: 07/17/20 1004 Transcribed Date/Time: 07/17/20 1004 Cattle Dipper: RIVAS Name Value Range Interpretation Code Description Data Arlin rce(s) Supporting Document(s) ID Date Data Source [id number] 07/13/2020 11:49:00 AM [facility] Value Range Interpretation Code Description Data Arlin rce(s) Supporting Document(s) D-Dimer Quant 1160 ng/mLFEU <500 PH [facility] DAVID BERNARDO read back critical informa tion 07/13/20 1147 LAB.DAVSA Positive for D-Dimer. DVT/PE or DIC may be present. D-Dimer is an exclusionary test and is used in conjunction with a clinical pretest probability (PTP) assessment model to exclude DVT and PE. Consider further diagnostic studies to confirm diagnosis. ID Date Data Source [id number] 07/13/2020 11:48:00 AM [facility] Value Range Interpretation Code Description Data Arlin rce(s) Supporting Document(s) Troponin I 0.000-0.045 Normal (applies to non-numeric resu lts) [facility] ID Date Data Source [id number] 07/13/2020 11:48:00 AM [facility] Value Range Interpretation Code Description Data Arlin rce(s) Supporting Document(s) C-Reactive Protein,Wide Range <3.00 Above high normal [facility] ID Date Data Source [id number] 07/13/2020 11:48:00 AM [facility] Value Range Interpretation Code Description Data Arlin rce(s) Supporting Document(s) Sodium 141 mmol/L 137-145 Normal (applies to non-numeric resul ts) [facility] Potassium 3.5-5.1 Normal (applies to non-numeric resul ts) [facility] Chloride 105 mmol/L 98-112 Normal (applies to non-numeric resul ts) [facility] Carbon Dioxide CO2 22.0-33.0 Normal (applies to non-numer ic results) [facility] Anion Gap 4.0-11.0 Normal (applies to non-numeric resul ts) [facility] BUN 15 mg/dL 7-17 Normal (applies to non-numeric resul ts) [facility] Creatinine 0.70-1.20 Below low normal [facility] GFR >60 Normal (applies to non-numeric results) [facility] Result based on MDRD formula. Glucose Level 164 mg/dL 74-[address] [facility] The reference range is only applicable w hen fasting. Calcium-Uncorrected 8.4-10.2 Normal (applies to non-nume antelmo results) [facility] Corrected Calcium 8.4-10.2 Normal (applies to non-numeri c results) [facility] Bilirubin,Total 0.2-1.3 Normal (applies to non-numeric results) [facility] SGOT(AST) 50 U/L 14-36 Above high normal [facility] SGPT(ALT) 55 U/L 9-52 Above high normal [facility] Alkaline Phosphatase 71 U/L 38-126 Normal (applies to non-num maureen results) [facility] can increase Alkaline Phosp le vels up to 2 times the normal adult value. Normal values for children and adolescents are 2 to 3 times the normal adult value. Total Protein 6.3-8.2 Normal (applies to non-numeric re sults) [facility] Albumin 3.5-5.0 Normal (applies to non-numeric resul ts) [facility] ID Date Data Source [id number] 07/13/2020 11:30:00 AM EST [facility] Name Value Range Interpretation Code Description Data Arlin rce(s) Supporting Document(s) White Blood Count 4.8-10.8 Normal (applies to non-numeri c results) [facility] Red Blood Count 3.68-5.22 Normal (applies to non-numeric results) [facility] Hemoglobin 11.2-15.7 Normal (applies to non-numeric resul ts) [facility] Hematocrit 34.1-44.9 Normal (applies to non-numeric resul ts) [facility] Mean Corpuscular Volume 81-99 Normal (applies to non- numeric results) [facility] Mean Corpuscular Hemoglobin 27.0-33.0 Normal (appli es to non-numeric results) [facility] Mean Corpuscular HGB Conc 32.0-36.0 Normal (applies to no n-numeric results) [facility] Red Cell Distribution Width 11.5-14.5 Normal (appli es to non-numeric results) [facility] Platelet Count 248 X10 3/uL 130-450 Normal (applies to non-numeric results) [facility] Mean Platelet Volume 9.5-12.7 Below low normal [facility] Imm Grans% (AUTO) 1 % 0-2 Normal (applies to non-numeri c results) [facility] Neutrophils % (AUTO) 76 % 40-75 Above high normal [facility] Lymphocytes % (AUTO) 11 % 21-46 Below low normal [facility] Monocytes % (AUTO) 10 % 5-12 Normal (applies to non-numer ic results) [facility] Eosinophils % (AUTO) 2 % 1-5 Normal (applies to non-num maureen results) [facility] Basophils % (AUTO) 0 % 0-1 Normal (applies to non-numer ic results) [facility] Imm Grans# (AUTO) 0.0-0.5 Normal (applies to non-numeri c results) [facility] Neutrophils # (AUTO) 1.5-8.1 Normal (applies to non-num maureen results) [facility] Lymphocytes # (AUTO) 1.0-3.1 Below low normal [facility] Monocytes # (AUTO) 0.2-1.3 Normal (applies to non-numer ic results) [facility] Eosinophils# (AUTO) 0.0-0.5 Normal (applies to non-nume antelmo results) [facility] Basophils # (AUTO) 0.0-0.1 Normal (applies to non-numer ic results) [facility] ID Date Data Source [id number] 07/10/2020 10:09:00 AM EST [facility] Name: YAIR MUSTAFA : 7 Age/Sex: 65F Ordering Provider: Dilan Quinones MD Med Rec #: [id number] Reg Status: DEP REF Room #: Date of Service: 07/10/20 Report Number: [id number] cc:Dilan Quinones MD Send Report To: [id number] US/US Abdomen Complete Reason for exam: NON [...] Date/Time: 07/10/20 0814 Transcribed Date/Time: 07/10/20 1009 Cattle Dipper: CARINE Name Value Range Interpretation Code Description Data Arlin rce(s) Supporting Document(s) ID Date Data Source [id number] 07/07/2020 01:59:00 PM EST [facility] Name Value Range Interpretation Code Description Data Arlin rce(s) Supporting Document(s) USTSH 2.33 uIU/mL 0.270-4.200 [facility] ID Date Data Source [id number] 07/07/2020 01:59:00 PM EST [facility] Name Value Range Interpretation Code Description Data Arlin rce(s) Supporting Document(s) D-DIMER < 0.19 mg/L [facility] CUT OFF VALUE = 0.5 mg/L The negative pr edictive value for DVT or PE is at 98% whenthe result is below the cut off. ID Date Data Source [id number] 07/05/2020 06:22:00 PM EST [facility] Name Value Range Interpretation Code Description Data Arlin rce(s) Supporting Document(s) TROPI < 0.015 ng/mL 0.000-0.[address] Date Data Source [id number] 07/05/2020 03:01:00 PM EST [facility] Exam Number: [id number] OF EXAMINATION : 07/05/2020 14:14 ESTCHEST SINGLE [...] rce(s) Supporting Document(s) ID Date Data Source [id number] 07/05/2020 03:14:00 PM EST [facility] Name Value Range Interpretation Code Description Data Arlin rce(s) Supporting Document(s) TROPI < 0.015 ng/mL 0.000-0.[address] [facility] Date Data Source [id number] 07/05/2020 03:14:[address] [facility] Name Value Range Interpretation Code Description Data Arlin rce(s) Supporting Document(s) GLU 168 mg/dL 70-110 [facility] Patients taking Sulfasalazine may have f alsely depressedGlucose levels. Patients taking Sulfapyridine may havefalsely elevated Glucose levels. Patients should be drawnfor Glucose before the initial administration of eitherdrug. BUN 16 mg/dL 7-23 [facility] CRE 0.444 mg/dL 0.500-1.300 [facility] GFR > 60 mL/min [facility] CHLORIDE 105 mmol/L 99-110 [facility] NA 139 mmol/L 136-147 [facility] POTASSIUM 3.5 mmol/L 3.5-5.1 [facility] TCO2 28 mmol/L 20-33 [facility] ANION GAP 9.5 10.0-20.0 [facility] CA 8.8 mg/dL 8.3-10.7 [facility] ALKALINE PHOS 65 U/L 45-117 [facility] TP 7.8 g/dL 6.0-7.8 [facility] ALB 4.2 g/dL 3.5-5.0 [facility] ESRD Dialysis patient Albumin reference range: 2.9-4.4 g/dL GL 3.6 g/dL 2.3-3.5 [facility] A/G 1.2 1.0-2.5 [facility] T. BILIRUBIN 0.4 mg/dL 0.1-1.1 [facility] [employer] [place] Total Bilirubin is n ot recommended forpatients undergoing treatment with eltrombopag (Promacta)due to the potential for falsely elevated results. ALTI 39 U/L 6-54 [facility] Patients taking Sulfasalazine and/or Sul fapyridine may havefalsely depressed ALT levels. Patients should be drawn forALT before the initial administration of either drug. AST 20 U/L 6-38 [facility] Patients taking Sulfasalazine and/or Sul fapyridine may havefalsely depressed AST levels. Patients should be drawn forAST before the initial administration of either drug. ID Date Data Source [id number] 07/05/2020 02:32:00 PM EST [facility] Name Value Range Interpretation Code Description Data Arlin rce(s) Supporting Document(s) WBC 7.00 x10E3/uL 4.0-10.5 [facility] RBC 4.78 x10E6/uL 4.20-5.40 [facility] Hemoglobin 14.5 g/dL 12.0-16.0 [facility] Hematocrit 43.7 % 37.0-47.0 [facility] MCV 91.4 fL 81.0-99.0 [facility] MCH 30.3 pg 27.0-31.0 [facility] MCHC 33.2 g/dL 32.7-35.6 [facility] RDW 12.2 % 11.5-14.0 [facility] Platelet count 310 x10E3/uL 150-450 [facility] ital MPV 8.9 fl 6.9-9.5 [facility] Neutrophils 68.6 % 34-64 [facility] Lymphocytes 21.9 % 25-45 [facility] Monocytes 6.6 % 1.7-10.6 [facility] Eosinophils 1.4 % 0.4-7.0 [facility] Basophils 0.4 % 0.1-2.0 [facility] Imm. Gran. 1.1 % 0.1-2.0 [facility] Abs. Neutro. 4.80 x10E3/uL 1.2-7.[address] [facility] Abs. Lymph. 1.53 x10E3/uL 1.0-3.5 [facility] Abs. Clarke. 0.46 x10E3/uL 0.1-1.0 [facility] Abs. Eosin. 0.10 x10E3/uL 0.1-0.7 [facility] Abs. Baso. 0.03 x10E3/uL 0.0-0.1 [facility] Abs. Imm. Gran. 0.08 x10E3/uL 0.0-0.1 [facility] spital ANRBC% 0 % 0 [facility] ID Date Data Source [id number] 07/05/2020 06:35:00 PM EST [facility] terName: Yair MustafaAge: 65 yrsSex: FemaleDOB: 1955MRN: [id number] Date: 07/05/2020Time: 13:46Account#: [id number] MD: Cesario QuinonesDiagnosis: Chest pain, unspecifiedPresentation:06/1613:52 Presenting complaint: Patient states: chest pain that started this tlmmonring, woke her up and has been continuous. Coronavirus Screening:Have you traveled internationally or had contact with someone thathas traveled and has been ill in the past 3 weeks? no Have youtraveled to a location with widespread or ongoing COVID-19 communityspread or outside of [facility]? no Flu-like symptoms reported in thelast 14 days: no. Have you had close contact with confirmed orsuspected COVID-19 case? no Have you been diagnosed with COVID-19 inthe past 30 days? no Are you currently on quarantine by [facility]? no. Communicable Disease Screen: Negative for fever>/= [...] mL Oral susp as . epi-pen as reevln06. Crestor 10 mg oral tab . metformin 500 mg Oral tab 1 tab three times a day13. Farxiga 10 mg oral tab 1 tab once daily14. naturemade daily15. Vitamin D3 oral daily- PMHx: Asthma; Diabetes mellitus;- Immunization history: Flu vaccine is up to date.- Social history: Smoking status: Patient states was never smoker ofto5211game. ETOH status Denies use of ETOH.- Advance Directives:: None.Screenin:33 Abuse screen: Denies threats or abuse. Denies injuries from another. sp4Sdoegskzoyx screening: No deficits noted. Offer of HIV testing:patient was previously offered screening. Fall Risk None identified.Assessment:16:00 General: Appears in no apparent distress, Behavior is cooperative, xb5fcbfjlre.16:00 Derm: No deficits noted. Neuro: Level of Consciousness is awake, xl8ldjot, obeys commands. Respiratory: Airway is patent Respiratoryeffort [...] Inserted peripheral IV: 20 gauge in left kh7vosxbujhxoy area and blood collected.16:00 Patient has correct armband on for positive identification. Placed in sd6vgbx. Bed in low position. Call light in reach.16:00 Verbal reassurance given. Pillow given. ef118:24 Cesario Quinones MD is Referral Physician. th418:34 No Physician assisted procedures completed. Discontinued lock intact, re2wnevkgor controlled, pressure dressing applied, No redness/swellingat site.Administered Medications:14:29 Drug: Aspirin 162 mg [aspirin 81 mg chewable tablet (2 tabs)] Route: sw2PO;18:33 Follow up: Response: No adverse reaction ef114:29 Drug: Nitrostat 0.4 mg [Nitrostat 0.4 mg sublingual tablet (1 tabs)] hw1Oysef: Sublingual;18:33 Follow up: Response: No adverse reaction qa7Iinquyi:18:25 Discharge ordered by . th418:28 Disposition: Discharged to home ambulatory. ef118:28 Condition: stable.18:28 Discharge instructions given to patient, Instructed on dischargeinstructions, follow up and referral plans. Demonstratedunderstanding of instructions.18:28 Discharge Assessment: Patient verbalized understanding of dispositioninstructions. Patient has no functional deficits.18:35 Patient left the ED. su9Eiowyajplk:Patricia Ruano RN RN Andre Ferrara MD MD yh4MfurtxAleisha Vasquez RN RN vi3FdbaGauri salazar, RN RN sw2 Name Value Range Interpretation Code Description Data Arlin rce(s) Supporting Document(s) ID Date Data Source [id number] 07/05/2020 06:35:00 PM EST [facility] Physician DocumentationClaxmalathi-Roxana Padron edical CenterName: Yair KeenangerAge: 65 yrsSex: FemaleDOB: 1955MRN: [id number] Date: 07/05/2020Time: 13:46Account#: [id number] MD: Maria Guadalupe Quinones Physician Andre BojorquezDisposition Summary:07/05/20 18:25Discharge OrderedLocation: Home Self Care pp4Iwjsefj: new in5Wrdzskak: have improved wk0Btqyciliz: Improved ng6Vnninnxpu- Chest pain, unspecified tq6Rwzkeiqa: th4- With: Cesario Quinones MD- When: 2 - 3 days- Reason: Recheck today's complaints, Continuance of careDischarge Instructions:- Discharge Summary Sheet th4- CHEST PAIN, NonCardiac yy3Vhgtx:- Medication Reconciliation th4- Medication Reconciliation Form - 2nd Copy il5Nlepnafivnl:06/1618:24 Critical Care: not applicable. th4HPI:14:14 This 65 yrs old White Female presents to ER via Private Vehicle with oy9ecgpglvtic of Chest Pain > 30 y/o.14:14 Patient [...] Double-Strength 400-400-40 mg/5 mL Oral susp as kiltlc37. epi-pen as isdris63. Crestor 10 mg oral tab ifdqntx47. metformin 500 mg Oral tab 1 tab three times a day13. Farxiga 10 mg oral tab 1 tab once daily14. naturemade daily15. Vitamin D3 oral daily- PMHx: Asthma; Diabetes mellitus;- Immunization history: Flu vaccine is up to date.- Social history: Smoking status: Patient states was never smoker [employer]. ETOH status Denies use of ETOH.- Advance Directives:: None.ROS:14:15 Constitutional: Negative for chills, fever. Eyes: Negative for acute oz2cnxahrv. ENT: Negative for nasal discharge, rhinorrhea, sinuscongestion. [...] given aspirin in the Emergency Department. The kz9zpszylx was not given beta chris in the Emergency Department. Datareviewed: vital signs, nurses notes, lab test result(s), EKG,radiologic studies, plain films. Data interpreted: lunchroom monitor:Interpretation: normal rate, normal rhythm. ED c ourse: [...] Troponin-I; Complete Time: 18:22 :14 Order name: Balloon Sander; Complete Time: 14:30 4:14 Order name: EKG.; Complete Time: 14:4:14 Order name: Pulse Ox Continuous; Complete Time: :4:14 Order name: Saline Lock; Complete Time: 14:4:14 Order name: Vital Signs per Triage policy; Complete Time: 14:4:14 Order name: Weigh Patient in Kg; Complete Time: 14:gu3Mojawkoda Medications:14:29 Drug: Aspirin 162 mg [aspirin 81 mg chewable tablet (2 tabs)] Route: sw2PO;18:33 Follow up: Response: No adverse reaction ef114:29 Drug: Nitrostat 0.4 mg [Nitrostat 0.4 mg sublingual tablet (1 tabs)] lz7Hyxol: Sublingual;18:33 Follow up: Response: No adverse reaction ef1EC:34 Rate is 117 beats/min. Rhythm is regular, Sinus tachycardia. Left ni4iphs deviation noted. QRS is negative in lead aVF. NH interval isnormal. QRS interval is normal. QT interval is normal. No Q waves. Twaves are Flattened in leads I, aVL, V4, V5, V6. ST Segment isdepressed in leads V2, V3, V4, V5, <1mm. Interpreted by me.Signatures:Dispatcher [employer] Patricia Dougherty RN RN tlmHowland, MD ROBERTA Garcia xh0Voek, JAMA Astorga RN ic2Ifhhud, Aleisha YUN ef1 Name Value Range Interpretation Code Description Data [facility](s) Supporting Document(s) ID Date Data Source [id number] 03/09/2020 07:06:00 PM EDT [facility] Name Value Range Interpretation Code Description Data [facility](s) Supporting Document(s) ALBUMIN,URINE 13.7 mg/L 5-17 [facility] MICROALB/CREAT 13.0 mg/g CR 0-[address] [facility] ital CREAT. URINE 105.0 mg/dL [facility] ID Date Data Source [id number] 03/09/2020 07:02:00 PM EDT [facility] Name Value Range Interpretation Code Description Data [facility](s) Supporting Document(s) CHOL 149 mg/dL 100-200 [facility] TRIG 188 mg/dL 30-190 [facility] HDL 42 mg/dL 35-80 [facility] LDL DIRECT 89 mg/dL 0-100 [facility] VLDL 18 mg/dL 0-100 [facility] ID Date Data Source [id number] 03/09/2020 07:02:[address] [facility] Name Value Range Interpretation Code Description Data Arlin rce(s) Supporting Document(s) GLU 157 mg/dL 70-110 [facility] Patients taking Sulfasalazine may have f alsely depressedGlucose levels. Patients taking Sulfapyridine may havefalsely elevated Glucose levels. Patients should be drawnfor Glucose before the initial administration of eitherdrug. BUN 12 mg/dL 7-23 [facility] CRE 0.423 mg/dL 0.500-1.300 [facility] GFR > 60 mL/min [facility] CHLORIDE 104 mmol/L 99-110 [facility] NA 142 mmol/L 136-147 [facility] POTASSIUM 3.6 mmol/L 3.5-5.1 [facility] TCO2 29 mmol/L 20-33 [facility] ANION GAP 12.6 10.0-20.0 [facility] CA 9.0 mg/dL 8.3-10.7 [facility] ALKALINE PHOS 56 U/L 45-117 [facility] TP 7.0 g/dL 6.0-7.8 [facility] ALB 3.8 g/dL 3.5-5.0 [facility] ESRD Dialysis patient Albumin reference range: 2.9-4.4 g/dL GL 3.2 g/dL 2.3-3.5 [facility] A/G 1.2 1.0-2.5 [facility] T. BILIRUBIN 0.4 mg/dL 0.1-1.1 [facility] [employer] [place] Total Bilirubin is n ot recommended forpatients undergoing treatment with eltrombopag (Promacta)due to the potential for falsely elevated results. ALTI 34 U/L 6-54 [facility] Patients taking Sulfasalazine and/or Sul fapyridine may havefalsely depressed ALT levels. Patients should be drawn forALT before the initial administration of either drug. AST 22 U/L 6-38 [facility] Patients taking Sulfasalazine and/or Sul fapyridine may havefalsely depressed AST levels. Patients should be drawn forAST before the initial administration of either drug. ID Date Data Source [id number] 03/09/2020 06:48:00 PM EDT [facility] Name Value Range Interpretation Code Description Data Arlin rce(s) Supporting Document(s) WBC 6.89 x10E3/uL 4.0-10.5 [facility] RBC 4.32 x10E6/uL 4.20-5.40 [facility] Hemoglobin 13.2 g/dL 12.0-16.0 [facility] Hematocrit 40.7 % 37.0-47.0 [facility] MCV 94.2 fL 81.0-99.0 [facility] MCH 30.6 pg 27.0-31.0 [facility] MCHC 32.4 g/dL 32.7-35.6 [facility] RDW 12.3 % 11.5-14.0 [facility] Platelet count 306 x10E3/uL 150-450 [facility] ital MPV 9.6 fl 6.9-9.5 [facility] Neutrophils 59.8 % 34-64 [facility] Lymphocytes 29.3 % 25-45 [facility] Monocytes 7.3 % 1.7-10.6 [facility] Eosinophils 2.3 % 0.4-7.0 [facility] Basophils 0.3 % 0.1-2.0 [facility] Imm. Gran. 1.0 % 0.1-2.0 [facility] Abs. Neutro. 4.1 x10E3/uL 1.2-7.6 [facility] Lymph. 2.0 x10E3/uL 1.0-3.[address] [facility] Abs. Clarke. 0.5 x10E3/uL 0.1-1.0 [facility] Abs. Eosin. 0.2 x10E3/uL 0.1-0.7 N [facility] l Abs. Baso. 0.0 x10E3/uL 0.0-0.1 [facility] Abs. Imm. Gran. 0.1 x10E3/uL 0.0-0.1 [facility] pital ANRBC% 0 % 0 [facility] ID Date Data Source [id number] 01/21/2020 12:26:00 PM EDT [facility] Name: YAIR MUSTAFA [facility] Rec #: [id number] : 1955 Age/Sex: 64F Date of Service: 01/21/20 DISPOSITION SUMMARY Discharge Summary [facility] Name:Yair [facility] Age:64 yrs Sex:Female [...] rce(s) Supporting Document(s) ID Date Data Source [id number] 01/21/2020 12:26:00 PM EDT [facility] Name: YAIR MUSTAFA [facility] Rec #: [id number] : 1955 Age/Sex: 64F Date of Service: 01/21/20 PHYSICIAN CHART Physician Documentation [facility] Name: Yair Mustafa Age: 64 yrs Sex: [...] he/she has never smoked tobacco. Preferred Language: Estonian. ROS: 12:55 Constitutional: Negative for fever. Cardiovascular: [...] 0, Product Selection Permitted Signatures: Dispatcher [employer] EDUT Lyle Bennett RNP RNP wn Kwame Lamb RN RN jg3 Rudy Carbajal MD MD aaq Name Value Range Interpretation Code Description Data Arlin rce(s) Supporting Document(s) ID Date Data Source [id number] 01/21/2020 12:26:00 PM EDT [facility] Name: YAIR MUSTAFA [facility] Rec #: [id number] : 1955 Age/Sex: 64F Date of Service: 01/21/20 NURSE CHART Nurse's Notes [facility] Name: Yair Mustafa Age: 64 yrs Sex: Female : 1955 Arrival Date: 01/21/2020 Time: 12:26 Bed FT1 [facility] MD: Dilan Quinones E Diagnosis: [...] 30 days? Yes, Where have you travelled? [facility] for allergy injections. Have you had contact [...] he/she has never smoked tobacco. Preferred Language: Estonian. Screenin:13 AUDIT 1. How often do you [...] wrist. sj 12:34 [facility] wn 12:34 Rudy Carbajal MD is [...] the ED. jg3 Signatures: Lyle Bennett RNP CAR PORTER Taylor Casillas RN RN Kwame Lamb, JAMA YUN j Flash Coello, Reg Reg kmo Name Value Range Interpretation Code Description Data Arlin rce(s) Supporting Document(s) ID Date Data Source [id number] 01/21/2020 01:29:00 PM EDT [facility] Name Value Range Interpretation Code Description Data [facility] rce(s) Supporting Document(s) Color,Urine Yellow Normal (applies to non-numeric resu lts) [facility] Clarity,Urine Clear Normal (applies to non-numeric re sults) [facility] Specific [place],Urine 1.001-1.030 Normal (applies to non- numeric results) [facility] PH,Urine 5.0-8.0 Normal (applies to non-numeric resul ts) [facility] Protein,Urine Negative Normal (applies to non-numeric re sults) [facility] Glucose,Urine (UA) Negative [facility] Ketones,Urine 40 mg/dL [facility] Blood,Urine Negative Normal (applies to non-numeric resu lts) [facility] Bilirubin,Urine Negative Normal (applies to non-numeric results) [facility] Urobilinogen,Urine Norm 0.2-1 Normal (applies to non-numer ic results) [facility] Leukocyte Esterase,Urine Negative Normal (applies to non -numeric results) [facility] Nitrite,Urine Negative Normal (applies to non-numeric re sults) [facility] ID Date Data Source [id number] 01/21/2020 01:54:00 PM EDT [facility] Name Value Range Interpretation Code Description Data [facility] Document(s) White Blood Count 4.8-10.8 Normal (applies to non-numeri c results) [facility] Red Blood Count 3.68-5.22 Normal (applies to non-numeric results) [facility] Hemoglobin 11.2-15.7 Normal (applies to non-numeric resul ts) [facility] Hematocrit 34.1-44.9 Normal (applies to non-numeric resul ts) [facility] Mean Corpuscular Volume 81-99 Normal (applies to non- numeric results) [facility] Mean Corpuscular Hemoglobin 27.0-33.0 Normal (appli es to non-numeric results) [facility] Mean Corpuscular HGB Conc 32.0-36.0 Normal (applies to no n-numeric results) [facility] Red Cell Distribution Width 11.5-14.5 Normal (appli es to non-numeric results) [facility] Platelet Count 258 X10 3/uL 130-450 Normal (applies to non-numeric results) [facility] Mean Platelet Volume 9.5-12.7 Below low normal [facility] Imm Grans% (AUTO) 1 % 0-2 Normal (applies to non-numeri c results) [facility] Neutrophils % (AUTO) 75 % 40-75 Normal (applies to non-num maureen results) [facility] Lymphocytes % (AUTO) 16 % 21-46 Below low normal [facility] Monocytes % (AUTO) 7 % 5-12 Normal (applies to non-numer ic results) [facility] Eosinophils % (AUTO) 1 % 1-5 Normal (applies to non-num maureen results) [facility] Basophils % (AUTO) 1 % 0-1 Normal (applies to non-numer ic results) [facility] Imm Grans# (AUTO) 0.0-0.5 Normal (applies to non-numeri c results) [facility] Neutrophils # (AUTO) 1.5-8.1 Normal (applies to non-num maureen results) [facility] Lymphocytes # (AUTO) 1.0-3.1 Normal (applies to non-num maureen results) [facility] Monocytes # (AUTO) 0.2-1.3 Normal (applies to non-numer ic results) [facility] Eosinophils# (AUTO) 0.0-0.5 Normal (applies to non-nume antelmo results) [facility] Basophils # (AUTO) 0.0-0.1 Normal (applies to non-numer ic results) [facility] ID Date Data Source [id number] 01/21/2020 01:31:00 PM EDT [facility] Name Value Range Interpretation Code Description Data Arlin rce(s) Supporting Document(s) Sodium 139 mmol/L 137-145 Normal (applies to non-numeric resul ts) [facility] Potassium 3.5-5.1 Below low normal [facility] Chloride 105 mmol/L 98-112 Normal (applies to non-numeric resul ts) [facility] Carbon Dioxide CO2 22.0-33.0 Normal (applies to non-numer ic results) [facility] Anion Gap 4.0-11.0 Normal (applies to non-numeric resul ts) [facility] BUN 13 mg/dL 7-17 Normal (applies to non-numeric resul ts) [facility] Creatinine 0.70-1.20 Below low normal [facility] GFR >60 Normal (applies to non-numeric results) [facility] Result based on MDRD formula. Glucose Level 165 mg/dL 74-[address] [facility] The reference range is only applicable w hen fasting. Calcium-Uncorrected 8.4-10.2 Normal (applies to non-nume antelmo results) [facility] Corrected Calcium 8.4-10.2 Normal (applies to non-numeri c results) [facility] Bilirubin,Total 0.2-1.3 Normal (applies to non-numeric results) [facility] SGOT(AST) 18 U/L 14-36 Normal (applies to non-numeric resul ts) [facility] SGPT(ALT) 29 U/L 9-52 Normal (applies to non-numeric resul ts) [facility] Alkaline Phosphatase 57 U/L 38-126 Normal (applies to non-num maureen results) [facility] can increase Alkaline Phosp le vels up to 2 times the normal adult value. Normal values for children and adolescents are 2 to 3 times the normal adult value. Total Protein 6.3-8.2 Normal (applies to non-numeric re sults) [facility] Albumin 3.5-5.0 Normal (applies to non-numeric resul ts) [facility] ID Date Data Source [id number] 01/21/2020 01:31:00 PM EDT [facility] Name Value Range Interpretation Code Description Data Arlin rce(s) Supporting Document(s) C-Reactive Protein,Wide Range <3.00 Normal (applies t o non-numeric results) [facility] Procedure Social History Code Duration Value [...] [facility] ID Date Data Source [id number] 09/05/2020 01:33:00 AM [facility] Hospital Name Value Range Interpretation Code Description Data Source(s) Weight (Calculated Kilograms) 80.74 80.74 [facility] Height (Calculated Centimeters) 157.48 157. 48 [facility] Body Mass Index (BMI) 32.5 32.5 [facility] Hospital ID Date Data Source [id number] 07/14/2020 01:46:00 PM [facility] Hospital Name Value Range Interpretation Code Description Data Source(s) Weight (Calculated Kilograms) 80.74 80.74 [facility] Height (Calculated Centimeters) 157.48 157. 48 [facility] Body Mass Index (BMI) 32.5 32.5 [facility] Weight (Calculated Kilograms) 80.74 80.74 [facility] Height (Calculated Centimeters) 157.48 157. 48 [facility] Body Mass Index (BMI) 32.5 32.5 [facility] Weight (Calculated Kilograms) 80.74 80.74 [facility] Height (Calculated Centimeters) 157.48 157. 48 [facility] Body Mass Index (BMI) 32.5 32.5 [facility] Hospital ID Date Data Source [id number] 07/11/2020 12:38:00 AM [facility] Hospital Name Value Range Interpretation Code Description Data Source(s) Weight (Calculated Kilograms) 80.74 80.74 [facility] Height (Calculated Centimeters) 157.48 157. 48 [facility] Body Mass Index (BMI) 32.5 32.5 [facility] ID Date Data Source [id number] 03/28/2020 07:50:00 AM [facility] Name Value Range Interpretation Code Description Data Source(s) Weight (Calculated Kilograms) 80.74 80.74 [facility] Height (Calculated Centimeters) 157.48 157. 48 [facility] Body Mass Index (BMI) 32.5 32.5 [facility] Hospital ID Date Data Source [id number] 01/22/2020 02:14:00 PM [facility] Hospital Name Value Range Interpretation Code Description Data Source(s) Weight (Calculated Kilograms) 80.74 80.74 [facility] Height (Calculated Centimeters) 157.48 157. 48 [facility] Body Mass Index (BMI) 32.5 32.5 [facility] Weight (Calculated Kilograms) 80.74 80.74 [facility] Height (Calculated Centimeters) 157.48 157. 48 [facility] Body Mass Index (BMI) 32.5 32.5 [facility]
[2020-09-08] MEDS ORDERED: ISOVUE-370 76% 100ML VIAL As Ordered ONE (14:22)
--- NOTE | 2020-09-08 15:00 | REP ---
INDICATION: lower abd pain, tearing sensation after coughing. COMPARISON: None. TECHNIQUE: Helical scanning was acquired and 4 mm axial images are re-formatted. Coronal and sagittal MPR images were generated and reviewed. The contrast enhancement dose is 100 mL of intravenous Isovue 370. FINDINGS: Preliminary digital [employer] [address] [employer] [address] radiograph is unremarkable. Normal bowel gas pattern. The liver is prominent. On axial CT images, the lung bases are clear. There is no evidence of pleural effusion or upper abdominal ascites. Axial CT images demonstrate that both the liver and the spleen are enlarged. Vertical span of the liver in the midclavicular line is 17.9 cm. The spleen measures 13.3 cm in greatest dimension. No focal hepatic or splenic lesion is seen. There is mild diffuse fatty infiltration of the liver. Normal adrenal glands are observed bilaterally. No abnormality is noted in the pancreas. The gallbladder is unremarkable. The kidneys enhance symmetrically. There is an accessory lower pole right renal artery. No retroperitoneal mass or adenopathy is seen. Small and large intestinal bowel loops are normal in the abdomen and pelvis. The uterus is surgically absent. Urinary bladder is unremarkable. No abdominal wall defect is seen. And the appendix is surgically absent. No bony destructive lesion is seen. IMPRESSION: Mild hepatosplenomegaly. Fatty infiltration of the liver. Status post appendectomy and hysterectomy. No acute abdominal or pelvic abnormality. <Electronically signed by Dirk Madrigal > 09/08/20 [id number]
[2020-09-08 16:40] VITALS: BP 136/63
== END 2020-09-08 16:56 | disposition home or self-care (01) ==
LOC: M ED 12:34
DX: R10.2 Pelvic and perineal pain (principal); E11.9 Type 2 diabetes mellitus without complications; K21.9 Gastro-esophageal reflux disease without esophagitis; Z88.0 Allergy status to penicillin; Z88.1 Allergy status to other antibiotic agents; Z88.2 Allergy status to sulfonamides; Z88.5 Allergy status to narcotic agent; Z88.8 Allergy status to other drugs, medicaments and biological substances
CPT/HCPCS: 74177; 80047; 81001; 85025; 96360; 96361; 99283; G0463; Q9967

== ENCOUNTER → 2021-03-06 | Outpatient (CLI) | payer MEDICARE, BC ==
--- NOTE | 2021-03-06 16:30 | REP ---
INDICATION: VICENTA SCR MAMMO/Z12.31. COMPARISON: Multiple TECHNIQUE: Digital screening mammography was carried out bilaterally in the CC and MLO projections and compared to the prior exams. By history, the patient has no complaints of a palpable breast abnormality or other significant breast complaints. FINDINGS: The breasts are unchanged in size and shape. There are no maksim soft tissue densities or spiculated masses. There is no internal architectural distortion. There are no suspicious calcifications. There is no skin thickening or nipple retraction. The Volpara volumetric breast density pattern is b. IMPRESSION: BIRADS/ACR category 1 negative mammogram. This patient's [facility] lifetime breast cancer risk assessment score is 9.3%. This mammogram was interpreted with the aid of an FDA-approved computer-aided detection system. The patient states she had a clinical breast exam in over a year. The patient letter being requested is M1. RECOMMENDATION: Repeat screening mammography recommended 1 year (for women over 40). <Electronically signed by Alexandru Peña > 03/06/21 [id number]
== END ==
LOC: M WHC 15:44
PROVIDERS: ATTEND Emergency Medicine
DX: Z12.31 Encounter for screening mammogram for malignant neoplasm of breast (principal)

== ENCOUNTER → 2021-03-15 | Outpatient (CLI) | payer MEDICARE, BC ==
[~2021-03-15] MED LIST: ISOVUE-370 76% 100ML VIAL As Ordered ONE
--- NOTE | 2021-03-16 07:55 | REP ---
INDICATION: LT BUTTOCK MASS/ LABS 1ST, CT 2ND. COMPARISON: 09/08/2020 TECHNIQUE: Axial contrast-enhanced images of the pelvis using 100 cc Isovue 370 intravenous contrast material with coronal and sagittal reformations. This CT examination was performed using the following dose reduction techniques: Automated exposure control, adjustment of mA and/or kv according to the patient's size, and use of iterative reconstruction technique. FINDINGS: Pelvis demonstrates partially collapsed normal bladder and evidence for prior hysterectomy. Visualized portions of the small and large bowel including the rectosigmoid and anus appear normal. Visualized portions of the gallbladder and bilateral kidneys appear normal. Osseous structures demonstrate age-related changes without acute abnormality. Overlying musculature and subcutaneous tissues appear essentially age-appropriate. No obvious mass lesion or significant asymmetric densities appreciated. IMPRESSION: No obvious abnormality by CT evaluation. <Electronically signed by Sohail Nino > 03/16/21 [id number]
== END ==
LOC: M RAD 15:40
PROVIDERS: ATTEND Surgery
DX: Z01.818 Encounter for other preprocedural examination (principal); M79.9 Soft tissue disorder, unspecified; R22.9 Localized swelling, mass and lump, unspecified
CPT/HCPCS: 36415; 72193; 82565; 84520; Q9967

== ENCOUNTER → 2021-03-15 | Outpatient (CLI) | payer MEDICARE, BC ==
[2021-03-15 17:07] LABS: BLOOD UREA NITROGEN 24 MG/DL (7-18); CREATININE FOR GFR 0.36 MG/DL (0.55-1.30); GLOMERULAR FILTRATION RATE > 60.0 (>45)
== END ==
LOC: M LAB 15:52
PROVIDERS: ATTEND Physician Assistant
DX: Z01.818 Encounter for other preprocedural examination (principal)

== ENCOUNTER → 2022-03-19 | Outpatient (CLI) | payer MEDICARE, BC | LOC: M WHC 13:50 | PROVIDERS: ATTEND Family Medicine | DX: Z12.31 Encounter for screening mammogram for malignant neoplasm of breast (principal) ==

== ENCOUNTER → 2023-03-20 | Outpatient (CLI) | payer MEDICARE, BC | LOC: M WHC 11:01 | PROVIDERS: ATTEND Family Medicine | DX: Z12.31 Encounter for screening mammogram for malignant neoplasm of breast (principal) ==

== ENCOUNTER → 2024-03-31 | Outpatient (CLI) | payer MEDICARE | LOC: M WHC 12:11 | PROVIDERS: ATTEND Family Medicine | DX: Z12.31 Encounter for screening mammogram for malignant neoplasm of breast (principal) ==

== ENCOUNTER → 2024-12-26 | Outpatient (CLI) | payer MEDICARE, BC | LOC: M SLEEP 20:00 | PROVIDERS: ATTEND Nurse Practitioner Adult Health | DX: G47.33 Obstructive sleep apnea (adult) (pediatric) (principal) ==

== ENCOUNTER → 2025-04-26 | Outpatient (CLI) | payer MEDICARE, BC | LOC: M WHC 15:50 | PROVIDERS: ATTEND Family Medicine | DX: Z12.31 Encounter for screening mammogram for malignant neoplasm of breast (principal); R92.313 Mammographic fatty tissue density, bilateral breasts ==